=== PATIENT | female | born 1955 | race Caucasian/White ===

== ENCOUNTER 2019-08-31 18:52 | Inpatient (IN) ==
[2019-08-31 19:50] LABS: Base Excess VBG 7.5 mEq/L; Basophils # (auto) 0.03 K/uL (0-0.2); Basophils % (auto) 0.3 %; Eosinophils % (auto) 3.4 %; Hematocrit (blood only) 39.4 % (37-47); Hemoglobin 13.7 g/dL (12.0-16.0); Immature Granulocytes # (auto) 0.01 K/uL (0.00-0.02); Immature Granulocytes % (auto) 0.1 %; Lymphocytes # (auto) 1.65 K/uL (1.2-3.4); Lymphocytes % (auto) 18.6 %; Mean Corpuscular Hemoglobin 32.7 pg (25-34); Mean Corpuscular Hgb Conc 34.8 g/dL (32-36); Mean Platelet Volume 10.8 fL (7.4-10.4); Monocytes # (auto) 0.59 K/uL (0.11-0.59); Monocytes % (auto) 6.7 %; Neutrophils # (auto) 6.28 K/uL (1.4-6.5); Neutrophils % (auto) 70.9 %; Oxygen Saturation VBG 82.5 %; Platelet Count 232 K/uL (130-400); RDW Coefficient of Variation 12.8 % (11.5-14.5); RDW Standard Deviation 43.6 fL (36.4-46.3); Red Blood Count 4.19 M/uL (4.2-5.4); White Blood Count 8.86 K/uL (4.8-10.8); pH VBG 7.46 (7.36-7.41)
[2019-08-31 19:56] LABS: Partial Thromboplastin Time 27.2 Seconds (21.0-31.0); Prothrombin Time 10.5 Seconds (9.0-12.0)
[2019-08-31 20:01] LABS: Calcium 9.1 mg/dl (8.5-10.1); Creatinine Clr Calc Pharmacy 116.6 ml/min; Est GFR (African American) 111.2; Potassium 3.1 mmol/L (3.5-5.1)
--- NOTE | 2019-08-31 20:01 | XRay Report ---
XR chest 1V portable HISTORY: Atypical Chest Pain COMPARISON: None. FINDINGS: The cardiac silhouette is mildly enlarged. Mild diffuse interstitial thickening which is li terell chronic. No focal lung consolidations to suggest pneumonia. No evidence for pulmonary edema. No pleural effusions. No pneumothorax. IMPRESSION: Mild cardiomegaly and interstitial thickening which is likely chronic. ACT 112: Negative or not required by law. Electronically signed by: Juan Graff M.D. 08/31/2019 8:00 PM
[2019-08-31 20:10] LABS: Troponin I 0.049 ng/ml (0-0.045)
[2019-08-31] MEDS ORDERED: OPTIRAY 320 125ml IV PRN (20:43)
--- NOTE | 2019-08-31 20:57 | CT Scan Report ---
CHEST CTA for PULMONARY ARTERIES CT DOSE: 1083.39 mGy.cm HISTORY: Shortness of breath. TECHNIQUE: Multiaxial CT images of the chest were performed following the intravenous administration of contrast to evaluate the pulmonary arteries. Maximal intensity projection images were also obtaine d. A dose lowering technique was utilized adhering to the principles of ALARA. COMPARISON STUDY: None. FINDINGS: Mild calcified plaque within the normal caliber thoracic aorta. Inadequate contrast opacifi cation of the aorta to assess for a dissection. The heart is borderline enlarged. No pleural or peric ardial effusions. No filling defects within the pulmonary arteries to suggest pulmonary embolus. No f ractures within the visualized osseous structures. No mediastinal or hilar lymphadenopathy. Limited v iews of the upper abdomen demonstrate a normal liver and spleen. The visualized adrenal glands are un remarkable. Normal esophagus. Mild interlobular septal thickening. Patchy groundglass densities at th e lung bases favor mild dependent change. The central airways are patent. No pneumothorax. IMPRESSION: 1. No evidence for pulmonary embolus. 2. Mild interlobular septal thickening. This could represent developing pulmonary edema or a chronic interstitial process 3. Patchy groundglass densities at the lung bases favor mild dependent change. ACT 112: Negative or not required by law. Electronically signed by: Juan Graff M.D. 08/31/2019 8:56 PM
[2019-08-31] MEDS ORDERED: POTASSIUM CHLORIDE 10 MEQ TABCR PO STA (21:06)
[2019-08-31] MEDS ORDERED: FUROSEMIDE 40 MG/4 ML VIAL IV STA (21:06)
[2019-08-31] MEDS ORDERED: METOPROLOL TARTRATE 25 MG TAB PO STA (22:05)
[2019-08-31] MEDS ORDERED: ALBUT/IPRATROP 3MG/0.5MG NEB 3 ML VIAL NEB STA (22:07)
--- NOTE | 2019-08-31 22:17 | Emergency Department Note ---
Entered by Pilar Greene acting as a scribe for History of Present Illness General Chief complaint: Shortness of Breath/Dyspnea Stated complaint: SOB, HEAVY CHEST, FLUID IN FEET Time Seen by Provider: 08/31/19 19:13 History of Present Illness Provider complaint: shortness of breath Onset (ago): day(s) 3 Pain Consistency: + other (episode) Maximum Pain Intensity: 0 Quality: + other (shortness of breath) Exacerbated By: + other (lying flat) Associated symptoms: + cough (productive) and + other (elevated blood pressure, bilateral lower extremity swelling, recent weight gain, smoker) The patient is a 63 year old female who presents to the ED with complaints of an episode of shortness of breath that started 3 days ago. The patient states that her blood pressure has been higher than it has ever been in the past despite taking her medication. The patient states that she has also has a productive cough, bilateral swelling in her lower extremities and she believes she has been gaining weight. The patient notes that the only way she can sleep is propped upwards in a recliner because the shortness of breath is exacerbated by lying flat. The patient notes that she has a history of sleep apnea and she is a smoker. Patient denies any chest pain at this time. Home Medications Home Medications Medication Instructions Recorded Confirmed Type aspirin 81 mg PO HS 08/31/19 08/31/19 History atorvastatin 40 mg PO HS 08/31/19 08/31/19 History dorzolamide-timolol 1 drp OPB AMHS 08/31/19 08/31/19 History fluoxetine 40 mg PO HS 08/31/19 08/31/19 History furosemide 20 mg PO DAILY PRN 08/31/19 08/31/19 History latanoprost 1 drp OPB HS 08/31/19 08/31/19 History losartan 50 mg PO QAM 08/31/19 08/31/19 History omeprazole 20 mg PO QAM 08/31/19 08/31/19 History potassium chloride 10 meq PO QAM 08/31/19 08/31/19 History Allergies Allergy/AdvReac Type Severity Reaction Status Date / Time propoxyphene AdvReac Mild Nausea Verified 08/31/19 20:29 [From [facility]or] Past Med/Surg History Medical History (Updated 08/31/19 @ 21:14 by Pilar Greene) HTN (hypertension) Social History Feels Safe at Home: Yes Smoking Status: Current every day smoker Review of Systems See HPI for pertinent positives & negatives. and A total of 10 systems reviewed and were otherwise negative Physical Exam Vital Signs Vital Signs - 24 hr 08/31/19 19:06 08/31/19 19:45 08/31/19 20:52 Temperature 37.3 C Temperature Source Oral Pulse Rate 88 Pulse Rate [Apical] 85 Respiratory Rate 24 22 Respiratory Rate [Exercises] 24 Respiratory Rate [Recovery] 30 H Respiratory Rate [Resting] 20 Respiratory Effort / Characteristics Non-Labored Respiratory Depth Normal Blood Pressure 197/102 H Blood Pressure [Left Arm] 186/109 H Blood Pressure Mean 133 Blood Pressure Mean [Left Arm] 134 Pulse Oximetry 90 89 L Pulse Oximetry [Exercises] 85 L Pulse Oximetry [Recovery] 82 L Pulse Oximetry [Resting] 89 L Oxygen Delivery Method Room Air Room Air Nasal Cannula Oxygen Flow Rate 2 Sepsis Recent Fever Within 48 Hours No Sepsis Action Taken by Nursing No Action Required 08/31/19 20:54 Temperature Temperature Source Pulse Rate Pulse Rate [Apical] Respiratory Rate Respiratory Rate [Exercises] Respiratory Rate [Recovery] Respiratory Rate [Resting] Respiratory Effort / Characteristics Respiratory Depth Blood Pressure Blood Pressure [Left Arm] Blood Pressure Mean Blood Pressure Mean [Left Arm] Pulse Oximetry 93 Pulse Oximetry [Exercises] Pulse Oximetry [Recovery] Pulse Oximetry [Resting] Oxygen Delivery Method Nasal Cannula Oxygen Flow Rate 3 Sepsis Recent Fever Within 48 Hours Sepsis Action Taken by Nursing GENERAL: She is oriented to person, place, and time. She appears well-developed and well-nourished. She does not appear distressed. HENT: Exam performed. -Head: Normocephalic and atraumatic. -Right Ear: External ear normal. No mastoid tenderness. -Left Ear: External ear normal. No mastoid tenderness. -Mouth/Throat: The oropharynx is clear and moist. No trismus in the jaw. No dental abscesses or uvula swelling. No oropharyngeal exudate or tonsillar abscesses. EYES: Conjunctivae and EOM are normal. Pupils are equal, round, and reactive to light. Right eye exhibits no discharge. Left eye exhibits no discharge. No scleral icterus. NECK: Normal range of motion. Neck supple. No JVD present. No spinous process tenderness present. No carotid bruit present. No rigidity. No tracheal deviation and normal range of motion present. No Brudzinski's sign and no Kernig's sign noted. CV: Normal rate, regular rhythm, normal heart sounds and intact distal pulses. There is no peripheral edema. Palpable radial pulses bue. PULM/CHEST: Rales at bilateral bases. No respiratory distress. No stridor. She has no wheezes. Chest Wall: She exhibits no tenderness. ABD: The abdomen is soft. Bowel sounds are normal. She has no distension. No mass is present. There is no tenderness. There is no rebound, no guarding, no Zaidi's sign and no tenderness at McBurney's point. Rovsig negative MUSC/SKEL: 2+ pitting edema in bilateral lower extremities. Normal range of motion. There is no peripheral deformity. LYMPH: No cervical adenopathy. NEURO: She is alert and oriented to person, place, and time. She has normal s trength. No cranial nerve deficit or sensory deficit. Coordination and gait normal. GCS eye subscore is 4. GCS verbal subscore is 5. GCS motor subscore is 6. cerbellar tests wnl. SKIN: Skin is warm and dry. She is not diaphoretic. PSYCH: She has a normal mood and affect. Her behavior is normal. Judgment and thought content normal. Course Course 1914: Past medical records reviewed. The patient was evaluated in room C08. A complete history and physical exam was performed. 1948: Upon ambulation, the patient's oxygen came down to 82% on RA. I put her on oxygen at this time. 2108: Vital signs stable on supplemental oxygen. Imaging shows cardiomegaly and developing pulmonary edema. Labs show a proBNP that is negative and a slightly elevated troponin. Given the patient's history and physical, is thought that the patient is suffering from congestive heart failure. It is thought that the patient's mild troponin elevation is due to the just of heart failure. Patient continues to deny any chest pain at this time. Given that she is not having any chest pain, no heparinization will be done at this time and the patient's troponins will be trended by the admitting hospitalist team. I discussed the patient's case with Dr. Regan Zuleta Hospitalist. He will evaluate the patient for further management. Consultations Consultation #1: I discussed the patient's case with Dr. Regan Zuleta Hospitalist. He will evaluate the patient for further management. Time: 21:09 Administered Medications Ioversol (Optiray 320 125ml) 119 ml IV ONCE PRN PRN Reason: Interaction Checking Stop: 09/04/19 20:42 Last Admin: 08/31/19 20:44 Dose: 119 ml Documented by: [id number] Discontinued Medications Furosemide (Lasix) 40 mg IV NOW STA Stop: 08/31/19 21:07 Last Admin: 08/31/19 21:23 Dose: 40 mg Documented by: [id number] Potassium Chloride (Klor-Con M10) 40 meq PO NOW STA Stop: 08/31/19 21:07 Last Admin: 08/31/19 21:23 Dose: 40 meq Documented by: [id number] Critical Care Time Critical Care Time: Yes Total Critical Care Time: 63 I have personally spent 63 minutes of critical care time in the direct management of this patient. This includes bedside care, interpretation of diagno stic studies, and testing, discussion with consultants, patient, and family members, and other required patient management activities. This 63 minutes is in excess of all separately billable procedures. Medical Decision Making Medical Records Attestation: I reviewed the patient's medical records. Home Medications Current Medication List: was personally reviewed by me Laboratory Data Attestation: I reviewed the patient's lab results. Result diagrams: 08/31/19 19:27 08/31/19 19:27 Lab Results 08/31/19 08/31/19 08/31/19 Range/Units 19:27 19:27 19:27 WBC 8.86 (4.8-10.8) K/uL RBC 4.19 L (4.2-5.4) M/uL Hgb 13.7 (12.0-16.0) g/dL Hct 39.4 (37-47) % MCV 94.0 (80-100) fL MCH 32.7 (25-34) pg MCHC 34.8 (32-36) g/dL RDW Std Deviation 43.6 (36.4-46.3) fL RDW Coeff of Genaro 12.8 (11.5-14.5) % Plt Count 232 (130-400) K/uL MPV 10.8 H (7.4-10.4) fL Immature Gran % (Auto) 0.1 % Neut % (Auto) 70.9 % Lymph % (Auto) 18.6 % [place] % (Auto) 6.7 % Eos % (Auto) 3.4 % Baso % (Auto) 0.3 % Immature Gran # (Auto) 0.01 (0.00-0.02) K/uL Neut # (Auto) 6.28 (1.4-6.5) K/uL Lymph # (Auto) 1.65 (1.2-3.4) K/uL [place] # (Auto) 0.59 (0.11-0.59) K/uL Eos # (Auto) 0.30 (0-0.5) K/uL Baso # (Auto) 0.03 (0-0.2) K/uL PT 10.5 (9.0-12.0) Seconds INR 1.0 (0.9-1.1) APTT 27.2 (21.0-31.0) Seconds PTT Ratio 1.0 VBG pH 7.46 H (7.36-7.41) VBG pCO2 47 (38-50) mmHg VBG pO2 50 mmHg VBG HCO3 32 mmol/L VBG O2 Saturation 82.5 % VBG Base Excess 7.5 mEq/L Barometric Pressure 728.4 mm/Hg Sodium (136-145) mmol/L Potassium (3.5-5.1) mmol/L Chloride (98-107) mmol/L Carbon Dioxide (21-32) mmol/L Anion Gap (3-11) BUN (7-18) mg/dl Creatinine (0.6-1.2) mg/dl Est Cr Clr Drug Dosing ml/min Est GFR ( Amer) Est GFR (Non-Af Amer) BUN/Creatinine Ratio (10-20) Glucose (70-99) mg/dl Calcium (8.5-10.1) mg/dl Troponin I (0-0.045) ng/ml NT-Pro-B Natriuret Pep (0-900) pg/ml Lipase (73-393) U/L 08/31/19 Range/Units 19:27 WBC (4.8-10.8) K/uL RBC (4.2-5.4) M/uL Hgb (12.0-16.0) g/dL Hct (37-47) % MCV (80-100) fL MCH (25-34) pg MCHC (32-36) g/dL RDW Std Deviation (36.4-46.3) fL RDW Coeff of Genaro (11.5-14.5) % Plt Count (130-400) K/uL MPV (7.4-10.4) fL Immature Gran % (Auto) % Neut % (Auto) % Lymph % (Auto) % [place] % (Auto) % Eos % (Auto) % Baso % (Auto) % Immature Gran # (Auto) (0.00-0.02) K/uL Neut # (Auto) (1.4-6.5) K/uL Lymph # (Auto) (1.2-3.4) K/uL [place] # (Auto) (0.11-0.59) K/uL Eos # (Auto) (0-0.5) K/uL Baso # (Auto) (0-0.2) K/uL PT (9.0-12.0) Seconds INR (0.9-1.1) APTT (21.0-31.0) Seconds PTT Ratio VBG pH (7.36-7.41) VBG pCO2 (38-50) mmHg VBG pO2 mmHg VBG HCO3 mmol/L VBG O2 Saturation % VBG Base Excess mEq/L Barometric Pressure mm/Hg Sodium 143 (136-145) mmol/L Potassium 3.1 L (3.5-5.1) mmol/L Chloride 106 (98-107) mmol/L Carbon Dioxide 32 (21-32) mmol/L Anion Gap 5.0 (3-11) BUN 12 (7-18) mg/dl Creatinine 0.62 (0.6-1.2) mg/dl Est Cr Clr Drug Dosing 116.6 ml/min Est GFR ( Amer) 111.2 Est GFR (Non-Af Amer) 96.0 BUN/Creatinine Ratio 19.0 (10-20) Glucose 111 H (70-99) mg/dl Calcium 9.1 (8.5-10.1) mg/dl Troponin I 0.049 H* (0-0.045) ng/ml NT-Pro-B Natriuret Pep 618 (0-900) pg/ml Lipase 113 (73-393) U/L Imaging Data Radiologist's Impression: Radiology results as stated below per my review and the radiologist's interpretation: XR chest 1V portable HISTORY: Atypical Chest Pain COMPARISON: None. FINDINGS: The cardiac silhouette is mildly enlarged. Mild diffuse interstitial thickening which is likely chronic. No focal lung consolidations to suggest pneumonia. No evidence for pulmonary edema. No pleural effusions. No pneumothorax. IMPRESSION: Mild cardiomegaly and interstitial thickening which is likely chronic. ACT 112: Negative or not required by law. Electronically signed by: Juan Graff M.D. 08/31/2019 8:00 PM CHEST CTA for PULMONARY ARTERIES CT DOSE: 1083.39 mGy.cm HISTORY: Shortness of breath. TECHNIQUE: Multiaxial CT images of the chest were performed following the intravenous administration of contrast to evaluate the pulmonary arteries. Maximal intensity projection images were also obtained. A dose lowering techniq ue was utilized adhering to the principles of ALARA. COMPARISON STUDY: None. FINDINGS: Mild calcified plaque within the normal caliber thoracic aorta. Inadequate contrast opacification of the aorta to assess for a dissection. The heart is borderline enlarged. No pleural or pericardial effusions. No filling defects within the pulmonary arteries to suggest pulmonary embolus. No fractures within the visualized osseous structures. No mediastinal or hilar lymphadenopathy. Limited views of the upper abdomen demonstrate a normal liver and spleen. The visualized adrenal glands are unremarkable. Normal esophagus. Mild interlobular septal thickening. Patchy groundglass densities at the lung bases favor mild dependent change. The central airways are patent. No pneumothorax. IMPRESSION: 1. No evidence for pulmonary embolus. 2. Mild interlobular septal thickening. This could represent developing pulmonary edema or a chronic interstitial process 3. Patchy groundglass densities at the lung bases favor mild dependent change. ACT 112: Negative or not required by law. Electronically signed by: Juan Graff M.D. 08/31/2019 8:56 PM ECG Data Attestation: I personally reviewed and interpreted this ECG as follows: Indication: + SOB/dyspnea Rate (beats per minute): 86 Rhythm: + sinus rhythm ECG Intervals/blocks: + Normal QRS, + Normal MD and + Normal QT-c ECG ST segments: no ST depression and no ST elevation Blood Pressure Blood Pressure Findings: Elevated blood pressure Blood Pressure Disposition: further management by hospitalist [facility] Narrative 1915: Past medical records reviewed. The patient was evaluated in room C08. A complete history and physical exam was performed. 1948: Upon ambulation, the patient's oxygen came down to 82% on RA. I put her on oxygen at this time. 2108: Vital signs stable on supplemental oxygen. Imaging shows cardiomegaly and developing pulmonary edema. Labs show a proBNP that is negative and a slightly elevated troponin. Given the patient's history and physical, is thought that the patient is suffering from congestive heart failure. It is thought that the patient's mild troponin elevation is due to the just of heart failure. Patient continues to deny any chest pain at this time. Given that she is not having any chest pain, no heparinization will be done at this time and the patient's troponins will be trended by the admitting hospitalist team. I discussed the patient's case with Dr. Regan Zuleta Hospitalist. He will evaluate the patient for further management. Impression & Plan Hypoxia, CHF (congestive heart failure) Discharge Plan Visit Data Chief Complaint: Shortness of Breath/Dyspnea Stated Complaint: SOB, HEAVY CHEST, FLUID IN FEET ED Provider: Frank Macias Discharge Problem: Hypoxia, CHF (congestive heart failure) Patient Disposition: Being Evaluated by Hospitalist Forms Stand Alone Forms: My [facility], Important Visit Information Prescriptions Prescriptions: No Action losartan 50 mg Tablet 50 mg PO QAM RF: 0 fluoxetine 40 mg Capsule 40 mg PO HS RF: 0 latanoprost 0.005 % Drops 1 drp OPB HS RF: 0 atorvastatin 40 mg Tablet 40 mg PO HS RF: 0 potassium chloride 10 mEq Tablet Extended Release 10 meq PO QAM RF: 0 aspirin 81 mg Tablet,Delayed Release (Dr/Ec) 81 mg PO HS RF: 0 omeprazole 20 mg Capsule,Delayed Release(Dr/Ec) 20 mg PO QAM RF: 0 dorzolamide-timolol 22.3-6.8 mg/mL Drops 1 drp OPB AMHS RF: 0 furosemide 20 mg Tablet 20 mg PO DAILY PRN (Reason: Fluid Retention) RF: 0 Referrals Referrals: Sara Goode MD [Primary Care Provider] - Discharge Problem: CHF (congestive heart failure) Qualifiers: Heart failure type: unspecified Heart failure chronicity: unspecified Qualified Code(s): I50.9 - Heart failure, unspecified The scribe's documentation has been prepared under my direction and personally reviewed by me in its entirety. I confirm that the note above accurately reflects all work, treatment, procedures, and medical decision making performed by me.
[2019-08-31 22:19] LABS: Magnesium 1.2 mg/dl (1.8-2.4)
[2019-08-31] MEDS ORDERED: DOXYCYCLINE HYCLATE 100 MG in DEXTROSE 5% 100 ML IV STA (23:57)
--- NOTE | 2019-08-31 23:57 | History & Physical Report ---
Date of Service August 31, 2019 Assessment & Plan (1) Acute hypoxemic respiratory failure: Secondary to COPD exacerbation/complicated bronchitis No sepsis for now ? Subacute R sided CHF with fluid retention complaints rule out pulmonary hypertension given SHAN, CPAP noncompliance the last 2 years secondary to poor fitting mask as per patient. Hypertension, elevated secondary to illness Transient chest pain, troponin elevation secondary to above Hypokalemia, hypomagnesemia Anxiety/mood disorder at baseline Hyperglycemia rule out DM past alcohol abuse ongoing tobacco abuse PCU Supplemental O2 Doxycycline, nebs, prednisone course Lasix 1 more dose in a.m. Follow troponin, titrate Losartan rx TTE, Cardiology consult RE troponin elevation, fluid retention rule out CHF/pulmonary hypertension Replace electrolytes outpatient sleep study for new CPAP setting prescription Check hemoglobin A1c, basal insulin, ISS BG goal 140099 anticipated hyperglycemia from steroid Rx nicotine patch DVT prophylaxis Lovenox subcu Full code History of Present Illness Chief Complaint: Short of breath Primary Care Provider: MATT Lawson History obtained from patient, family, and records. Medical history significant for hypertension, COPD, ongoing tobacco abuse, anxiety/mood disorder, chronic back pain, past alcohol abuse as per records, SHAN (currently CPAP noncompliance). 2 weeks history of junky cough symptoms with shortness of breath. No fever, no chills. Possible sick contacts. No aspiration although patient admits to occasional swallowing problem issues. Transient squeezing substernal discomfort today associated with some fluid retention, possible weight gain in the last few days as per patient. At the ER, patient noted to be hypoxemic. Patient received Lasix for possible CHF. 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 [employer] Allergies Allergy/AdvReac Type Severity Reaction Status Date / Time propoxyphene AdvReac Mild Nausea Verified 08/31/19 20:29 [From Darvocet-N] Home Medications Home Medications Medication Instructions Recorded Confirmed Type aspirin 81 mg PO HS 08/31/19 08/31/19 History atorvastatin 40 mg PO HS 08/31/19 08/31/19 History dorzolamide-timolol 1 drp OPB [facility] 08/31/19 08/31/19 History fluoxetine 40 mg PO HS 08/31/19 08/31/19 History furosemide 20 mg PO DAILY PRN 08/31/19 08/31/19 History latanoprost 1 drp OPB 08/31/19 08/31/19 History losartan 50 mg PO QAM 08/31/19 08/31/19 History omeprazole 20 mg PO QAM 08/31/19 08/31/19 History potassium chloride 10 meq PO QAM 08/31/19 08/31/19 History Past Med/Surg History Medical History (Updated 09/01/19 @ 08:12 by Jake Khan MD) HTN (hypertension) Social History Preferred Language: Tajik Communication Ability: Effective Humanities Division Chair Required: No Beliefs That Will Affect Care: None Current Living Situation: Significant Other Other Information That Helps Us Care for You: No Feels Safe at Home: Yes Safety Concerns: Feels Safe At This Time Smoking Status: Current every day smoker Tobacco Type: cigarettes ; Cigarettes Per Day: 20 ; Hx Alcohol Use: Yes Alcohol type: hard liquor Hx Substance Use: No Review of Systems Review of Systems: As per HPI, all 10 systems reviewed, all other ROS negative Physical Exam Physical Exam: GENERAL: Comfortable, obese, pleasant, slightly anxious, no respiratory distress SKIN: Normal color, warm HEENT: [place] palpebral conjunctivae, no ptosis, moist buccal mucosa, nasal cannula in place NECK : Supple, short neck, no tenderness CHEST : Decreased breath sounds, occasional expiratory wheezes, no tenderness HEART : RRR, no obvious murmurs ABDOMEN: Some distention, nontender EXTREMITIES : Minimal LE swelling, no LE tenderness, no other conspicuous deformities noted NEUROLOGIC : Coherent, no facial asymmetry, no other gross focality Results & Data Vital Signs (Past 12 Hours) Vital Signs Temp Pulse Pulse Resp Resp Resp Resp 08/31/19 23:41 69 22 08/31/19 22:41 77 20 08/31/19 22:24 83 16 08/31/19 20:54 08/31/19 20:52 85 22 08/31/19 19:45 24 30 H 20 08/31/19 19:06 37.3 C 88 24 BP BP Pulse Ox Pulse Ox Pulse Ox Pulse Ox 08/31/19 23:41 93 08/31/19 22:41 159/95 H 93 08/31/19 22:24 91 08/31/19 20:54 93 08/31/19 20:52 186/109 H 89 L 08/31/19 19:45 85 L 82 L 89 L 08/31/19 19:06 197/102 H 90 Laboratory Results Laboratory Results WBC 8.86 K/uL (4.8-10.8) 08/31/19 19: RBC 4.19 M/uL (4.2-5.4) L 08/31/19 19:27 Hgb 13.7 g/dL (12.0-16.0) 08/31/19 19:27 Hct 39.4 % (37-47) 08/31/19 19: MCV 94.0 fL (80-100) 08/31/19 19: MCH 32.7 pg (25-34) 08/31/19: MCHC 34.8 g/dL (32-36) 08/31/19 19: RDW Std Deviation 43.6 fL (36.4-46.3) 08/31/19: RDW Coeff of Genaro 12.8 % (11.5-14.5) 08/31/19 19: Plt Count 232 K/uL (130-400) 08/31/19 19: MPV 10.8 fL (7.4-10.4) H 08/31/19 19: Immature Gran % (Auto) 0.1 % 08/31/19 19: Neut % (Auto) 70.9 % 08/31/19 19: Lymph % (Auto) 18.6 % 08/31/19: [place] % (Auto) 6.7 % 08/31/19 19: Eos % (Auto) 3.4 % 08/31/19 19: Baso % (Auto) 0.3 % 08/31/19: Immature Gran # (Auto) 0.01 K/uL (0.00-0.02) 08/31/19: Neut # (Auto) 6.28 K/uL (1.4-6.5) 08/31/19 19: Lymph # (Auto) 1.65 K/uL (1.2-3.4) 08/31/19 19: Nye # (Auto) 0.59 K/uL (0.11-0.59) 08/31/19 19: Eos # (Auto) 0.30 K/uL (0-0.5) 08/31/19 19: Baso # (Auto) 0.03 K/uL (0-0.2) 08/31/19 19: PT 10.5 Seconds (9.0-12.0) 08/31/19 19: INR 1.0 (0.9-1.1) 08/31/19: APTT 27.2 Seconds (21.0-31.0) 08/31/19 19: PTT Ratio 1.0 08/31/19 19: VBG pH 7.46 (7.36-7.41) H 08/31/19 19: VBG pCO2 47 mmHg (38-50) 08/31/19: VBG pO2 50 mmHg 08/31/19: VBG HCO3 32 mmol/L 08/31/19: VBG O2 Saturation 82.5 % 08/31/19: VBG Base Excess 7.5 mEq/L 08/31/19 19: Barometric Pressure 728.4 mm/Hg 08/31/19 19: Sodium 143 mmol/L (136-145) 08/31/19 19: Potassium 3.1 mmol/L (3.5-5.1) L 08/31/19 19: Chloride 106 mmol/L (98-107) 08/31/19 19: Carbon Dioxide 32 mmol/L (21-32) 08/31/19: Anion Gap 5.0 (3-11) 08/31/19 19: BUN 12 mg/dl (7-18) 08/31/19 19: Creatinine 0.62 mg/dl (0.6-1.2) 08/31/19 19: Est Cr Clr Drug Dosing 116.6 ml/min 08/31/19 19: Est GFR ( Amer) 111.2 08/31/19 19: Est GFR (Non-Af Amer) 96.0 08/31/19: BUN/Creatinine Ratio 19.0 (10-20) 08/31/19: Glucose 111 mg/dl (70-99) H 01/03/20 19:27 Calcium 9.1 mg/dl (8.5-10.1) 08/31/19 19:27 Magnesium 1.2 mg/dl (1.8-2.4) L 08/31/19 19:27 Troponin I 0.047 ng/ml (0-0.045) H* 08/31/19 23:13 NT-Pro-B Natriuret Pep 618 pg/ml (0-900) 08/31/19 19:27 Lipase 113 U/L (73-393) 08/31/19 19:[address] chest initial read: 1. No evidence for pulmonary embolus. 2. Mild interlobular septal thickening. This could represent developing pulmonary edema or a chronic interstitial process 3. Patchy groundglass densities at the lung bases favor mild dependent change. EKG as per my interpretation : rate 85, NSR, normal axis, T wave flattening septal leads,
[2019-09-01] MEDS ORDERED: ACETAMINOPHEN 325 MG TAB PO PRN (01:21)
[2019-09-01] MEDS ORDERED: DEXTROSE 50% 50 ML SYRINGE IV PRN (01:21)
[2019-09-01] MEDS ORDERED: INSULIN GLARGINE SOLOSTAR 100 UNITS/ML 3 ML PEN SC STA (01:21)
[2019-09-01] MEDS ORDERED: GLUCOSE 10 TABS/TUBE PO PRN (01:21)
[2019-09-01] MEDS ORDERED: MoRPHine SULFATE 4 MG/ML 1 ML CARP\\VIAL IV PRN (01:21)
[2019-09-01] MEDS ORDERED: POTASSIUM CHLORIDE 10 MEQ TABCR PO STA (01:21)
[2019-09-01] MEDS ORDERED: PROMETHAZINE HCL 12.5 MG in SODIUM CHLORIDE 0.9% 50 ML IV PRN (01:21)
[2019-09-01] MEDS ORDERED: GLUCOSE 40% GEL 15 GM TUBE PO PRN (01:21)
[2019-09-01] MEDS ORDERED: CARBOHYDRATES FOR HYPOGLYCEMIA PO PRN (01:21)
[2019-09-01] MEDS ORDERED: ALBUT/IPRATROP 3MG/0.5MG NEB 3 ML VIAL NEB STA (01:21)
[2019-09-01] MEDS ORDERED: GLUCAGON FOR INJ 1 MG VIAL SQ PRN (01:21)
[2019-09-01] MEDS: MAGNESIUM SULFATE / D5W 1 GM/100 ML BAG IV SCH ×3 (02:14→04:49)
[2019-09-01] MEDS: INSULIN ASPART 100 UNITS/ML 3 ML PEN SC SCH ×5 (02:23→20:01)
[2019-09-01] MEDS: LOSARTAN POTASSIUM 50 MG TAB PO SCH (02:51)
[2019-09-01] MEDS: NICOTINE 14 MG/24 HR PATCH TD SCH (02:51)
[2019-09-01 03:15] LABS: Influenza A virus by PCR Neg for Influ A (Neg); Influenza B virus by PCR Neg for Influ B (Neg)
--- NOTE | 2019-09-01 05:52 | Ultrasound Report ---
Study: Survey abdominal ultrasound HISTORY: Distention. FINDINGS: No evidence for ascites IMPRESSION: No evidence for ascites Electronically signed by: Marcial Zelaya M.D. 09/01/2019 5:51 AM
[2019-09-01 05:53] LABS: Basophils # (auto) 0.01 K/uL (0-0.2); Basophils % (auto) 0.1 %; Eosinophils # (auto) 0.01 K/uL (0-0.5); Eosinophils % (auto) 0.1 %; Hematocrit (blood only) 42.7 % (37-47); Hemoglobin 14.8 g/dL (12.0-16.0); Immature Granulocytes # (auto) 0.03 K/uL (0.00-0.02); Immature Granulocytes % (auto) 0.3 %; Lymphocytes # (auto) 0.72 K/uL (1.2-3.4); Lymphocytes % (auto) 7.6 %; Mean Corpuscular Hemoglobin 32.7 pg (25-34); Mean Corpuscular Hgb Conc 34.7 g/dL (32-36); Mean Corpuscular Volume 94.3 fL (80-100); Mean Platelet Volume 10.9 fL (7.4-10.4); Monocytes # (auto) 0.11 K/uL (0.11-0.59); Monocytes % (auto) 1.2 %; Neutrophils # (auto) 8.55 K/uL (1.4-6.5); Neutrophils % (auto) 90.7 %; Platelet Count 237 K/uL (130-400); RDW Coefficient of Variation 12.7 % (11.5-14.5); RDW Standard Deviation 43.2 fL (36.4-46.3); Red Blood Count 4.53 M/uL (4.2-5.4); White Blood Count 9.43 K/uL (4.8-10.8)
--- NOTE | 2019-09-01 05:55 | Ultrasound Report ---
US venous doppler LE BI HISTORY: Pain. Edema. leg swelling COMPARISON STUDY: None. FINDINGS: There is normal compressibility, flow, and augmentation within the bilateral lower extremit y deep venous systems. IMPRESSION: No DVT within the right or left lower extremity. ACT 112: Negative or not required by law. The above report was generated using voice recognition software. It may contain grammatical, syntax or spelling errors. Electronically signed by: Marcial Zelaya M.D. 09/01/2019 5:53 AM
[2019-09-01 06:26] LABS: BUN Creatinine Ratio 15.3 (10-20); Creatinine Clr Calc Pharmacy 121.4 ml/min; Est GFR (African American) 112.4; Magnesium 2.6 mg/dl (1.8-2.4); Potassium 3.5 mmol/L (3.5-5.1)
[2019-09-01] MEDS ORDERED: XOPENEX/ATROVENT 1.25mg/0.5MG NEB COMBO NEB SCH (07:00)
[2019-09-01] MEDS: LEVALBUTEROL 1.25MG/0.5ML NEB INH SCH ×3 (07:09→19:19)
[2019-09-01] MEDS: IPRATROPIUM BROMIDE NEB SOLN 0.02% 2.5 ML VIAL INH SCH ×3 (07:09→19:20)
[2019-09-01] MEDS: OXYCODONE HCL IR 5 MG TAB (IMMEDIATE RELEASE) PO PRN ×2 (07:13→20:07)
[2019-09-01 07:36] LABS: Estimated Average Glucose 111 mg/dl; Hemoglobin A1C 5.5 % (4.5-5.6)
[2019-09-01] MEDS ORDERED: FUROSEMIDE 40 MG/4 ML VIAL IV ONE (08:00)
[2019-09-01] MEDS: DOXYCYCLINE HYCLATE 100 MG CAP PO SCH ×2 (08:12→19:59)
[2019-09-01] MEDS: PANTOprazole 40 MG TAB PO SCH (08:13)
[2019-09-01] MEDS: ENOXAPARIN INJ 40 MG/0.4 ML SYR SQ SCH (08:13)
[2019-09-01] MEDS: DORZOLAMIDE/TIMOLOL 22.3/6.8MG/ML 10 ML BTL OPB SCH ×2 (08:13→19:57)
[2019-09-01] MEDS ORDERED: LOSARTAN POTASSIUM 50 MG TAB PO SCH (09:00)
--- NOTE | 2019-09-01 09:24 | Hospitalist Progress Note ---
Date of Service September 01, 2019 Assessment & Plan (1) Acute hypoxemic respiratory failure: Secondary to HFpEF vs. COPD exacerbation/complicated bronchitis No sepsis for now ? Subacute R sided CHF with fluid retention complaints rule out pulmonary hypertension given SHAN, CPAP noncompliance the last 2 years secondary to poor fitting mask as per patient -Patient says that she is in the process of having the CPAP issue resolved -Patient received treatment, IV Lasix 40 mg and responded well, her swelling has resolved overnight and she is no longer in respiratory distress however still using supplemental oxygen -Continue supplemental O2 -Transient chest pain, troponin elevation secondary to above (chest pain has resolved) -Echo pending Update: Echocardiogram shows LV EF 55 to 60%, mild concentric LVH, LV wall motion is normal, diastolic dysfunction, grade 2 -Cardiology consulted - due to findings of diastolic dysfunction, and mild troponin elevation, and given significant underlying risk factors for coronary heart disease, further evaluation for underlying ischemic disease is likely warranted either during this hospital stay or as an outpatient -Patient also received breathing treatments, steroids and doxycycline for COPD exacerbation/complicated bronchitis Hypertension, elevated secondary to illness -BP now much improved Hypokalemia, hypomagnesemia -Replete and monitor Ongoing tobacco abuse -Currently determined to quit smoking, and using nicotine patch -I counseled the patient on smoking cessation, and also provided 1 800 quit now smoking cessation line number Anxiety/mood disorder at baseline Hyperglycemia rule out DM past alcohol abuse Hyperglycemia -Most likely secondary to steroid use Check hemoglobin A1c, basal insulin, ISS BG goal [id number] DVT prophylaxis: Lovenox subcu Full code Subjective Patient sitting up on the bed, in no acute distress, but on supplemental oxygen. Says she feels much better than yesterday, reports hand swelling, lower extremity swelling and also abdominal girth swelling which has resolved after treatment/IV Lasix. Says that she takes furosemide as needed (several times a week for swelling). Denies any chest pain, palpitations, abdominal pain, nausea, vomiting. Says that her breathing is much better. Also reports history of sleep apnea however not using CPAP, says she is in the process of having that resolved. Review of Systems Review of Systems: All systems reviewed & are unremarkable except as noted in HPI & below Constitutional: no fever and no chills Respiratory: + dyspnea; no cough and no pain on inspiration Cardiovascular: + edema; no chest pain and no palpitations Gastrointestinal: no abdominal pain, no nausea and no vomiting Physical Exam Physical Exam: GENERAL: obese female pleasant, in no acute distress, however on 1 L of supplemental oxygen HEENT: Normocephalic, atraumatic, EOMI, PERRL, moist buccal mucosa, nasal cannula in place NECK : Supple, short neck, no tenderness CHEST : Decreased breath sounds, occasional expiratory wheezes, no tenderness HEART : RRR, no obvious murmurs ABDOMEN: +bowel sounds, soft, some distention, nontender EXTREMITIES : trace LE swelling b/l (much improved), no LE tenderness, moves all 4 extremities spontaneously SKIN: Normal color, warm NEUROLOGIC : Alert and oriented x3, no facial asymmetry, speech fluent, moves all 4 extremities spontaneously Results & Data Vital Signs (Past 12 Hours) Vital Signs Temp Pulse Pulse Resp BP Pulse Ox Pulse Ox 09/01/19 07:34 36.3 C L 71 19 144/97 H 97 09/01/19 07:12 74 18 93 09/01/19 03:58 36.8 C 76 18 137/75 93 09/01/19 01:48 73 16 94 09/01/19 01:22 36.9 C 74 24 163/94 H 92 09/01/19 01:21 93 09/01/19 00:33 68 20 145/77 H 95 08/31/19 23:41 69 22 93 08/31/19 22:41 77 20 159/95 H 93 08/31/19 22:24 83 16 91 Laboratory Results 09/01/19 09/01/19 09/01/19 Range/Units 07:17 05:29 05:29 WBC 9.43 (4.8-10.8) K/uL RBC 4.53 (4.2-5.4) M/uL Hgb 14.8 (12.0-16.0) g/dL Hct 42.7 (37-47) % MCV 94.3 (80-100) fL MCH 32.7 (25-34) pg MCHC 34.7 (32-36) g/dL RDW Std Deviation 43.2 (36.4-46.3) fL RDW Coeff of Genaro 12.7 (11.5-14.5) % Plt Count 237 (130-400) K/uL MPV 10.9 H (7.4-10.4) fL Immature Gran % (Auto) 0.3 % Neut % (Auto) 90.7 % Lymph % (Auto) 7.6 % [place] % (Auto) 1.2 % Eos % (Auto) 0.1 % Baso % (Auto) 0.1 % Immature Gran # (Auto) 0.03 H (0.00-0.02) K/uL Neut # (Auto) 8.55 H (1.4-6.5) K/uL Lymph # (Auto) 0.72 L (1.2-3.4) K/uL [place] # (Auto) 0.11 (0.11-0.59) K/uL Eos # (Auto) 0.01 (0-0.5) K/uL Baso # (Auto) 0.01 (0-0.2) K/uL PT (9.0-12.0) Seconds INR (0.9-1.1) APTT (21.0-31.0) Seconds PTT Ratio VBG pH (7.36-7.41) VBG pCO2 (38-50) mmHg VBG pO2 mmHg VBG HCO3 mmol/L VBG O2 Saturation % VBG Base Excess mEq/L Barometric Pressure mm/Hg Sodium 140 (136-145) mmol/L Potassium 3.5 (3.5-5.1) mmol/L Chloride 103 (98-107) mmol/L Carbon Dioxide 31 (21-32) mmol/L Anion Gap 6.0 (3-11) BUN 9 (7-18) mg/dl Creatinine 0.60 (0.6-1.2) mg/dl Est Cr Clr Drug Dosing 121.4 ml/min Est GFR ( Amer) 112.4 Est GFR (Non-Af Amer) 97.0 BUN/Creatinine Ratio 15.3 (10-20) Glucose 164 H (70-99) mg/dl POC Glucose 154 H (70-99) Estimat Average Glucose mg/dl Hemoglobin A1c (4.5-5.6) % Calcium 9.0 (8.5-10.1) mg/dl Magnesium 2.6 H (1.8-2.4) mg/dl Troponin I (0-0.045) ng/ml NT-Pro-B Natriuret Pep (0-900) pg/ml Lipase (73-393) U/L Influenza Type A (PCR) (Neg) Influenza Type B (PCR) (Neg) 09/01/19 09/01/19 08/31/19 Range/Units 02:22 02:00 23:13 WBC (4.8-10.8) K/uL RBC (4.2-5.4) M/uL Hgb (12.0-16.0) g/dL Hct (37-47) % MCV (80-100) fL MCH (25-34) pg MCHC (32-36) g/dL RDW Std Deviation (36.4-46.3) fL RDW Coeff of Genaro (11.5-14.5) % Plt Count (130-400) K/uL MPV (7.4-10.4) fL Immature Gran % (Auto) % Neut % (Auto) % Lymph % (Auto) % [place] % (Auto) % Eos % (Auto) % Baso % (Auto) % Immature Gran # (Auto) (0.00-0.02) K/uL Neut # (Auto) (1.4-6.5) K/uL Lymph # (Auto) (1.2-3.4) K/uL [place] # (Auto) (0.11-0.59) K/uL Eos # (Auto) (0-0.5) K/uL Baso # (Auto) (0-0.2) K/uL PT (9.0-12.0) Seconds INR (0.9-1.1) APTT (21.0-31.0) Seconds PTT Ratio VBG pH (7.36-7.41) VBG pCO2 (38-50) mmHg VBG pO2 mmHg VBG HCO3 mmol/L VBG O2 Saturation % VBG Base Excess mEq/L Barometric Pressure mm/Hg Sodium (136-145) mmol/L Potassium (3.5-5.1) mmol/L Chloride (98-107) mmol/L Carbon Dioxide (21-32) mmol/L Anion Gap (3-11) BUN (7-18) mg/dl Creatinine (0.6-1.2) mg/dl Est Cr Clr Drug Dosing ml/min Est GFR ( Amer) Est GFR (Non-Af Amer) BUN/Creatinine Ratio (10-20) Glucose (70-99) mg/dl POC Glucose 135 H (70-99) Estimat Average Glucose mg/dl Hemoglobin A1c (4.5-5.6) % Calcium (8.5-10.1) mg/dl Magnesium (1.8-2.4) mg/dl Troponin I 0.047 H* (0-0.045) ng/ml NT-Pro-B Natriuret Pep (0-900) pg/ml Lipase (73-393) U/L Influenza Type A (PCR) Neg for Influ A (Neg) Influenza Type B (PCR) Neg for Influ B (Neg) 08/31/19 08/31/19 08/31/19 Range/Units 19:27 19:27 19:27 WBC (4.8-10.8) K/uL RBC (4.2-5.4) M/uL Hgb (12.0-16.0) g/dL Hct (37-47) % MCV (80-100) fL MCH (25-34) pg MCHC (32-36) g/dL RDW Std Deviation (36.4-46.3) fL RDW Coeff of Genaro (11.5-14.5) % Plt Count (130-400) K/uL MPV (7.4-10.4) fL Immature Gran % (Auto) % Neut % (Auto) % Lymph % (Auto) % [place] % (Auto) % Eos % (Auto) % Baso % (Auto) % Immature Gran # (Auto) (0.00-0.02) K/uL Neut # (Auto) (1.4-6.5) K/uL Lymph # (Auto) (1.2-3.4) K/uL [place] # (Auto) (0.11-0.59) K/uL Eos # (Auto) (0-0.5) K/uL Baso # (Auto) (0-0.2) K/uL PT 10.5 (9.0-12.0) Seconds INR 1.0 (0.9-1.1) APTT 27.2 (21.0-31.0) Seconds PTT Ratio 1.0 VBG pH (7.36-7.41) VBG pCO2 (38-50) mmHg VBG pO2 mmHg VBG HCO3 mmol/L VBG O2 Saturation % VBG Base Excess mEq/L Barometric Pressure mm/Hg Sodium 143 (136-145) mmol/L Potassium 3.1 L (3.5-5.1) mmol/L Chloride 106 (98-107) mmol/L Carbon Dioxide 32 (21-32) mmol/L Anion Gap 5.0 (3-11) BUN 12 (7-18) mg/dl Creatinine 0.62 (0.6-1.2) mg/dl Est Cr Clr Drug Dosing 116.6 ml/min Est GFR ( Amer) 111.2 Est GFR (Non-Af Amer) 96.0 BUN/Creatinine Ratio 19.0 (10-20) Glucose 111 H (70-99) mg/dl POC Glucose (70-99) Estimat Average Glucose 111 mg/dl Hemoglobin A1c 5.5 (4.5-5.6) % Calcium 9.1 (8.5-10.1) mg/dl Magnesium 1.2 L (1.8-2.4) mg/dl Troponin I 0.049 H* (0-0.045) ng/ml NT-Pro-B Natriuret Pep 618 (0-900) pg/ml Lipase 113 (73-393) U/L Influenza Type A (PCR) (Neg) Influenza Type B (PCR) (Neg) 08/31/19 08/31/19 Range/Units 19:27 19:27 WBC 8.86 (4.8-10.8) K/uL RBC 4.19 L (4.2-5.4) M/uL Hgb 13.7 (12.0-16.0) g/dL Hct 39.4 (37-47) % MCV 94.0 (80-100) fL MCH 32.7 (25-34) pg MCHC 34.8 (32-36) g/dL RDW Std Deviation 43.6 (36.4-46.3) fL RDW Coeff of Genaro 12.8 (11.5-14.5) % Plt Count 232 (130-400) K/uL MPV 10.8 H (7.4-10.4) fL Immature Gran % (Auto) 0.1 % Neut % (Auto) 70.9 % Lymph % (Auto) 18.6 % [place] % (Auto) 6.7 % Eos % (Auto) 3.4 % Baso % (Auto) 0.3 % Immature Gran # (Auto) 0.01 (0.00-0.02) K/uL Neut # (Auto) 6.28 (1.4-6.5) K/uL Lymph # (Auto) 1.65 (1.2-3.4) K/uL [place] # (Auto) 0.59 (0.11-0.59) K/uL Eos # (Auto) 0.30 (0-0.5) K/uL Baso # (Auto) 0.03 (0-0.2) K/uL PT (9.0-12.0) Seconds INR (0.9-1.1) APTT (21.0-31.0) Seconds PTT Ratio VBG pH 7.46 H (7.36-7.41) VBG pCO2 47 (38-50) mmHg VBG pO2 50 mmHg VBG HCO3 32 mmol/L VBG O2 Saturation 82.5 % VBG Base Excess 7.5 mEq/L Barometric Pressure 728.4 mm/Hg Sodium (136-145) mmol/L Potassium (3.5-5.1) mmol/L Chloride (98-107) mmol/L Carbon Dioxide (21-32) mmol/L Anion Gap (3-11) BUN (7-18) mg/dl Creatinine (0.6-1.2) mg/dl Est Cr Clr Drug Dosing ml/min Est GFR ( Amer) Est GFR (Non-Af Amer) BUN/Creatinine Ratio (10-20) Glucose (70-99) mg/dl POC Glucose (70-99) Estimat Average Glucose mg/dl Hemoglobin A1c (4.5-5.6) % Calcium (8.5-10.1) mg/dl Magnesium (1.8-2.4) mg/dl Troponin I (0-0.045) ng/ml NT-Pro-B Natriuret Pep (0-900) pg/ml Lipase (73-393) U/L Influenza Type A (PCR) (Neg) Influenza Type B (PCR) (Neg) Medications Administered Current Inpatient Medications Acetaminophen (Tylenol) 650 mg PO Q4H PRN PRN Reason: Pain or Fever Stop: 10/01/19 01:20 Aspirin (Ecotrin Ectab) 81 mg PO HS [facility] Stop: 02/03/20 20:59 Atorvastatin Calcium (Lipitor) 40 mg PO HS [facility] Stop: 10/01/19 20:59 Dextrose (Dextrose 50%) 25 - 50 ml IV UD PRN; Protocol PRN Reason: Hypoglycemia Protocol Stop: 10/01/19 01:20 Dorzolamide/Timolol (Cosopt) 1 drops OPB BID [facility] Stop: 10/01/19 08:59 Last Admin: 09/01/19 08:13 Dose: 1 drops Documented by: Doxycycline Hyclate (Vibramycin) 100 mg PO BID [facility] Stop: 09/08/19 08:59 Last Admin: 09/01/19 08:12 Dose: 100 mg Documented by: Enoxaparin Sodium (Lovenox) 40 mg SQ QAM [facility] Stop: 10/01/19 08:59 Last Admin: 09/01/19 08:13 Dose: 40 mg Documented by: Fluoxetine HCl (Prozac) 40 mg PO HS [facility] Stop: 10/01/19 20:59 Glucagon (Glucagen) 1 mg SQ UD PRN; Protocol PRN Reason: Hypoglycemia Protocol Stop: 10/01/19 01:20 Glucose (Dex4 Glucose) 4 - 8 tabs PO UD PRN; Protocol PRN Reason: Hypoglycemia Protocol Stop: 10/01/19 01:20 Glucose (Glucose 40%) 15 - 30 gm PO UD PRN; Protocol PRN Reason: Hypoglycemia Protocol Stop: 10/01/19 01:20 Promethazine HCl 12.5 mg/ (Sodium Chloride) 50.5 mls @ 202 mls/hr IV Q6H PRN PRN Reason: Nausea And Vomiting Stop: 10/01/19 01:20 Insulin Aspart (Novolog Flexpen) 0 units SC ACHS [facility] Stop: 10/01/19 01:20 Last Admin: 09/01/19 08:16 Dose: 4 units Documented by: Insulin Glargine (Lantus Solostar Pen) 5 units SQ HS [facility] Stop: 10/01/19 20:59 Ipratropium Armbrust (Atrovent 0.02% 0.5mg/2.5ml) 0.5 mg INH Q6R [facility] Stop: 10/01/19 06:59 Last Admin: 09/01/19 07:09 Dose: 0.5 mg Documented by: Latanoprost (Xalatan Oph) 1 drops OPB HS [facility] Stop: 10/01/19 20:59 Levalbuterol HCl (Xopenex 1.25mg/0.5ml Neb) 1.25 mg INH Q6R [facility] Stop: 10/01/19 06:59 Last Admin: 09/01/19 07:09 Dose: 1.25 mg Documented by: Losartan Potassium ([facility]ar) [facility] [place]: 10/01/19 01:59 Last Admin: 09/01/19 02:51 Dose: 100 mg Documented by: Miscellaneous (Carbohydrates For Hypoglycemia) 15 - 30 gm PO UD PRN PRN Reason: Hypoglycemia Protocol Stop: 10/01/19 01:20 Miscellaneous (Remove Nicoderm Patch) 1 ea N/A DAILY@59 [facility] Stop: 10/02/19 08:58 Morphine Sulfate (Morphine Sulfate) 4 mg IV Q4H PRN PRN Reason: Pain Stop: 09/15/19 01:20 Nicotine (Nicoderm Cq) 14 mg TD [facility] Stop: 10/01/19 01:59 Last Admin: 09/01/19 02:51 Dose: 14 mg Documented by: Oxycodone HCl (Roxicodone Immediate Rel) 5 mg PO Q4H PRN PRN Reason: Pain Stop: 09/15/19 01:20 Last Admin: 09/01/19 07:13 Dose: 5 mg Documented by: Pantoprazole Sodium (Protonix) [facility] [place] Stop: 10/01/19 08:59 Last Admin: 09/01/19 08:13 Dose: 40 mg Documented by: Prednisone (Prednisone) 20 mg PO DAILY [facility] Stop: 09/06/19 08:59
--- NOTE | 2019-09-01 12:49 | Electrocardiogram Report ---
Test Reason : Blood Pressure : / mmHG Vent. Rate : 086 BPM Atrial Rate : 086 BPM P-R Int : 164 ms QRS Dur : 088 ms QT Int : 386 ms P-R-T Axes : 066 048 059 degrees QTc Int : 461 ms Sinus rhythm with occasional Premature ventricular complexes Possible Left atrial enlargement Borderline ECG No previous ECGs available Confirmed by Elijah Bradshaw ([id number]) on 09/01/2019 12:49:11 PM Referred By: REFERRED SELF Confirmed By:Elijah Bradshaw
--- NOTE | 2019-09-01 15:31 | Cardiology Consultation ---
Date of Consultation September 01, 2019 Assessment & Plan (1) (HFpEF) heart failure with preserved ejection fraction: Patient with findings of grade 2 diastolic dysfunction on echocardiogram. Noted longstanding history of mild edema for which she is on furosemide on an as-needed basis, which is worsened with noted recent dietary indiscretion, increased salt intake. Her symptoms of shortness of breath, abdominal fullness, and lower extremity edema improved significantly after receiving furosemide last evening and again this am and diuresing 2 L. proBNP was relatively low at 1618 PG per mL's, but this can be falsely low in patients with obesity. Her troponin was minimally elevated x2 measurements at 0.047 and 0.049 ng/ml respectively. This is likely due to myocardial strain from her transient volume overload, however she does have significant underlying risk factors for coronary heart disease, and further evaluation for underlying ischemic is likely warranted either during this hospital stay or as an outpatient. History of Present Illness Attending Physician: Alton Hankins MD History of Present Illness Opal Blanchard is a 63 year old female seen in cardiology consultation per the request of Dr. Parsons for shortness of breath, edema, and mild elevation in troponin I. The patient denies any past cardiac history. She states that she has never seen a surgical dressing maker in the past on an inpatient or outpatient basis. She lives in [facility] , about [place] minutes away from [facility] per her description. She describes having been placed on furosemide 20 mg on an as- needed basis for edema about a year ago, but she does not take this every day. Recently within the last week she notes significant dietary indiscretion. She has had increased salt intake. Her who is at the bedside, says that she uses a significant amount of table salt, and likes to eat potato chips as well. For 4 to 5 days leading up to her hospitalization she noted worsening shortness of breath that was progressive as well as swelling in her legs and abdomen. She received furosemide 40 mg last evening in the emergency department at 2106. 2 L of urine output was subsequently recorded, and she feels markedly improved with subjective improvement in her abdominal bloating, and her and her state that her lower extremity swelling is significantly improved. She currently denies any chest discomfort or shortness of breath. She notes no recent chest discomfort or pressure, just the shortness of breath. Past Medical History: 1. Cigarette smoking, 1 pack of cigarettes or a little bit more than 1 pack of cigarettes per day 2. COPD 3. Hypertension 4. Obesity 5. Dyslipidemia 6. Obstructive sleep apnea, patient states that her CPAP machine has been b roken for about the last year Family History: Mother at the age of 74 of congestive heart failure having undergone coronary artery bypass grafting in her late 60s She does not know her biological father's past medical history 2 of her 3 brothers are treated for dyslipidemia and hypertension Social history: Cigarette smoker as noted above, lives with her spouse. Allergies Allergy/AdvReac Type Severity Reaction Status Date / Time propoxyphene AdvReac Mild Nausea Verified 08/31/19 20:29 [From Darfrederickt-N] Home Medications Home Medications Medication Instructions Recorded Confirmed Type aspirin 81 mg PO HS 08/31/19 08/31/19 History atorvastatin 40 mg PO HS 08/31/19 08/31/19 History dorzolamide-timolol 1 drp OPB [facility] 08/31/19 08/31/19 History fluoxetine 40 mg PO HS 08/31/19 08/31/19 History furosemide 20 mg PO DAILY PRN 08/31/19 08/31/19 History latanoprost 1 drp OPB HS 08/31/19 08/31/19 History losartan 50 mg PO QAM 08/31/19 08/31/19 History omeprazole 20 mg PO QAM 08/31/19 08/31/19 History potassium chloride 10 meq PO QAM 08/31/19 08/31/19 History Patient History Medical History (Updated 09/01/19 @ 15:27 by Petar Carrion DO) HTN (hypertension) Social History Preferred Language: Lebanese Communication Ability: Effective [place] Inspector Required: No Beliefs That Will Affect Care: None Current Living Situation: Significant Other Other Information That Helps Us Care for You: No Feels Safe at Home: Yes Safety Concerns: Feels Safe At This Time Smoking Status: Current every day smoker Tobacco Type: cigarettes ; Cigarettes Per Day: 20 ; Hx Alcohol Use: Yes Alcohol type: hard liquor Hx Substance Use: No Review of Systems Review of Systems: All systems reviewed & are unremarkable except as noted in HPI & below Physical Exam Physical Exam: Temp Pulse Resp BP Pulse Ox 36.9 C 80 18 127/77 91 09/01/19 11:40 09/01/19 13:25 09/01/19 13:25 09/01/19 11:40 09/01/19 13:25 Constitutional: WD/WN, vitals as above Respiratory: normal respiratory effort, lungs clear to auscultation Cardiovascular: RRR, no murmur, no edema Gastrointestinal (Abdomen): normal bowel sounds, soft, nontender, no hepatosplenomegaly Musculoskeletal: Extremities: strength 5/5 throughout; no clubbing Neurologic: PERRL, EOMI, accommodation nl, no face palsy, no dysarthria Results & Data Vital Signs (Past 12 Hours) Vital Signs Temp Pulse Pulse Resp BP BP Pulse Ox 09/01/19 13:25 80 18 91 09/01/19 11:40 36.9 C 71 18 127/77 90 09/01/19 07:34 36.3 C L 71 19 144/97 H 97 09/01/19 07:12 74 18 93 09/01/19 03:58 36.8 C 76 18 137/75 93 Laboratory Results Cardiac Enzymes 08/31/19 08/31/19 Range/Units 19:27 23:13 Troponin I 0.049 H* 0.047 H* (0-0.045) ng/ml Coagulation 08/31/19 Range/Units 19:27 PT 10.5 (9.0-12.0) Seconds APTT 27.2 (21.0-31.0) Seconds CBC 08/31/19 09/01/19 Range/Units 19:27 05:29 WBC 8.86 9.43 (4.8-10.8) K/uL RBC 4.19 L 4.53 (4.2-5.4) M/uL Hgb 13.7 14.8 (12.0-16.0) g/dL Hct 39.4 42.7 (37-47) % Plt Count 232 237 (130-400) K/uL Neut # (Auto) 6.28 8.55 H (1.4-6.5) K/uL Lymph # (Auto) 1.65 0.72 L (1.2-3.4) K/uL Jerome # (Auto) 0.59 0.11 (0.11-0.59) K/uL Eos # (Auto) 0.30 0.01 (0-0.5) K/uL Baso # (Auto) 0.03 0.01 (0-0.2) K/uL Comprehensive Metabolic Panel 08/31/19 09/01/19 Range/Units 19:27 05:29 Sodium 143 140 (136-145) mmol/L Potassium 3.1 L 3.5 (3.5-5.1) mmol/L Chloride 106 103 (98-107) mmol/L Carbon Dioxide 32 31 (21-32) mmol/L BUN 12 9 (7-18) mg/dl Creatinine 0.62 0.60 (0.6-1.2) mg/dl Glucose 111 H 164 H (70-99) mg/dl Calcium 9.1 9.0 (8.5-10.1) mg/dl Intake and Output 09/01/19 09/01/19 09/01/19 06:59 14:59 22:59 Intake Total 890 / 890 400 / 915 515 / 915 Output Total 2000 Balance 889 / -1111 400 / 915 515 / 915 Intake: IV 410 / 410 Vibramycin 100 mg In D5 100 ml 110 / 110 @ 50 mls/hr IV NOW STA Rx#: [id number] MAGNESIUM SULFATE / D5W 1 gm In 300 / 300 100 ml @ 100 mls/hr IV Q1H MONY Rx#:[id number] Oral 480 / 480 400 / 915 515 / 915 Output: # Bowel Movements Other: # Unmeasured Voids 2 Weight 114.8 kg Diagnostic Findings EKG performed 08/31/2019 reviewed independently today revealed sinus rhythm at 86 bpm with occasional PVCs, possible left atrial argument. Echocardiogram performed today and reviewed independently: Mild concentric left ventricular hypertrophy is present with normal left ventricular wall motion The qualitative left ventricular ejection fraction equals 55 to 60%, normal. Mild aortic valve sclerosis without aortic valve stenosis is present. Trace mitral regurgitation is present. Grade 2 diastolic dysfunction is present No prior studies available for comparison. Medications Administered Current Inpatient Medications Acetaminophen (Tylenol) 650 mg PO Q4H PRN PRN Reason: Pain or Fever Stop: 10/01/19 01:20 Aspirin (Ecotrin Ectab) 81 mg PO HS MONY Stop: 10/01/19 20:59 Atorvastatin Calcium (Lipitor) 40 mg PO HS [facility]Y Stop: 10/01/19 20:59 Dextrose (Dextrose 50%) 25 - 50 ml IV UD PRN; Protocol PRN Reason: Hypoglycemia Protocol Stop: 10/01/19 01:20 Dorzolamide/Timolol (Cosopt) 1 drops OPB BID [facility] Stop: 10/01/19 08:59 Last Admin: 09/01/19 08:13 Dose: 1 drops Documented by: Doxycycline Hyclate (Vibramycin) 100 mg PO BID [facility] Stop: 09/08/19 08:59 Last Admin: 09/01/19 08:12 Dose: 100 mg Documented by: Enoxaparin Sodium (Lovenox) 40 mg SQ QAM [facility] Stop: 10/01/19 08:59 Last Admin: 09/01/19 08:13 Dose: 40 mg Documented by: Fluoxetine HCl (Prozac) 40 mg PO HS [facility] Stop: 10/01/19 20:59 Glucagon (Glucagen) 1 mg SQ UD PRN; Protocol PRN Reason: Hypoglycemia Protocol Stop: 10/01/19 01:20 Glucose (Dex4 Glucose) 4 - 8 tabs PO UD PRN; Protocol PRN Reason: Hypoglycemia Protocol Stop: 10/01/19 01:20 Glucose (Glucose 40%) 15 - 30 gm PO UD PRN; Protocol PRN Reason: Hypoglycemia Protocol Stop: 10/01/19 01:20 Promethazine HCl 12.5 mg/ (Sodium Chloride) 50.5 mls @ 202 mls/hr IV Q6H PRN PRN Reason: Nausea And Vomiting Stop: 10/01/19 01:20 Insulin Aspart (Novolog Flexpen) 0 units SC ACHS [facility] Stop: 10/01/19 01:20 Last Admin: 09/01/19 12:19 Dose: 3 units Documented by: Insulin Glargine (Lantus Solostar Pen) 5 units SQ HS [facility] Stop: 10/01/19 20:59 Ipratropium [place] (Atrovent 0.02% 0.5mg/2.5ml) 0.5 mg INH Q6R [facility] Stop: 10/01/19 06:59 Last Admin: 09/01/19 13:24 Dose: 0.5 mg Documented by: Latanoprost (Xalatan Oph) 1 drops OPB HS [facility] Stop: 10/01/19 20:59 Levalbuterol HCl (Xopenex 1.25mg/0.5ml Neb) 1.25 mg INH Q6R [facility] Stop: 10/01/19 06:59 Last Admin: 09/01/19 13:24 Dose: 1.25 mg Documented by: Losartan Potassium (Cozaar) 100 mg PO [facility] Stop: 10/01/19 01:59 Last Admin: 09/01/19 02:51 Dose: 100 mg Documented by: Miscellaneous (Carbohydrates For Hypoglycemia) 15 - 30 gm PO UD PRN PRN Reason: Hypoglycemia Protocol Stop: 10/01/19 01:20 Miscellaneous (Remove Nicoderm Patch) 1 ea N/A DAILY@0859 [facility] Stop: 10/02/19 08:58 Morphine Sulfate (Morphine Sulfate) 4 mg IV Q4H PRN PRN Reason: Pain Stop: 09/15/19 01:20 Nicotine (Nicoderm Cq) 14 mg TD [facility] Stop: 10/01/19 01:59 Last Admin: 09/01/19 02:51 Dose: 14 mg Documented by: Oxycodone HCl (Roxicodone Immediate Rel) 5 mg PO Q4H PRN PRN Reason: Pain Stop: 09/15/19 01:20 Last Admin: 09/01/19 07:13 Dose: 5 mg Documented by: Pantoprazole Sodium (Protonix) 40 mg PO [facility] Stop: 10/01/19 08:59 Last Admin: 09/01/19 08:13 Dose: 40 mg Documented by: Prednisone (Prednisone) 20 mg PO DAILY [facility] Stop: 09/06/19 08:59
[2019-09-01] MEDS ORDERED: FLUOXETINE HCL 20 MG CAP PO SCH (21:00)
[2019-09-01] MEDS ORDERED: INSULIN GLARGINE SOLOSTAR 100 UNITS/ML 3 ML PEN SQ SCH (21:00)
[2019-09-01] MEDS ORDERED: ASPIRIN 81 MG ECTAB PO SCH (21:00)
[2019-09-01] MEDS ORDERED: ATORVASTATIN 40 MG TAB PO SCH (21:00)
[2019-09-01] MEDS ORDERED: LATANOPROST 0.005% OP SOLN 2.5 ML BTL OPB SCH (21:00)
[2019-09-02] MEDS: LEVALBUTEROL 1.25MG/0.5ML NEB INH SCH ×3 (00:35→13:44)
[2019-09-02] MEDS: IPRATROPIUM BROMIDE NEB SOLN 0.02% 2.5 ML VIAL INH SCH ×3 (00:35→13:44)
[2019-09-02 06:22] LABS: Hematocrit (blood only) 43.3 % (37-47); Hemoglobin 14.7 g/dL (12.0-16.0); Mean Corpuscular Hemoglobin 32.5 pg (25-34); Mean Corpuscular Hgb Conc 33.9 g/dL (32-36); Mean Corpuscular Volume 95.8 fL (80-100); Mean Platelet Volume 11.2 fL (7.4-10.4); Platelet Count 245 K/uL (130-400); RDW Standard Deviation 44.6 fL (36.4-46.3); Red Blood Count 4.52 M/uL (4.2-5.4); White Blood Count 10.71 K/uL (4.8-10.8)
[2019-09-02 06:57] LABS: BUN Creatinine Ratio 22.5 (10-20); Calcium 9.4 mg/dl (8.5-10.1); Creatinine Clr Calc Pharmacy 113.3 ml/min; Est GFR (African American) 110.1; Magnesium 1.9 mg/dl (1.8-2.4); Potassium 3.1 mmol/L (3.5-5.1)
[2019-09-02] MEDS ORDERED: POTASSIUM CHLORIDE 20 MEQ TABCR PO STA ×2 (07:05→11:04)
--- NOTE | 2019-09-02 07:11 | Hospitalist Progress Note ---
Date of Service September 02, 2019 Assessment & Plan (1) Acute hypoxemic respiratory failure: Secondary to HFpEF vs. COPD exacerbation/complicated bronchitis -Patient received treatment, IV Lasix 40 mg and responded well, her swelling has resolved overnight and she is no longer in respiratory distress however was still using supplemental oxygen yesterday -Clinically much improved, currently on room air, swelling resolved -Transient chest pain on admission, troponin elevation secondary to above (chest pain has resolved) Echocardiogram shows LV EF 55 to 60%, mild concentric LVH, LV wall motion is normal, diastolic dysfunction, grade 2 Cardiology consulted - due to findings of diastolic dysfunction, and mild troponin elevation, and given significant underlying risk factors for coronary heart disease, further evaluation for underlying ischemic disease is likely warranted. Medication recommendations: Recommend discharge on furosemide 40 mg every day instead of PRN. Spironolactone 12.5 mg p.o. daily. Continue prior to hospital doses of aspirin, atorvastatin, losartan 50 mg daily, potassium chloride 10 mEq daily. Plan for outpatient cardiology follow-up in 2 to 4 weeks for clinic visit, and would also recommend a combined low intensity exercise/pharmacologic nuclear stress test to be performed at [facility] within 2-4 weeks to allow further optimization of her blood pressure with the current medication changes. COPD exacerbation -Patient also received breathing treatments, steroids and doxycycline for COPD exacerbation/complicated bronchitis - plan to discharge on doxycycline and prednisone SHAN - CPAP noncompliance, the last 2 years secondary to poor fitting mask as per patient -Patient says that she is in the process of having the CPAP issue resolved Hypertension, elevated secondary to illness -BP now much improved Hypokalemia, hypomagnesemia -Secondary to diuresis -Replete and monitor Ongoing tobacco abuse -Currently determined to quit smoking, and using nicotine patch -I counseled the patient on smoking cessation, and also provided 1 800 quit now smoking cessation line number Anxiety/mood disorder at baseline Hyperglycemia -Most likely secondary to steroid use -hemoglobin A1c 5.5% -basal insulin, ISS BG goal [id number] DVT prophylaxis: Lovenox subcu Full code Subjective Patient sitting up in bed, on room air, comfortable. Denies any chest pain, palpitations, increased shortness of breath. Says her swelling is much improved, there is no more swelling in her lower extremities or hands. Patient seems to be determined to get her CPAP machine in order, and also determined to quit smoking. Review of Systems Review of Systems: All systems reviewed & are unremarkable except as noted in HPI & below Constitutional: no fever and no chills Respiratory: no cough, no dyspnea and no pain on inspiration Cardiovascular: no chest pain, no dyspnea on exertion, no palpitations and no edema Gastrointestinal: no abdominal pain, no nausea and no vomiting Physical Exam Physical Exam: GENERAL: obese female, pleasant, in no acute distress, on room air HEENT: Normocephalic, atraumatic, EOMI, PERRL, moist buccal mucosa NECK : Supple, short neck, no tenderness CHEST : Normal respiratory effort, lungs mostly clear to auscultation, with mild bibasilar crackles HEART : RRR, no obvious murmurs ABDOMEN: +bowel sounds, soft, some distention, nontender EXTREMITIES : no LE swelling b/l (much improved), no LE tenderness, moves all 4 extremities spontaneously SKIN: Normal color, warm NEUROLOGIC : Alert and oriented x3, no facial asymmetry, speech fluent, moves all 4 extremities spontaneously Results & Data Vital Signs (Past 12 Hours) Vital Signs Temp Pulse Resp BP Pulse Ox 09/02/19 07:00 78 18 90 09/02/19 04:12 36.3 C L 71 20 136/81 95 09/02/19 00:36 83 16 91 09/01/19 23:33 36.8 C 77 18 145/89 H 94 09/01/19 19:22 83 20 90 Laboratory Results 09/02/19 09/02/19 09/01/19 Range/Units 05:42 05:42 19:58 WBC 10.71 (4.8-10.8) K/uL RBC 4.52 (4.2-5.4) M/uL Hgb 14.7 (12.0-16.0) g/dL Hct 43.3 (37-47) % MCV 95.8 (80-100) fL MCH 32.5 (25-34) pg MCHC 33.9 (32-36) g/dL RDW Std Deviation 44.6 (36.4-46.3) fL RDW Coeff of Genaro 13.0 (11.5-14.5) % Plt Count 245 (130-400) K/uL MPV 11.2 H (7.4-10.4) fL Sodium 141 (136-145) mmol/L Potassium 3.1 L (3.5-5.1) mmol/L Chloride 105 (98-107) mmol/L Carbon Dioxide 33 H (21-32) mmol/L Anion Gap 4.0 (3-11) BUN 15 D (7-18) mg/dl Creatinine 0.64 (0.6-1.2) mg/dl Est Cr Clr Drug Dosing 113.3 ml/min Est GFR ( Amer) 110.1 Est GFR (Non-Af Amer) 95.0 BUN/Creatinine Ratio 22.5 H (10-20) Glucose 103 H (70-99) mg/dl POC Glucose 123 H (70-99) Estimat Average Glucose mg/dl Hemoglobin A1c (4.5-5.6) % Calcium 9.4 (8.5-10.1) mg/dl Magnesium 1.9 (1.8-2.4) mg/dl 09/01/19 09/01/19 09/01/19 Range/Units 16:13 11:23 07:17 WBC (4.8-10.8) K/uL RBC (4.2-5.4) M/uL Hgb (12.0-16.0) g/dL Hct (37-47) % MCV (80-100) fL MCH (25-34) pg MCHC (32-36) g/dL RDW Std Deviation (36.4-46.3) fL RDW Coeff of Genaro (11.5-14.5) % Plt Count (130-400) K/uL MPV (7.4-10.4) fL Sodium (136-145) mmol/L Potassium (3.5-5.1) mmol/L Chloride (98-107) mmol/L Carbon Dioxide (21-32) mmol/L Anion Gap (3-11) BUN (7-18) mg/dl Creatinine (0.6-1.2) mg/dl Est Cr Clr Drug Dosing ml/min Est GFR ( Amer) Est GFR (Non-Af Amer) BUN/Creatinine Ratio (10-20) Glucose (70-99) mg/dl POC Glucose 104 H 147 H 154 H (70-99) Estimat Average Glucose mg/dl Hemoglobin A1c (4.5-5.6) % Calcium (8.5-10.1) mg/dl Magnesium (1.8-2.4) mg/dl 08/31/19 Range/Units 19:27 WBC (4.8-10.8) K/uL RBC (4.2-5.4) M/uL Hgb (12.0-16.0) g/dL Hct (37-47) % MCV (80-100) fL MCH (25-34) pg MCHC (32-36) g/dL RDW Std Deviation (36.4-46.3) fL RDW Coeff of Genaro (11.5-14.5) % Plt Count (130-400) K/uL MPV (7.4-10.4) fL Sodium (136-145) mmol/L Potassium (3.5-5.1) mmol/L Chloride (98-107) mmol/L Carbon Dioxide (21-32) mmol/L Anion Gap (3-11) BUN (7-18) mg/dl Creatinine (0.6-1.2) mg/dl Est Cr Clr Drug Dosing ml/min Est GFR ( Amer) Est GFR (Non-Af Amer) BUN/Creatinine Ratio (10-20) Glucose (70-99) mg/dl POC Glucose (70-99) Estimat Average Glucose 111 mg/dl Hemoglobin A1c 5.5 (4.5-5.6) % Calcium (8.5-10.1) mg/dl Magnesium (1.8-2.4) mg/dl Medications Administered Current Inpatient Medications Acetaminophen (Tylenol) 650 mg PO Q4H PRN PRN Reason: Pain or Fever Stop: 10/01/19 01:20 Aspirin (Ecotrin Ectab) 81 mg PO HS [facility] Stop: 10/01/19 20:59 Last Admin: 09/01/19 19:59 Dose: 81 mg Documented by: Atorvastatin Calcium (Lipitor) 40 mg PO HS [facility] Stop: 10/01/19 20:59 Last Admin: 09/01/19 19:58 Dose: 40 mg Documented by: Dextrose (Dextrose 50%) 25 - 50 ml IV UD PRN; Protocol PRN Reason: Hypoglycemia Protocol Stop: 10/01/19 01:20 Dorzolamide/Timolol (Cosopt) 1 drops OPB BID [facility] Stop: 10/01/19 08:59 Last Admin: 09/01/19 19:57 Dose: 1 drops Documented by: Doxycycline Hyclate (Vibramycin) 100 mg PO BID [facility] Stop: 09/08/19 08:59 Last Admin: 09/01/19 19:59 Dose: 100 mg Documented by: Enoxaparin Sodium (Lovenox) 40 mg SQ QAM [facility] Stop: 10/01/19 08:59 Last Admin: 09/01/19 08:13 Dose: 40 mg Documented by: Fluoxetine HCl (Prozac) 40 mg PO HS [facility] Stop: 10/01/19 20:59 Last Admin: 09/01/19 19:59 Dose: 40 mg Documented by: Glucagon (Glucagen) 1 mg SQ UD PRN; Protocol PRN Reason: Hypoglycemia Protocol Stop: 10/01/19 01:20 Glucose (Dex4 Glucose) 4 - 8 tabs PO UD PRN; Protocol PRN Reason: Hypoglycemia Protocol Stop: 10/01/19 01:20 Glucose (Glucose 40%) 15 - 30 gm PO UD PRN; Protocol PRN Reason: Hypoglycemia Protocol Stop: 10/01/19 01:20 Promethazine HCl 12.5 mg/ (Sodium Chloride) 50.5 mls @ 202 mls/hr IV Q6H PRN PRN Reason: Nausea And Vomiting Stop: 10/01/19 01:20 Furosemide 40 mg/ Syringe 4 mls @ 4 mls/min IV DAILY [facility] Stop: 10/02/19 08:59 Insulin Aspart (Novolog Flexpen) 0 units SC ACHS [facility] Stop: 10/01/19 01:20 Last Admin: 09/01/19 20:01 Dose: Not Given Documented by: Insulin Glargine (Lantus Solostar Pen) 5 units SQ HS [facility] Stop: 10/01/19 20:59 Last Admin: 09/01/19 20:01 Dose: 5 units Documented by: Ipratropium [place] (Atrovent 0.02% 0.5mg/2.5ml) 0.5 mg INH Q6R [facility] Stop: 10/01/19 06:59 Last Admin: 09/02/19 06:57 Dose: 0.5 mg Documented by: Latanoprost (Xalatan Oph) 1 drops OPB HS [facility] Stop: 10/01/19 20:59 Last Admin: 09/01/19 19:57 Dose: 1 drops Documented by: Levalbuterol HCl (Xopenex 1.25mg/0.5ml Neb) 1.25 mg INH Q6R [facility] Stop: 10/01/19 06:59 Last Admin: 09/02/19 06:57 Dose: 1.25 mg Documented by: Losartan Potassium (Cozaar) 100 mg PO QAM [facility] Stop: 10/01/19 01:59 Last Admin: 09/01/19 02:51 Dose: 100 mg Documented by: Miscellaneous (Carbohydrates For Hypoglycemia) 15 - 30 gm PO UD PRN PRN Reason: Hypoglycemia Protocol Stop: 10/01/19 01:20 Miscellaneous (Remove Nicoderm Patch) 1 ea N/A DAILY@0859 [facility] Stop: 10/02/19 08:58 Morphine Sulfate (Morphine Sulfate) 4 mg IV Q4H PRN PRN Reason: Pain Stop: 09/15/19 01:20 Nicotine (Nicoderm Cq) [facility] Stop: 10/01/19 01:59 Last Admin: 09/01/19 02:51 Dose: 14 mg Documented by: Oxycodone HCl (Roxicodone Immediate Rel) 5 mg PO Q4H PRN PRN Reason: Pain Stop: 09/15/19 01:20 Last Admin: 09/01/19 20:07 Dose: 5 mg Documented by: Pantoprazole Sodium (Protonix) 40 [facility] Stop: 10/01/19 08:59 Last Admin: 09/01/19 08:13 Dose: 40 mg Documented by: Prednisone (Prednisone) 20 mg PO DAILY [facility] Stop: 09/06/19 08:59
[2019-09-02] MEDS: NICOTINE 14 MG/24 HR PATCH TD SCH (07:48)
[2019-09-02] MEDS: DORZOLAMIDE/TIMOLOL 22.3/6.8MG/ML 10 ML BTL OPB SCH (07:49)
[2019-09-02] MEDS: PANTOprazole 40 MG TAB PO SCH (07:50)
[2019-09-02] MEDS: ENOXAPARIN INJ 40 MG/0.4 ML SYR SQ SCH (07:50)
[2019-09-02] MEDS: LOSARTAN POTASSIUM 50 MG TAB PO SCH (07:51)
[2019-09-02] MEDS: DOXYCYCLINE HYCLATE 100 MG CAP PO SCH (07:52)
[2019-09-02] MEDS: INSULIN ASPART 100 UNITS/ML 3 ML PEN SC SCH ×2 (07:53→11:53)
[2019-09-02] MEDS ORDERED: FUROSEMIDE 40 MG in SYRINGE 0 ML IV SCH (09:00)
[2019-09-02] MEDS ORDERED: predniSONE 20 MG TAB PO SCH (09:00)
[2019-09-02] MEDS: OXYCODONE HCL IR 5 MG TAB (IMMEDIATE RELEASE) PO PRN (11:51)
--- NOTE | 2019-09-02 11:56 | Cardiology Progress Note ---
Date of Service September 02, 2019 Assessment & Plan (1) (HFpEF) heart failure with preserved ejection fraction: Patient with hypertension, history of obstructive sleep apnea, not treated as her CPAP machine has been broken for about 1 year. She presented with progressive shortness of breath and volume overload in the setting of aggressive dietary indiscretion, with high salt intake. Fine status and subjective symptoms are improved. Blood pressure has still been borderline high. Recommend repeating her potassium level, and if it is stable, she may be discharged from a cardiac perspective. Medication recommendations: Recommend discharge on furosemide 40 mg every day instead of PRN. Spironolactone 12.5 mg p.o. daily. Continue prior to hospital doses of aspirin, atorvastatin, losartan 50 mg daily, potassium chloride 10 mEq daily. Plan for outpatient cardiology follow-up in 2 to 4 weeks for clinic visit, and would also recommend a combined low intensity exercise/pharmacologic nuclear stress test to be performed at [facility] within 2-4 weeks to allow further optimization of her blood pressure with the current medication changes. Complete course of doxycycline as planned. I would recommend follow-up with PCP. Subjective Patient feeling subjectively improved. She states her breathing and her edema is significantly improved compared to presentation. She still notes a slight cough. Potassium was low this morning at 3.1 and she has received potassium supplementation orally x2 doses this morning for a total of 80 mEq. Telemetry reveals stable sinus rhythm in the 70 bpm range. EKG this morning reveals normal sinus rhythm, normal EKG. Review of Systems Review of Systems: All systems reviewed & are unremarkable except as noted in HPI & below Physical Exam Physical Exam: Temp Pulse Resp BP Pulse Ox 36.8 C 74 18 154/96 H 91 09/02/19 11:33 09/02/19 11:33 09/02/19 11:33 09/02/19 11:33 09/02/19 11:33 Constitutional: WD/WN, vitals as above Respiratory: normal respiratory effort, lungs clear to auscultation Cardiovascular: RRR, no murmur, no edema Gastrointestinal (Abdomen): normal bowel sounds, soft, nontender, no hepatosplenomegaly Skin: no rashes, warm and dry Neurologic: PERRL, EOMI, accommodation nl, no face palsy, no dysarthria Results & Data Vital Signs (Past 12 Hours) Vital Signs Temp Pulse Resp BP BP Pulse Ox 09/02/19 11:33 36.8 C 74 18 154/96 H 91 09/02/19 07:48 36.7 C 73 19 159/84 H 90 09/02/19 07:00 78 18 90 09/02/19 04:12 36.3 C L 71 20 136/81 95 09/02/19 00:36 83 16 91 Laboratory Results CBC 09/02/19 Range/Units 05:42 WBC 10.71 (4.8-10.8) K/uL RBC 4.52 (4.2-5.4) M/uL Hgb 14.7 (12.0-16.0) g/dL Hct 43.3 (37-47) % Plt Count 245 (130-400) K/uL Comprehensive Metabolic Panel 09/02/19 Range/Units 05:42 Sodium 141 (136-145) mmol/L Potassium 3.1 L (3.5-5.1) mmol/L Chloride 105 (98-107) mmol/L Carbon Dioxide 33 H (21-32) mmol/L BUN 15 D (7-18) mg/dl Creatinine 0.64 (0.6-1.2) mg/dl Glucose 103 H (70-99) mg/dl Calcium 9.4 (8.5-10.1) mg/dl Intake and Output 09/01/19 09/02/19 09/02/19 22:59 06:59 14:59 Intake Total 1155 / 1755 200 / 1755 Output Total 200 / 200 Balance 1155 / 1555 0 / 1555 Intake: Oral 1155 / 1755 200 / 1755 Output: Urine 200 / 200 Other: Weight 113.9 kg
[2019-09-02] MEDS ORDERED: SPIRONOLACTONE 25 MG TAB PO SCH (12:00)
--- NOTE | 2019-09-02 13:08 | Electrocardiogram Report ---
Test Reason : Blood Pressure : / mmHG Vent. Rate : 074 BPM Atrial Rate : 074 BPM P-R Int : 176 ms QRS Dur : 094 ms QT Int : 410 ms P-R-T Axes : 072 041 047 degrees QTc Int : 455 ms Normal sinus rhythm Normal ECG When compared with ECG of 31-AUG-2019 19:11, Premature ventricular complexes are no longer Present Confirmed by Elijah Bradshaw ([id number]) on 09/02/2019 1:08:44 PM Referred By: REFERRED SELF Confirmed By:Elijah Bradshaw
--- NOTE | 2019-09-02 14:08 | Discharge Summary ---
Date of Service September 02, 2019 Admission HPI Per Admitting Provider History obtained from patient, family, and records. Medical history significant for hypertension, COPD, ongoing tobacco abuse, anxiety/mood disorder, chronic back pain, past alcohol abuse as per records, SHAN (currently CPAP noncompliance). 2 weeks history of junky cough symptoms with shortness of breath. No fever, no chills. Possible sick contacts. No aspiration although patient admits to occasional swallowing problem issues. Transient squeezing substernal discomfort today associated with some fluid retention, possible weight gain in the last few days as per patient. At the ER, patient noted to be hypoxemic. Patient received Lasix for possible CHF. 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 Admission Exam Per Admitting Provider GENERAL: Comfortable, obese, pleasant, slightly anxious, no respiratory distress SKIN: Normal color, warm HEENT: [place] palpebral conjunctivae, no ptosis, moist buccal mucosa, nasal cannula in place NECK : Supple, short neck, no tenderness CHEST : Decreased breath sounds, occasional expiratory wheezes, no tenderness HEART : RRR, no obvious murmurs ABDOMEN: Some distention, nontender EXTREMITIES : Minimal LE swelling, no LE tenderness, no other conspicuous deformities noted NEUROLOGIC : Coherent, no facial asymmetry, no other gross focality Principal Diagnosis Acute hypoxemic respiratory failure secondary to heart failure with preserved ejection fraction, COPD exacerbation, SHAN Discharge Exam GENERAL: obese female, pleasant, in no acute distress, on room air HEENT: Normocephalic, atraumatic, EOMI, PERRL, moist buccal mucosa NECK : Supple, short neck, no tenderness CHEST : Normal respiratory effort, lungs mostly clear to auscultation, with mild bibasilar crackles HEART : RRR, no obvious murmurs ABDOMEN: +bowel sounds, soft, some distention, nontender EXTREMITIES : no LE swelling b/l (much improved), no LE tenderness, moves all 4 extremities spontaneously SKIN: Normal color, warm NEUROLOGIC : Alert and oriented x3, no facial asymmetry, speech fluent, moves all 4 extremities spontaneously Discharge Data Allergies Allergy/AdvReac Type Severity Reaction Status Date / Time propoxyphene AdvReac Mild Nausea Verified 08/31/19 20:29 [From [facility]] Consultations 08/31/19 21:10 ED Decision to Admit Stat 09/01/19 01:21 Consult Cardiology Routine Ordered Studies 08/31/19 20:15 CT angio chest PE protocol Stat 09/01/19 23:57 US abdomen ltd ascites Urgent US venous doppler LE Urgent Hospital Course (1) Acute hypoxemic respiratory failure: Secondary to HFpEF vs. COPD exacerbation/complicated bronchitis -Patient received treatment, IV Lasix 40 mg and responded well, her swelling has resolved overnight and she is no longer in respiratory distress however was still using supplemental oxygen yesterday - law salt diet, fluid restricted diet - I/Os, daily standing weight -Clinically much improved, currently on room air, swelling resolved -Transient chest pain on admission, troponin elevation secondary to above (chest pain has resolved) Echocardiogram shows LV EF 55 to 60%, mild concentric LVH, LV wall motion is normal, diastolic dysfunction, grade 2 Cardiology consulted - due to findings of diastolic dysfunction, and mild troponin elevation, and given significant underlying risk factors for coronary heart disease, further evaluation for underlying ischemic disease is likely warranted. Medication recommendations: Recommend discharge on furosemide 40 mg every day instead of PRN. Spironolactone 12.5 mg p.o. daily. Continue prior to hospital doses of aspirin, atorvastatin, losartan 50 mg daily, potassium chloride 10 mEq daily. Plan for outpatient cardiology follow-up in 2 to 4 weeks for clinic visit, and would also recommend a combined low intensity exercise/pharmacologic nuclear stress test to be performed at [facility] within 2-4 weeks to allow further optimization of her blood pressure with the current medication changes. COPD exacerbation -Patient also received breathing treatments, steroids and doxycycline for COPD exacerbation/complicated bronchitis - plan to discharge on doxycycline and prednisone SHAN - CPAP noncompliance, the last 2 years secondary to poor fitting mask as per patient -Patient says that she is in the process of having the CPAP issue resolved Hypertension, elevated secondary to illness -BP now much improved Hypokalemia, hypomagnesemia -Secondary to diuresis -Replete and monitor Ongoing tobacco abuse -Currently determined to quit smoking, and using nicotine patch -I counseled the patient on smoking cessation, and also provided 1 800 quit now smoking cessation line number Anxiety/mood disorder at baseline Hyperglycemia -Most likely secondary to steroid use -hemoglobin A1c 5.5% -basal insulin, ISS BG goal [id number] Total Time Total Time Spent Total Time Spent (In Minutes): 50 Total Time Includes: Examination of the Patient, Discharge Planning, Medication Reconciliation and Communication With Other Providers Discharge Plan Discharge Items Patient Disposition: Home - Self-Care Reason For Visit: RESP FAILURE Discharge Diagnosis: Acute hypoxemic respiratory failure secondary to heart failure with preserved ejection fraction, COPD exacerbation, obstructive sleep apnea Activity: Resume your previous activity Activity Comment: as tolerated, pace yourself, ask for help as needed Non-emergency contact: Primary Care Provider and Syruper Call non-emergency contact if: you have any medication questions and your symptoms worsen Follow-up/Referrals: Sara Goode MD [Primary Care Provider] - Diet: Low Sodium (2gm) Fluids: 1800ml (7 cups) Addtl Attending Provider Instructions: Make sure to follow up with your primary care doctor within 1 week. You will also need to follow up with a glass handler, and have further testing done. Their office will contact you about that. Make sure to follow up on your Obstructive sleep apnea and CPAP machine. It is crucial that you utilize the machine as recommended. Continue taking antibiotic (doxycycline) and prednisone for next 4 days. Start taking furosemide 40 mg daily and spironolactone 12.5 mg daily. Please read the instruction below in detail: Call your Primary Care doctor if any of the following symptoms or problems start or get worse: * Shortness of breath or difficulty breathing * Wake up at night short of breath * Chest pain * Cough * Swelling of your hands, feet, or legs * More fatigued or tired with your normal activity * Palpitations - sudden fast heart beats WEIGHT * Weigh yourself every morning after using the bathroom. * Use the same scale. * Wear the same amount of clothing. * Write your weight down on a chart. * Call your Primary Care doctor if you gain more than 2-3 pounds in 1-2 days. MEDICATIONS * Use this discharge instruction sheet for medication instructions. * Take your medications at the time your doctor ordered. * Do not skip a dose of your medicines. * If you miss a dose of medicine, take it as soon as possible, but DO NOT DOUBLE A DOSE. * Read your medicine information when you get home. * Know all of the side effects of your medicine. If in doubt, ask your pharmacist * Call your Primary Care doctor's office if you have any side effects. * Be sure all of your doctors know what medicine and herbs you take (including cold, flu, and herbal medicine). Take the following with you to your follow-up doctor appointments: * Weight Chart * Medication List * List of questions Do not drink excessive alcohol, beer or wine. Pending Studies at Discharge: No Stand-Alone Forms: My [facility], Smoking Cessation Medications and DC Order Prescriptions: New doxycycline hyclate 100 mg Capsule 100 mg PO BID 4 Days Qty: 8 RF: 0 losartan 50 mg Tablet 100 mg PO QAM 30 Days Qty: 60 RF: 0 spironolactone 25 mg Tablet 12.5 mg PO DAILY 30 Days Qty: 15 RF: 0 aspirin [Ecotrin Low Strength] 81 mg Tablet,Delayed Release (Dr/Ec) 81 mg PO HS 30 Days Qty: 30 RF: 0 prednisone 20 mg Tablet 20 mg PO DAILY 4 Days Qty: 4 RF: 0 furosemide 40 mg tablet 40 mg PO DAILY 30 Days Qty: 30 RF: 0 Continued fluoxetine 40 mg Capsule 40 mg PO HS RF: 0 latanoprost 0.005 % Drops 1 drp OPB HS RF: 0 atorvastatin 40 mg Tablet 40 mg PO HS RF: 0 potassium chloride 10 mEq Tablet Extended Release 10 meq PO QAM RF: 0 omeprazole 20 mg Capsule,Delayed Release(Dr/Ec) 20 mg PO QAM RF: 0 dorzolamide-timolol 22.3-6.8 mg/mL Drops 1 drp OPB AMHS RF: 0 Discontinued losartan 50 mg Tablet 50 mg PO QAM RF: 0 aspirin 81 mg Tablet,Delayed Release (Dr/Ec) 81 mg PO HS RF: 0 furosemide 20 mg Tablet 20 mg PO DAILY PRN (Reason: Fluid Retention) RF: 0 Discharge Orders: Discharge Order (Routine); Ordered 09/02/19 Ordered By: Alton Hankins Admission Data Admit Date/Time: 08/31/19 23:59 Attending Provider: Alton Hankins Admit Provider: Jake Khan Primary Care Provider: Sara Goode Other Providers: Jake Khan ; Rob Alcantara Other Interventions: Discharge Summary Assessment (RN) Last Done: 09/02/19 14:12 DC Date/Time DO NOT enter until pt leaves facility: 09/02/19 14:51
== END 2019-09-02 14:51 | disposition home or self-care (01) | DRG 189 ==
LOC: ED 18:52 → 2S 23:59

== ENCOUNTER 2024-02-03 09:02 | Inpatient (IN) ==
--- NOTE | 2024-01-18 11:17 | Anesthesiology Consultation ---
Date of Service January 18, 2024 Assessment & Plan (1) Encounter for pre-operative examination: Chart Review Chart Review: Acceptable Risk for Surgery (pending surgeon ordered PCP and cardio clearances ) and Patient NOT seen in Pre Admission Testing - Awaiting PCP and cardio clearances (surgeon's office setting up/obtaining) ([facility] providers) -Infectious Disease screening: Per PAT nursing assessment on 01/18/24. No known infectious disease contacts in past 10 days or current infectious disease symptoms. No recent travel outside the country. History Surgery Operation Date: 02/03/24 10:05 Proposed Procedures p T11-L4 Decompression and Fusion, L4-L5 Hardware Removal, Spinal Cord Monitoring - Herbert Delarosa, Height/Weight Height: 5 ft 3 in Weight: 115.666 kg Allergies Allergy/AdvReac Type Severity Reaction Status Date / Time propoxyphene AdvReac Mild Nausea Verified 01/02/21 11:38 [[facility] Medications Home Medications Medication Instructions Recorded Confirmed Last Taken atorvastatin 40 mg tablet 40 mg PO HS 08/31/19 01/18/24 08/30/19 omeprazole 20 mg capsule,delayed 20 mg PO QAM 08/31/19 01/18/24 01/02/21 08:00 release potassium chloride 10 mEq 10 meq PO QAM 08/31/19 01/18/24 01/01/21 tablet,extended release acetaminophen 650 mg 650 mg PO HS PRN Pain 12/26/20 01/18/24 01/01/21 20:30 tablet,extended release (Tylenol Arthritis Pain) albuterol sulfate 90 mcg/actuation 2 inh inhalation QID PRN sob 12/26/2001/1712/04/19 aerosol inhaler (Ventolin HFA) furosemide 40 mg tablet 40 mg PO QAM 12/26/20 01/18/24 01/01/21 multivitamin 1 tab PO QAM 12/26/20 01/18/24 Unknown spironolactone 25 mg tablet 25 mg PO QAM 12/26/20 01/18/24 01/01/21 valsartan 80 mg tablet 80 mg PO QAM 12/26/20 01/18/24 01/02/21 08:00 bupropion HCl 150 mg 24 hr tablet, 150 mg PO QAM 01/18/24 01/18/24 Unknown extended release (Wellbutrin XL) diclofenac sodium 75 mg 75 mg PO BID 01/18/24 01/18/24 Unknown tablet,delayed release duloxetine 30 mg capsule,delayed 90 mg PO HS 01/18/24 01/18/24 Unknown release duloxetine 60 mg capsule,delayed 60 mg PO QAM 01/18/24 01/18/24 Unknown release furosemide 40 mg tablet 40 mg PO QPM PRN Edema 01/18/24 01/18/24 Unknown lorazepam 0.5 mg tablet 0.5 mg PO DAILY PRN Anxiety 01/18/24 01/18/24 Unknown Past Medical History Medical History (Updated 01/18/24 @ 11:27 by Yasmine Hassan PA-C) Anxiety Chronic back pain Chronic obstructive pulmonary disease Congestive heart failure (2019) hx- with preserved EF - follows with Dr Carrion. EF 55-59% per 09/2023 ECHO Degenerative disc disease Depression GERD (gastroesophageal reflux disease) History of COVID-19 (2021) no hosp; resolved History of diverticulosis HTN (hypertension) Hx of squamous cell carcinoma Hyperlipidemia Osteoarthritis Sleep apnea CPAP Stress incontinence Past Family History Family History Other No family history of adverse response to anesthesia Past Surgical History Surgical History History of bilateral tubal ligation History of breast biopsy benign left breast History of cataract surgery bilateral History of colonoscopy History of esophagogastroduodenoscopy (EGD) S/P lumbar spinal fusion (~1996) L4/L5 Social History Smoking Status: Current every day smoker tobacco type: cigarettes Smoking cigarettes per day: 20 per day-advised Do You Dip or Chew Tobacco: No Hx Alcohol Use: Yes Alcohol type: hard liquor alcohol intake frequency: holidays/special occasions only Hx Substance Use: No substance use type: does not use Lab Results Anesthesia Preop Results Results Anesthesia Widget: WBC 9.21 K/ul (4.8-10.8) 01/13/24 Hgb 15.4 g/dl (12.0-16.0) 01/13/24 Hct 42.6 % (37.0-47.0) 01/13/24 Plt 294 K/uL (130-400) 01/13/24 Na 140 mmol/L (136-145) 01/13/24 K 3.8 mmol/L (3.5-5.1) 01/13/24 Cl 102 mmol/L (98-107) 01/13/24 CO2 29 mmol/L (21-32) 01/13/24 BUN 18 mg/dl (6-23) 01/13/24 Creat 1.12 mg/dl (0.6-1.2) 01/13/24 Glucose Level 78 mg/dl (70-99(Fasting)) 01/13/24 PT 11.4 Seconds (9.0-12.0) 01/13/24 INR 1.1 (0.9-1.1) 01/13/24 Urine Color Yellow 01/13/24 Urine Appearance Clear (Clear) 01/13/24 Urine pH 5.5 (4.5-7.5) 01/13/24 Urine Specific [place] 1.007 (1.000-1.030) 01/13/24 Urine Protein Negative (Negative) 01/13/24 Urine Glucose (UA) Negative (Negative) 01/13/24 Urine Ketones Negative (Negative) 01/13/24 Urine Blood Negative (Negative) 01/13/24 Urine Nitrite Negative (Negative) 01/13/24 Urine Bilirubin Negative (Negative) 01/13/24 Urine Urobilinogen Negative (Negative) 01/13/24 Urine Leukocyte Esterase 1+ (Negative) H 01/13/24 Urine WBC (Auto) 0-5 /hpf (0-5) 01/13/24 Urine RBC (Auto) 0-2 /hpf (0-2) 01/13/24 Urine Hyaline Casts (Auto) 0-2 /lpf (0-2) 01/13/24 Urine Epithelial Cells (Auto) 0-2 /hpf (0-2) 01/13/24 Urine Bacteria (Auto) None Seen (None Seen) 01/13/24 Blood Type B Positive 01/13/24 Antibody Screen NEGATIVE 01/13/24 Testing Electrocardiogram Date: 01/13/24 Findings: + NSR @ (70bpm) Nonspecific ST abnormality When compared to EKG from Sep 02, 2019- nonspecific T wave abnormality now evident in lateral leads per cardio Chest X-Ray Date: 01/13/24 Findings: + NAD FINDINGS: Cardiomediastinal and hilar silhouettes are within normal limits. No pneu mothorax, pleural effusion, airspace consolidation or pulmonary edema. Degenerative changes of the shoulders and spine Echocardiogram Date: 10/06/23 EF: 55-59% LV Function: normal RWMA: + none Other Findings: + LVH (mild/concentric ) and + diastolic dysfunction (Grade I ) Mild AV sclerosis without stenosis is present Stress Test Date: 05/24/22 Type: nuclear (ECHO) Resting EF: 55-59% Resting LV Function: normal Valvular Disease: no significant valvular disease Pharmacologic stress ECHO is negative for inducible ischemia. MPHR 92%. Stress EKG response showed no evidence of ischemia Baseline EKG reveals SR at 93bpm with frequent PVCs in pattern of ventricular bigeminy. Frequency of ventricular ectopy decreased with pharmacologic stress Equivocal flat blood pressure response was observed with noted transient hypotension in the post infusion recovery interval. Mild cLVH.
[~2024-02-03 09:02] MED LIST: ACETAMINOPHEN 1000 MG/100 ML IV IV ONE
[2024-02-03] MEDS ORDERED: fentaNYL citrate PF 100 MCG/2 ML VIAL ONE ×2 (09:36→12:59)
[2024-02-03] MEDS ORDERED: KETAMINE HCL 10MG/ML SYR ONE (09:36)
[2024-02-03] MEDS ORDERED: MIDAZOLAM HCL 1 MG/ML 2ML VIAL ONE (09:36)
[2024-02-03] MEDS: ACETAMINOPHEN 500 MG TAB PO SCH (10:11)
[2024-02-03] MEDS: LR 60ML/HR IV SCH (10:12)
[2024-02-03] MEDS: GABAPENTIN 300 MG CAP PO SCH (10:12)
[2024-02-03] MEDS: dexAMETHasone**PF** 10 MG/ML VIAL IV SCH (10:12)
[2024-02-03] MEDS: CeleBREX 200 MG CAP PO SCH (10:12)
[2024-02-03] MEDS: LR 15ML/HR IV SCH (10:13)
[2024-02-03] MEDS ORDERED: ePHEDrine sulfate 50 MG/ML AMP IV PRN (10:28)
[2024-02-03] MEDS ORDERED: ATROPINE SULFATE 0.1 MG/ML 10ML SYR IV PRN (10:28)
[2024-02-03] MEDS ORDERED: PROMETHAZINE HCL 6.25 MG in SODIUM CHLORIDE 0.9% 50 ML IV PRN (10:28)
[2024-02-03] MEDS ORDERED: HYDROmorphone INJ 2 MG/ML SYR/VIAL IV PRN (10:28)
--- NOTE | 2024-02-03 10:50 | History & Physical Bridge Note ---
Date of Service February 03, 2024 History & Physical Bridge Note I have examined the patient, reviewed the History & Physical and in the interval since the performance of the History & Physical I have noted the following changes of clinical significance: no changes noted
--- NOTE | 2024-02-03 10:51 | History & Physical Report ---
Date of Service February 03, 2024 Assessment & Plan (1) Neurogenic claudication due to lumbar spinal stenosis: Plan: T11-L4 decompression and fusion, hardware removal L4-L5. History of Present Illness Chief Complaint: Back and bilateral leg pain Primary Care Provider: Rene Pedraza MD This is a 68-year-old female presents with chronic persistent back and leg pain after an extensive course of nonoperative care is here for surgical invention. Allergies Allergy/AdvReac Type Severity Reaction Status Date / Time propoxyphene AdvReac Mild Nausea Verified 02/03/24 09:37 [From Darvocet-N] Home Medications Medication Instructions Recorded Confirmed Type atorvastatin 40 mg tablet 40 mg PO HS 08/31/19 02/03/24 History omeprazole 20 mg capsule,delayed 20 mg PO QAM 08/31/19 02/03/24 History release potassium chloride 10 mEq 10 meq PO QAM 08/31/19 02/03/24 History tablet,extended release acetaminophen 650 mg 650 mg PO HS PRN Pain 12/26/20 02/03/24 History tablet,extended release (Tylenol Arthritis Pain) albuterol sulfate 90 mcg/actuation 2 inh inhalation QID PRN sob 12/26/20 02/03/24 History aerosol inhaler (Ventolin HFA) furosemide 40 mg tablet 40 mg PO QAM 12/26/20 02/03/24 History multivitamin 1 tab PO QAM 12/26/20 02/03/24 History spironolactone 25 mg tablet 25 mg PO QAM 12/26/20 02/03/24 History valsartan 80 mg tablet 80 mg PO QAM 12/26/20 02/03/24 History bupropion HCl 150 mg 24 hr tablet, 150 mg PO QAM 01/18/24 02/03/24 History extended release (Wellbutrin XL) diclofenac sodium 75 mg 75 mg PO BID 01/18/24 02/03/24 History tablet,delayed release duloxetine 30 mg capsule,delayed 90 mg PO HS 01/18/24 02/03/24 History release duloxetine 60 mg capsule,delayed 60 mg PO QAM 01/18/24 02/03/24 History release furosemide 40 mg tablet 40 mg PO QPM PRN Edema 01/18/24 02/03/24 History lorazepam 0.5 mg tablet 0.5 mg PO DAILY PRN Anxiety 01/18/24 02/03/24 History Vitamin D3 5,000 mcg PO 02/03/24 History Past Med/Surg History Problem List (Updated 02/03/24 @ 10:50 by Herbert Delarosa DO) Neurogenic claudication due to lumbar spinal stenosis Encounter for pre-operative examination CHF (congestive heart failure) (Acute) Hypoxia (Acute) HTN (hypertension) Medical History (Updated 02/03/24 @ 10:50 by Herbert Delarosa DO) HTN (hypertension) Hx of squamous cell carcinoma Anxiety History of COVID-19 (2021) no hosp; resolved Osteoarthritis Degenerative disc disease Chronic back pain Stress incontinence GERD (gastroesophageal reflux disease) History of diverticulosis Depression Congestive heart failure (2019) hx- with preserved EF - follows with Dr Carrion. EF 55-59% per 09/2023 ECHO Hyperlipidemia Sleep apnea CPAP Chronic obstructive pulmonary disease Surgical History History of breast biopsy benign left breast History of bilateral tubal ligation S/P lumbar spinal fusion (~1996) L4/L5 History of esophagogastroduodenoscopy (EGD) History of colonoscopy History of cataract surgery bilateral Family History Other No family history of adverse response to anesthesia Social History Smoking Status: Current every day smoker Tobacco Type: Cigarettes Cigarettes Per Day: 20 per day-advised; Second Hand Exposure: Yes (in the past); Do You Dip or Chew Tobacco: No; Tobacco Cessation Education Requested by Patient: No Hx Alcohol Use: Yes Alcohol type: hard liquor Hx Substance Use: No Preferred Language: [place] Communication Ability: Effective Dentist Private Practice Required: No Beliefs That Will Affect Care: None Current Living Situation: Significant Other Other Information That Helps Us Care for You: No Feels Safe at Home: Yes Safety Concerns: Feels Safe At This Time Assistive Devices: CPAP, Denture - Upper, Glasses and Walker Physical Exam Physical Exam: Patient is alert and oriented Heart regular in rhythm Lungs clear Results & Data Results & Data Vital Signs (Past 12 Hours) Vital Signs Temp Pulse Resp BP Pulse Ox O2 Del Method 02/03/24 09:45 36.7 C 82 20 134/82 94 Room Air
[2024-02-03] MEDS ORDERED: PROPOFOL IV EMULSION 10 MG/ML 20 ML VIAL IV ONE (11:21)
[2024-02-03] MEDS ORDERED: ROCURONIUM BROMIDE 10 MG/ML 5 ML VIAL IV ONE ×2 (11:21→12:59)
[2024-02-03] MEDS: ceFAZolin 2000MG 2,000 MG/15 ML SYR IV SCH ×2 (11:31→20:58)
[2024-02-03] MEDS: ceFAZolin 330 MG/ML 1 GM VIAL ONE (12:22)
[2024-02-03] MEDS: BUPIVACAINE/EPINEPHRINE 0.25% 1:200,000 30 ML VIAL ONE ×2 (12:22→12:24)
[2024-02-03] MEDS ORDERED: ONDANSETRON INJ 2 MG/ML 2 ML VIAL ONE (12:41)
[2024-02-03] MEDS ORDERED: GLYCOPYRROLATE 0.2 MG/ML VIAL ONE (12:41)
[2024-02-03] MEDS ORDERED: DEXAMETHASONE SOD INJ 4 MG/ML VIAL ONE (12:41)
[2024-02-03] MEDS ORDERED: ePHEDrine sulfate 50 MG/ML AMP ONE (12:41)
[2024-02-03] MEDS ORDERED: PHENYLEPHRINE 100MCG/ML 10ML SYR IV ONE (12:41)
[2024-02-03] MEDS ORDERED: SUGAMMADEX SODIUM 200 MG/2 ML VIAL IV ONE (12:42)
[2024-02-03] MEDS ORDERED: DexMEDEtomidine HCL IV 100 MCG/ML VIAL IV ONE (12:48)
[2024-02-03] MEDS ORDERED: ceFAZolin 330 MG/ML 1 GM VIAL ONE ×2 (12:49→15:13)
[2024-02-03] MEDS ORDERED: PHENYLEPHRINE HCL 10 MG/ML VIAL ONE (12:52)
[2024-02-03] MEDS ORDERED: ALBUMIN HUMAN 5% 12.5 GM/250 ML VIAL IV ONE (13:51)
[2024-02-03] MEDS ORDERED: HYDROmorphone INJ 2 MG/ML SYR/VIAL ONE (15:12)
[2024-02-03] MEDS: FLOSEAL HEMOSTATIC MATRIX 10ML TOP ONE (15:14)
--- NOTE | 2024-02-03 15:17 | Operative Report ---
Post Operative Report Pre & Post Diagnosis Operation Date: 02/03/24 10:25 Pre-Op Diagnosis: Neurogenic claudication due to lumbar spinal stenosis Morbid obesity Post-Op Diagnosis: Same I identified the patient and participated in the time-out.: Yes Procedure Operation Date: 02/03/24 10:25 Actual Procedures #1 removal of posterior instrumentation L4-L5. #2 exploration of fusion L4-5. #3 decompression with bilateral medial facetectomies and foraminotomies T11-T12, T12-L1, L1-L2, L2-L3 and L3-L4. #4 posterior spinal fusion T11-L4. #5 placement of posterior segmental instrumentation T11-L5. #6 placement infuse collagen sponge, with Koros bone graft in the posterior gutters T11-L4. #7 placement of locally harvested morselized autograft posterior gutters. Surgeon Herbert Dealrosa, DO Shuttle Veneering Supervisor Darius Colón Estimated Blood Loss 1,300 Findings See Below The patient is 5 foot 4 weighing over 114 kg with a BMI in excess of 43. Patient also had an EBL of greater than 1300 cc. These factors combined with patient positioning and the procedure itself at index significant technical difficulty at least 50% increased operative time. Subsequently I am using a 22 modifier. Specimens None Indications This is a 68-year-old female who presents above-mentioned diagnosis after failing course of nonoperative care is here for surgical invention. Description of Procedure Patient was met with identified informed consent obtained. Patient was then t aken to the operative suite underwent patient placed in a prone position on the Dom table on top of the Jose frame. Operative promises well-padded eyes inspected to ensure no external precipice upon them. This point the thoracolumbar spine was prepped and draped no sterile fashion. Sharp dissection with the assistance of Bovie cautery was then performed down to exposing the lamina and transverse processes of T11-T12 L1-L2-L3 and the instrumentation at L4-L5 bilaterally. I then proceeded to move the hardware bilaterally explored the fusion mass noting it to be mature and intact. And then performed a complete laminectomy of L3, L2, L1, T12 and partial laminectomy of T11. This included bilateral medial facetectomies and foraminotomies at each level to address severe spinal stenosis. Pedicle screws were then placed from T11-L5 bilaterally with assistance of fluoroscopy in the process rolando contoured and locked in position. The transverse processes from T11-L4 were then burred to subcortical and bone. Infuse collagen sponge combined with Koros bone graft and locally harvested morselized autograft placed in the posterior gutters. 15 round SERG drain inserted. The incision was then closed with 1 Vicryl in the fascia 2-0 Vicryl subcutaneously and 4 Monocryl for final closure. Steri-Strips sterile dressings placed. Patient waken taken to PACU stable condition. Please note spinal cord monitoring was utilized at the procedure no changes noted. Maritza Colón was present at the entire surgery upon the patient positioning complex portion of the surgery and final skin closure. I attest to the content of the Intraoperative Record and any orders documented therein. Any exceptions are noted below.
--- NOTE | 2024-02-03 15:38 | Fluoroscopy Report ---
INTRAOPERATIVE RADIOGRAPHS CLINICAL HISTORY: Thoracolumbar spinal fusion. Fluoro time: 46 seconds Ka,r: 46.70 mGy FINDINGS: 4 spot fluoroscopic views of the thoracolumbar spine are presented. There is evidence of mu ltilevel thoracolumbar laminectomy and posterior fusion. This is reportedly at T11-L5. The levels can not be definitively delineated on the provided images. The orthopedic hardware appears intact. IMPRESSION: Intraoperative images from thoracolumbar spinal fusion surgery as above. Electronically signed by: Anibal Flores M.D. 02/03/2024 3:37 PM
[2024-02-03] MEDS: ONDANSETRON INJ 2 MG/ML 2 ML VIAL IV PRN (16:24)
[2024-02-03] MEDS: fentaNYL citrate PF 100 MCG/2 ML VIAL IV PRN (16:26)
--- NOTE | 2024-02-03 17:14 | Anesthesiology Progress Note ---
Date of Service February 03, 2024 Anesthesia Post Procedure Vital Signs Vital Signs: Temp Pulse Pulse Resp BP Pulse Ox O2 Del Method 02/03/24 17:00 91 H 14 166/95 H 95 Nasal Cannula 02/03/24 16:50 37.0 C 88 14 164/96 H 95 Nasal Cannula 02/03/24 16:40 90 17 164/90 H 95 Nasal Cannula 02/03/24 16:30 92 H 15 154/86 H 94 Nasal Cannula 02/03/24 16:20 93 H 20 155/98 H 97 Oxymask 02/03/24 16:10 92 H 20 146/93 H 96 Oxymask 02/03/24 16:00 91 H 20 131/92 96 Oxymask 02/03/24 15:52 36.4 C L 90 18 165/97 H 97 Oxymask 02/03/24 09:45 36.7 C 82 20 134/82 94 Room Air O2 Flow Rate 02/03/24 17:00 2 02/03/24 16:50 2 02/03/24 16:40 2 02/03/24 16:30 2 02/03/24 16:20 3 02/03/24 16:10 6 02/03/24 16:00 6 02/03/24 15:52 6 02/03/24 09:45 Pain Intensity Back: Pain Intensity: 8 Transfer of Care Handoff Completed per policy Notes Mental Status: alert / awake / arousable Patient Amnestic to Procedure: Yes Nausea / Vomiting: adequately controlled Pain: adequately controlled Airway Patency, RR, SpO2: stable & adequate BP & HR: stable & adequate Hydration State: stable & adequate Anesthetic Complications: no major complications apparent
[2024-02-03] MEDS ORDERED: SOD PHOSPHATE/SOD BIPHOSPHATE ENEMA 132 ML BTL PR PRN (17:38)
[2024-02-03] MEDS ORDERED: METOCLOPRAMIDE HCL INJ 5 MG/ML 2 ML VIAL IV PRN (17:38)
[2024-02-03] MEDS ORDERED: FUROSEMIDE 40 MG TAB PO PRN (17:38)
[2024-02-03] MEDS ORDERED: LORazepam 0.5 MG TAB PO PRN (17:38)
[2024-02-03] MEDS ORDERED: LORazepam 0.5 MG in SYRINGE 0.25 ML IV PRN (17:38)
[2024-02-03] MEDS ORDERED: diphenhydrAMINE Capsule 25 MG CAP PO PRN (17:38)
[2024-02-03] MEDS ORDERED: DO NOT ADMINISTER FLU VACCINE PRN (17:38)
[2024-02-03] MEDS ORDERED: ALBUTEROL HFA 8 GM INHALER INH PRN (17:38)
[2024-02-03] MEDS ORDERED: NALOXONE HCL 0.4 MG/1 ML VIAL/CARP IV PRN (17:38)
[2024-02-03] MEDS ORDERED: hydrOXYzine HCl 25 MG TAB PO PRN (17:38)
[2024-02-03] MEDS ORDERED: FAMOTIDINE 20 MG TAB PO PRN (17:38)
[2024-02-03] MEDS ORDERED: DO NOT ADMINISTER PNEUMOCOCCAL VACCINE PRN (17:38)
[2024-02-03] MEDS: HYDROmorphone INJ 1 MG/ML SYRINGE IV PRN (17:54)
[2024-02-03] MEDS: LACTATED RINGER'S 1,000 ML IV SCH (18:01)
--- NOTE | 2024-02-03 18:54 | Consultation ---
Date of Consultation February 03, 2024 Assessment & Plan (1) S/P spinal surgery: (2) Neurogenic claudication due to lumbar spinal stenosis: Post op day# 0 S/P removal posterior instrumentation L4-L5, decompression & fusion T11-L4 by Dr Isaura GARCIA#[id number] Pain management per ortho Wound management per ortho PT/OT as appropriate DVT prophylaxis per ortho Incentive spirometry Monitor H&H for acute blood loss anemia; pre-op Hgb: 15.4 (3) HTN (hypertension): BP stable Continue valsartan, metoprolol succinate with holding parameters (4) Chronic heart failure with preserved ejection fraction: 10/06/23 Echo: EF: 55-59%, grade I diastolic dysfunction, mild aortic sclerosis without stenosis Appears euvolemic Hold hold Lasix and spironolactone, KCl supplement and and reassess volume status tomorrow Continue metoprolol succinate, valsartan with holding parameters (5) Chronic obstructive pulmonary disease: No sign acute exacerbation Chronic clear productive cough at baseline and intermittent wheezing. Denies increased cough or sputum production. Reports prior history of being on daily maintenance inhaler however reports insurance and affordability issues so uses albuterol TID as "preventative" Continue albuterol prn (6) Anxiety and depression: Continue home medications (7) SHAN (obstructive sleep apnea): CPAP HS (8) Prediabetes: A1c: 6.0 on 07/01/2023 Diet controlled Monitor glucose on am labs A1c in AM (9) Tobacco use: Smoking cessation encouraged Nicotine patch DVT Prophylaxis SCDs per ortho Disposition per primary service Follows with Dr Pedraza for routine care Pt was seen and care coordinated with Dr Rabago. See addendum Thank you for this consultation. We will follow the patient with you during their hospital stay. You can reach a member of the [facility] Hospitalist Team 21/03 via [facility] Supervising Physician Co-Signing Physician Notes I have seen and discussed the case with the collaborating advanced practitioner. I agree with the above H&P. I have reviewed and confirmed the patients medical history, the findings on physical examination, and the patients diagnosis and treatment plan with PAAmitaC and agree with the information documented. In short, Ms Blanchard is a 68 year old woman s/p elective lumbar decompression and fusion 02/02 for whom medicine consulted for comanagement. Patient stable post op and notes improvement in left radiculopathic leg pain GENERAL APPEARANCE: AxOx4, tired appearing woman, no acute distress. HEENT: NC, AT. MMM. EOMI, clear conjunctiva, oropharynx clear. NECK: Supple without lymphadenopathy. No stiffness or restricted ROM. HEART: Normal rate and regular rhythm, normal S1/S1, no m/r/g LUNGS: CTAB, moving air well. No crackles or wheezes are heard. ABDOMEN: Soft, nontender, nondistended with good bowel sounds heard. EXTREMITIES: Without cyanosis, clubbing or edema. NEUROLOGICAL: Grossly nonfocal. Alert and oriented, moving all 4 extremities. CN not formally tested but appear grossly intact. Skin: Warm and dry without any rash. #Neurogenic claudication s/p lumbar decompression/fusion 02/02 pt/ot pain and dvt ppx per primary CBC and BMP in am encourage IS #SHAN cpap #HFpEF appears euvolemic resume home medications, monitor fluid status #COPD stable at this time rest of plan as above I spent a total of 25 minutes coordinating, documenting, and providing care for this patient excluding time spent in the performance of separately billed services. All of the aforementioned completed outside of collaborating with the assigned advanced practitioner for a full treatment plan. I have reviewed the advanced practitioner's documentation, and I agree with, and take responsibility for the plan of care History of Present Illness Requesting Physician: Dr Delarosa Reason for Consultation: Post op medical management Attending Physician: Herbert Delarosa, History of Present Illness Patient is 68 year old female with PMH HTN, dyslipidemia, chronic diastolic heart failure, prediabetes, SHAN, COPD, depression, anxiety, obesity, and others listed below seen in medical consultation s/p removal posterior instrumentation L4-L5, decompression [id number] today [address] Delarosa. Post op patient reports having some back discomfort. Prior to surgery reports left leg pain and currently feels this is slightly improved. Has Carias catheter in place. Denies N/V, CP, SOB. Patient states chronic cough productive clear sputum and denies any increased cough, increased sputum production or SOB. Patient reports unable to afford daily maintenance inhaler for COPD so she uses her albuterol inhaler TID as "preventative", denies any SOB or increased wheezing. Report BLE at baseline. She is prescribed Lasix 40mg daily and can use 20mg in afternoon as needed but states she uses this regularly to help keep BLE edema down. Denies fever/chills, diaphoresis, N/V/D/C, [place], dizziness, syncope, vision changes, neck pain, CP, SOB, palpitations, increased cough, sore throat, rhinorrhea, abdominal pain, paresthesias, increased extremity edema, rashes, dysuria, hematuria. Allergies Allergy/AdvReac Type Severity Reaction Status Date / Time propoxyphene AdvReac Mild Nausea Verified 02/03/24 09:37 [From CodieDavid] Home Medications Medication Instructions Recorded Confirmed Type atorvastatin 40 mg tablet 40 mg PO HS 08/31/19 02/03/24 History omeprazole 20 mg capsule,delayed 20 mg PO QAM 08/31/19 02/03/24 History release potassium chloride 10 mEq 10 meq PO QAM 08/31/19 02/03/24 History tablet,extended release acetaminophen 650 mg 650 mg PO HS PRN Pain 12/26/20 02/03/24 History tablet,extended release (Tylenol Arthritis Pain) albuterol sulfate 90 mcg/actuation 2 inh inhalation QID PRN sob 12/26/20 02/03/24 History aerosol inhaler (Ventolin HFA) furosemide 40 mg tablet 40 mg PO QAM 12/26/20 02/03/24 History multivitamin 1 tab PO QAM 12/26/20 02/03/24 History spironolactone 25 mg tablet 25 mg PO QAM 12/26/20 02/03/24 History valsartan 80 mg tablet 80 mg PO QAM 12/26/20 02/03/24 History diclofenac sodium 75 mg 75 mg PO BID 01/18/24 02/03/24 History tablet,delayed release duloxetine 30 mg capsule,delayed 30 mg PO HS 01/18/24 02/03/24 History release duloxetine 60 mg capsule,delayed 60 mg PO BID 01/18/24 02/03/24 History release furosemide 40 mg tablet 20 mg PO QPM PRN Edema 01/18/24 02/03/24 History lorazepam 0.5 mg tablet 0.5 mg PO DAILY PRN Anxiety 01/18/24 02/03/24 History Vitamin D3 5,000 mcg PO 02/03/24 History metoprolol succinate 25 mg 25 mg PO DAILY 02/03/24 02/03/24 History tablet,extended release 24 hr Patient History Medical History HTN (hypertension) Hx of squamous cell carcinoma Anxiety History of COVID-19 (2021) no hosp; resolved Osteoarthritis Degenerative disc disease Chronic back pain Stress incontinence GERD (gastroesophageal reflux disease) History of diverticulosis Depression Congestive heart failure (2019) hx- with preserved EF - follows with Dr Carrion. EF 55-59% per 09/2023 ECHO Hyperlipidemia Sleep apnea CPAP Chronic obstructive pulmonary disease Surgical History History of breast biopsy benign left breast History of bilateral tubal ligation S/P lumbar spinal fusion (~1996) L4/L5 History of esophagogastroduodenoscopy (EGD) History of colonoscopy History of cataract surgery bilateral Family History Other No family history of adverse response to anesthesia Social History Smoking Status: Current every day smoker Tobacco Type: Cigarettes Cigarettes Per Day: 20 per day-advised; Second Hand Exposure: Yes; Do You Dip or Chew Tobacco: No; Tobacco Cessation Education Requested by Patient: No Hx Alcohol Use: No Hx Substance Use: No Preferred Language: Nepali Communication Ability: Effective Green Prize Packer Required: No Beliefs That Will Affect Care: None Current Living Situation: Spouse Other Information That Helps Us Care for You: No Feels Safe at Home: Yes Safety Concerns: Feels Safe At This Time Assistive Devices: Denture - Upper and Glasses Review of Systems Review of Systems: All systems reviewed & are unremarkable except as noted in HPI & below Physical Exam Physical Exam: General: mild distress secondary to discomfort, obese Head: normocephalic, atraumatic Eyes: conjunctiva non-injected, anicteric ENT: normal inspection external ears, nose, mucous membranes moist Neck: supple, trachea midline Lungs: coarse breath sounds, no respiratory distress, no wheezing/rales noted CV: RRR, no murmur, trace pretibial edema Abd: protuberant, normal BS, soft, non-tender Back: surgical dressing in place, +SERG drain with serosanguineous drainage Ext: no cyanosis, no calf tenderness, bilateral pedal pushes and pulls intact, sensation to light touch intact Neuro: A&O x 3, no focal deficits noted, normal affect Skin: warm, dry Results & Data Vital Signs (Past 12 Hours) Vital Signs Temp Pulse Pulse Resp BP Pulse Ox O2 Del Method 02/03/24 18:30 36.6 C 90 18 136/84 95 Nasal Cannula 02/03/24 17:15 88 14 144/85 H 95 Nasal Cannula 02/03/24 17:00 91 H 14 166/95 H 95 Nasal Cannula 02/03/24 16:50 37.0 C 88 14 164/96 H 95 Nasal Cannula 02/03/24 16:40 90 17 164/90 H 95 Nasal Cannula 02/03/24 16:30 92 H 15 154/86 H 94 Nasal Cannula 02/03/24 16:20 93 H 20 155/98 H 97 Oxymask 02/03/24 16:10 92 H 20 146/93 H 96 Oxymask 02/03/24 16:00 91 H 20 131/92 96 Oxymask 02/03/24 15:52 36.4 C L 90 18 165/97 H 97 Oxymask 02/03/24 09:45 36.7 C 82 20 134/82 94 Room Air O2 Flow Rate 02/03/24 18:30 3 02/03/24 17:15 2 02/03/24 17:00 2 02/03/24 16:50 2 02/03/24 16:40 2 02/03/24 16:30 2 02/03/24 16:20 3 02/03/24 16:10 6 02/03/24 16:00 6 02/03/24 15:52 6 02/03/24 09:45 Diagnostic Findings Lumbar Spine X-Ray 02/03/24 10:25 INTRAOPERATIVE RADIOGRAPHS CLINICAL HISTORY: Thoracolumbar spinal fusion. Fluoro time: 46 seconds Ka,r: 46.70 mGy FINDINGS: 4 spot fluoroscopic views of the thoracolumbar spine are presented. There is evidence of multilevel thoracolumbar laminectomy and posterior fusion. This is reportedly at T11-L5. The levels cannot be definitively delineated on the provided images. The orthopedic hardware appears intact. IMPRESSION: Intraoperative images from thoracolumbar spinal fusion surgery as above. Electronically signed by: Anibal Flores M.D. 02/03/2024 3:37 PM
[2024-02-03] MEDS: HYDROmorphone INJ 0.5 MG/0.5 ML SYR IV PRN (19:41)
[2024-02-03] MEDS: NICOTINE 21 MG/24 HR TDSY TD SCH (20:55)
[2024-02-03] MEDS: ATORVASTATIN 40 MG TAB PO SCH (20:56)
[2024-02-03] MEDS: DOCUSATE SODIUM/SENNA 50/8.6MG TAB PO SCH (20:56)
[2024-02-03] MEDS: DULoxetine HCL 60 MG CAP PO SCH (20:57)
[2024-02-03] MEDS: DULoxetine HCL 30 MG CAP PO SCH (20:57)
[2024-02-03] MEDS ORDERED: DULoxetine HCL 30 MG CAP PO SCH (21:00)
[2024-02-03] MEDS: ONDANSETRON 4 MG OD TAB PO PRN (22:51)
[2024-02-04] MEDS: oxyCODONE HCL IR 5 MG TAB (IMMEDIATE RELEASE) PO PRN (01:38)
--- OUTSIDE RECORDS SUMMARY | 2024-02-04 02:16 | External Medical Summary | Summary of Care ---
Author Name Unknown Organization [facility] Address [address] [place] [address] Phone [phone] Care Team Providers Care Medical Lab Director Name Role Phone Rene Pedraza MD Primary Care Provider [phone] Reason for Visit * Reason Onset Date Comments Information 01/31/2024 AAA screening Encounter Details Date Type Department Care Team (Late st Contact Info) Description 01/31/2024 Telephone Family Practice [facility] [address] [facility] [place] [address] Rene Pedraza MD [address] [facility] [place] [address] Information (AAA screening ) Allergies Active Allergy Reactions Criticality Noted Date Comments Propoxyphene Nausea/vomiting 01/31/2017 documented as of this encounter (statuses as of 02/02/2024) Medications Medication Sig Dispensed Refills Start Date End Date Status Multiple Vitamins-Minerals (MULTIPLE VITAMINS/WOMENS) Tablet Take 1 Tablet by mouth in the morning. Active Furosemide 40 MG Oral Tablet (Lasix)Indications:H eart failure, diastolic, due to HTN (HCC),Localized edema,Essential hypertension with goal blood pressure less than 140/90 TAKE 1 TABLET BY MOUTH IN THE MORNING AND 1/2 TABLET IN THE AFTERNOON 135 Tablet 3 05/03/2023 Active Albuterol Sulfate (2.5 MG/3ML) 0.083% Inhalation Nebulization Solution (Proventil)Indicatio ns:Mild persistent asthma without complication Inhale 1 Vial via nebulizer every 6 hours as needed for Wheezing. 360 mL 11 06/23/2023 Active Atorvastatin Calcium 40 MG Oral Tablet (Lipitor) TAKE 1 TABLET BY MOUTH EVERY DAY 90 Tablet 3 08/03/2023 Active Klor-Con M10 10 MEQ Oral Tablet Extended Release (potassium chloride ER) TAKE 1 TABLET BY MOUTH EVERY DAY IN THE MORNING 90 Tablet 3 08/18/2023 Active Metoprolol Succinate ER 25 MG Oral Tablet Extended Release 24 Hour (toPROL XL)Indications:Heart failure, diastolic, due to HTN (HCC),PVC (premature ventricular contraction),Essenti al hypertension with goal blood pressure less than 140/90 Take 1 Tablet by mouth in the morning. 90 Tablet 3 08/23/2023 Active Dorzolamide HCl-Timolol Mal 2-0.5 % Ophthalmic Solution (Cosopt Ocumeter Plus) INSTILL 1 DROP INTO BOTH EYES IN THE MORNING AND 1 DROP BEFORE BEDTIME. 30 mL 1 09/07/2023 Active DULoxetine HCl 30 MG Oral Capsule Delayed Release Particles (Cymbalta) Take 1 Capsule by mouth in the morning. 90 Capsule 2 09/21/2023 Active Diclofenac Sodium 75 MG Oral Tablet Delayed Release (Voltaren) Take 1 Tablet by mouth in the morning and 1 Tablet before bedtime. 10/25/2023 Active Omeprazole 20 MG Oral Capsule Delayed Release (PriLOSEC) TAKE 1 CAPSULE BY MOUTH EVERY MORNING 90 Capsule 1 12/12/2023 Active Valsartan 80 MG Oral Tablet (Diovan)Indications: HTN, goal below 140/90 TAKE 1 TABLET BY MOUTH EVERY DAY 90 Tablet 1 12/12/2023 Active Albuterol Sulfate HFA 108 (90 Base) MCG/ACT Inhalation Aerosol SolutionIndications: Mild persistent asthma without complication INHALE 2 PUFFS BY MOUTH 4 TIMES A DAY NEEDED FOR SHORTNESS OF BREATH OR WHEEZING. 18 g 1 12/12/2023 Active Triamcinolone Acetonide 0.1 % External Cream (Aristocort) Apply topically to affected area as needed for Irritation. 30 g 3 12/12/2023 Active LORazepam 0.5 MG Oral Tablet (Ativan)Indications: Panic attacks Take 1 Tablet by mouth daily as needed for Anxiety. 30 Tablet 01/04/2024 Active traMADol HCl 50 MG Oral Tablet (Ultram) Take 1 Tablet by mouth every 8 hours as needed for Pain, Severe. 45 Tablet 1 01/05/2024 Active DULoxetine HCl 60 MG Oral Capsule Delayed Release Particles (Cymbalta) TAKE 1 CAPSULE BY MOUTH DAILY IN THE MORNING AND 1 BEFORE BEDTIME DO NOT CUT, CRUSH OR CHEW 180 Capsule 1 01/25/2024 Active Spironolactone 25 MG Oral Tablet (Aldactone) TAKE 1 TABLET BY MOUTH EVERY DAY IN THE MORNING 90 Tablet 1 01/25/2024 Active Vitamin D3 Maximum Strength 125 MCG (5000 UT) Oral Capsule (Cholecalciferol) Take 1 Capsule by mouth in the morning. Active documented as of this encounter (statuses as of 02/02/2024) Active Problems Problem Noted Date Diagnosed Date Vulvar cancer 07/05/2023 Dyslipidemia 07/04/2023 Prediabetes 12/06/2022 Overview: Per Prediabetes protocol SHAN (obstructive sleep apnea) 03/18/2020 Heart failure, diastolic, due to HTN 09/28/2019 Diverticulosis of sigmoid colon 02/22/2019 Overview: Colonoscopy 02/21/19 Alcohol abuse, episodic 11/21/2018 Depression with anxiety 01/25/2018 Gastroesophageal reflux disease without esophagi tis 01/25/2018 Mild persistent asthma without complication 12/29 HTN, goal below 130/80 01/25/2018 Chronic bilateral low back pain without sciatica 09/07/2017 Tobacco use disorder 09/07/2017 Morbid obesity 08/03/2017 Stress incontinence documented as of this encounter (statuses as of 02/02/2024) Resolved Problems Problem Noted Date Diagnosed Date Resolved Date Vulvar lesion 07/08/2022 02/02/2023 Overview: 07/01/2022: A. Left labia majora lesion: Atypical squamous proliferation, extending to both peripheral inked edges Comment: This case has been peer reviewed. A diagnosis of superficially invasive well differentiated squamous cell carcinoma is favored; however, the histologic differential diagnosis includes both differentiated type intraepithelial dysplasia and an unusual pseudoepitheliomatous (pseudocarcinomatous) hyperplasia. This lesion should be completely excised. B. Left labia majora macerated/erythematous tissue: Interface lymphocytic inflammation Comment: The histologic differential diagnosis includes lichen planus, lichen planus-like reaction to systemic medication, lichenoid contact dermatitis and early lichen sclerosus. There is no evidence of dysplasia in the portion of tissue submitted. 07/28/2022: Patient examined in office with vast improvement since her biopsy. Will prescribed Aldara and re-evaluate in 3 months. Body mass index (BMI) of 45. 0 to 49.9 in adult 04/05/2022 06/07/2022 Overview: Per Obesity protocol Prediabetes 10/20/2021 05/13/2022 Sleep apnea in adult 08/31/2019 020 Overview: By sleep study in [place] COPD, moderate 09/07/2017 01/25/2018 Hip pain, left 09/07/2017 01/25/2018 Chronic pain of right ankle 08/03/2017 01/25/2018 Ankle weakness 08/03/2017 01/25/2018 CHR AIRWAY OBSTRUCT NEC 08/29 documented as of this encounter (statuses as of 02/02/2024) Immunizations Name Administration Dates Next Due COVID-19 mRNA, LNP-s, No Pre serve, 2-Dose Series (Moderna) 07/10/2021,10/15/2020,09/17/2020 Pneumococcal Conjugate Vacci ne, 20-valent ([id number]) 02/02/2023 Pneumococcal Polysaccharide PPV23 (Pneumovax) 01/18/2018 Seasonal Influenza, PF, 6 M & above, IM , (FluLaval or Fluzone) 06/18/2021,07/08/2020,06/07/2019 Seasonal Influenza, Quadriva lent Hd (Fluzone Hd) 06/23/2023,06/07/2022 Seasonal Influenza, Split, I IV3, With Preserve, Inj 06/28/2018 TDAP (age 10 and older)(Boostrix) 01/18/2018 Zoster Vaccine Recombinant (Shingrix) 07/08/2020 ,03/18/2020 documented as of this encounter Social History Tobacco Use Types Packs/Day Years Used Date Smoking Tobacco: Every Day Cigarettes Smokeless Tobacco: Never Alcohol Use Standard Drinks/Week Comments Yes 0 (1 standard drink = 0.6 oz pur e alcohol) social PHQ-2 Answer Date Recorded PHQ-2 Score 0 03/18/2020 Hunger Vital Sign Answer Date Recorded Worried About Running Out of Food in the Last Ye ar Never true 06/07/2019 Ran Out of Food in the Last Year Never true 06/07/2019 Sex and Gender Information Value Date Recorded Sex Assigned at Female 09/06/2019 10:58 AM EST Gender Identity Female 09/06/2019 10:58 AM EST Sexual Orientation Straight 09/06/2019 10 :58 AM EST Job Start Date Occupation Industry Not on file Not on file Not on file documented as of this encounter Miscellaneous Notes * Telephone Encounter - Damaris Mortensen LPN - 02/02/2024 3:10 PM EDT I am calling to discuss some recommended testing. Our records indicate that you are due for a screening ultrasound of your aorta (this test checks for an enlargement of your aorta at the level of your abdomen). Have you had discussions with your provider about this?we've recently started evaluating your electronic health record to provide better screening and care for people at risk for disease of the aorta (the main artery that carries blood from your heart to the rest of your body). Based on your laboratory results and other clinical conditions, you may be at high risk for an abdominal aortic aneurysm (AAA, an enlargement of your lower aorta). This evaluation doesn't mean you have an AAA. It just means you should get screened at your earliest convenience by having an ultrasound. The screening results will tell your doctor if there's anything they need to examine more closely. Through advanced analysis/trending of this patient's history, they have been identified to have a positive AAA flag and are at a higher risk for Abdominal aortic aneurysm. This advanced analysis estimates the patient's risk for AAA. It only indicates that the patient's chances to have this condition are higher compared to most people. It does not indicate that the patient has this condition, but it is highly recommended the patient have a AAA screening for further evaluation. I have contacted the patient regarding scheduling a AAA screening. Outcomes: AAA screening ordered and scheduled Pt requested end february d/t surgery tomorrow * Telephone Encounter - Damaris Mortensen LPN - 01/31/2024 3:09 PM EDT Through advanced analysis/trending of this patient's history, they have been identified to have a positive AAA flag and are at a higher risk for Abdominal aortic aneurysm. Pt will be contacted by a [facility] nurse to discuss AAA screening. documented in this encounter Plan of Treatment Upcoming Encounters Date Type Department Care Team (Late st Contact Info) Description 03/20/2024 5:40 PM EDT Office Visit Family Practice [facility] [address] [place] [address] Rene Pedraza MD [address] [place] [id number] 03/27/2024 9:00 AM EDT Imaging Radiology [address] [place] [address] 04/06/2024 9:00 AM EDT Office Visit Cardiology, [facility] [address] [place] [address] Marcial Lo PA-C [address] [place] [address] 06/18/2024 11:20 AM EDT Telemedicine Nutrition & Weight Management, [facility] [address] [place] [address] Sarah Roca PA-C [address] [place] [address] Scheduled Orders Name Type Priority Associated Diagnoses Orde r Schedule US AAA SCREEN, RADIOLOGY Medical Imaging Routine Screening for AAA (abdominal aortic aneurysm) Expected: 02/02/2024, Expires: 02/01/2025 Health Maintenance Due Date Last Done Comments DISCUSS TOBACCO CESSATION (REFER TO SMARTSET #[id number]) 1955 DXA Scan 1955 Cologuard 2000 Fecal Occult Blood Test 2000 Sigmoidoscopy 2000 *SPIROMETRY ONCE FOR ASTHMA-ADULT 01/28/2018 COVID-19 Vaccine ( - season) 2023 07/10/2021, 10/15/2020, 09/17/2020 Colonoscopy 02/22/2024 02/21/2019, 02/21/2019 Colorectal Cancer Screening 02/22/2024 HbA1c 07/01/2024 07/01/2023, 10/27, 10/23/2020, Additional history exists Mammogram 10/06/2024 10/06/2023, 11/28, 12/10/2020, Additional history exists GFR 01/12/2025 01/13/2024, 10/2022, 11/12/2022, Additional history exists Albumin/Creatinine Ratio 07/01/2026 07/01/2023, 02/27 DTaP,Tdap,and Td Vaccines (2 - Td or Tdap) 01/19/2028 01/18/2018 Lipid Panel 07/01/2028 07/01/2023, 03/29, 10/23/2020, Additional history exists RETIRED - COLONOSCOPY-EVERY 5 YRS AGES 18-100 Discontinued 02/21/2019, 02/21/2019 Zoster Vaccines Completed 07/08/2020, 03/18/2020 Pap Smear Discontinued 07/01/2022, 12/29, 09/26/2000 Pneumococcal Vaccine: 65+ Years Completed 02/02/2023, 01/18/2018 Influenza Vaccine (FLU shot) Completed 06/23/2023, 06/07/2022, 06/18/2021, Additional history exists GARDASIL-HPV IMMUNIZATION SERIES Aged Out No longer eligible based on patient's age to complete this topic Hepatitis B Aged Out No longer eligi ble based on patient's age to complete this topic MENINGOCOCCAL (MENACTRA/MENVEO) Aged Out No longer eligible based on patient's age to complete this topic documented as of this encounter Medical Devices Not on filedocumented as of this encounter Visit Diagnoses Diagnosis Screening for AAA (abdominal aortic aneurysm)- Primary Screening for other and unspecified cardiovascular conditions documented in this encounter Care Teams Medical Lab Director Relationship Specialty Start Date End Date Rene Pedraza MD [address] [facility] [place] [id number] PCP - General Family Medicine 10/20/21 documented as of this encounter
--- OUTSIDE RECORDS SUMMARY | 2024-02-04 02:16 | External Medical Summary | Summary of Care ---
Author Name Unknown Organization [facility] Address [address] [place] [address] Phone [phone] Care Team Providers Care Streetcar Repairer Helper Name Role Phone Rene Pedraza MD Primary Care Provider [phone] Encounter Details Date Type Department Care Team (Late st Contact Info) Description 01/31/2024 External Data Patient Risk Medial Allergies Active Allergy Reactions Criticality Noted Date Comments Propoxyphene Nausea/vomiting 01/31/2017 documented as of this encounter (statuses as of 01/31/2024) Medications Medication Sig Dispensed Refills Start Date [...] as of this encounter (statuses as of 01/31/2024) Active Problems Problem Noted Date Diagnosed Date [...] as of this encounter (statuses as of 01/31/2024) Resolved Problems Problem Noted Date Diagnosed Date [...] 08/31/2019 020 Overview: By sleep study in [place] COPD, moderate 09/07/2017 01/25/2018 Hip pain, left 09/07/2017 01/25/2018 Chronic pain of right ankle 08/03/2017 01/25/2018 Ankle weakness 08/03/2017 01/25/2018 [facility] OBSTRUCT NEC 08/29 documented as of this encounter (statuses as of 01/31/2024) Immunizations Name Administration Dates Next Due COVID-19 mRNA, LNP-s, No Pre serve, 2-Dose Series (Moderna) 07/10/2021,10/15/2020,09/17/2020 Pneumococcal Conjugate Vacci ne, 20-valent ([id number]) 02/02/2023 Pneumococcal Polysaccharide PPV23 (Pneumovax) 01/18/2018 Seasonal [...] on file documented as of this encounter Plan of Treatment Upcoming Encounters Date Type Department Care Team (Late st Contact Info) Description 03/20/2024 5:40 PM EDT Office Visit Family Practice [facility] [address] [place] [address] Rene Pedraza MD [address] [place] [address] 04/06/2024 9:00 AM EDT Office Visit Cardiology, [facility] [address] [place] [address] Marcial Lo PA-C [address] [place] [address] 06/18/2024 11:20 AM EDT Telemedicine Nutrition & Weight Management, [facility] [address] [place] [address] Sarah Roca PA-C [address] [place] [address] Health Maintenance Due Date Last Done Comments DISCUSS TOBACCO CESSATION (REFER TO SMARTSET #3298) 1955 DXA Scan 1955 Cologuard 2000 Fecal Occult Blood Test 2000 Sigmoidoscopy 2000 *SPIROMETRY ONCE FOR ASTHMA-ADULT 01/28/2018 COVID-19 Vaccine ( season) 2023 07/10/2021, 10/15/2020, 09/17/2020 Colonoscopy 02/22/2024 [...] Not on filedocumented as of this encounter Care Teams Streetcar Repairer Helper Relationship Specialty Start Date End Date Rene Pedraza MD [address] [place] [address] PCP - General Family Medicine 10/20/21 documented as of this encounter
--- OUTSIDE RECORDS SUMMARY | 2024-02-04 02:17 | External Medical Summary | Summary of Care ---
Author Name Unknown Organization [facility] Address [address] [place] [address] Phone [phone] Care Team Providers Care Kiln Burner Helper Name Role Phone Rene Pedraza MD Primary Care Provider [phone] Encounter Details Date Type Department Care Team (Late st Contact Info) Description 01/16/[address] [facility] [address] [place] [address] Rene Pedraza MD [address] [place] [address] Allergies Active Allergy Reactions Criticality Noted Date Comments Propoxyphene Nausea/vomiting 01/31/2017 documented as of this encounter (statuses as of 01/16/2024) Medications Medication Sig Dispensed Refills Start Date End Date Status Multiple Vitamins-Minerals (MULTIPLE VITAMINS/WOMENS) Tablet Take 1 Tablet by mouth in the morning. Active Aspirin 81 MG Oral Tablet Take by mouth 1 Tablet in the morning. 90 Tablet 3 04/20/2022 Active Meloxicam 15 MG Oral Tablet Take 1 Tablet by mouth in the morning. for pain.. 90 Tablet 3 02/25/2023 Active DULoxetine HCl 60 MG Oral Capsule Delayed Release Particles (Cymbalta) TAKE 1 CAPSULE BY MOUTH DAILY IN THE MORNING AND 1 BEFORE BEDTIME DO NOT CUT, CRUSH OR CHEW 180 Capsule 2 04/28/2023 Active Furosemide 40 MG Oral Tablet (Lasix)Indications: Heart failure, diastolic, due to HTN (HCC),Localized edema,Essential hypertension with goal blood pressure less than 140/90 TAKE 1 TABLET BY MOUTH IN THE MORNING AND 1/2 TABLET IN THE AFTERNOON 135 Tablet 3 05/03/2023 Active Albuterol Sulfate (2.5 MG/3ML) 0.083% Inhalation Nebulization Solution (Proventil)Indicati ons:Mild persistent asthma without complication Inhale 1 Vial via nebulizer every 6 hours as needed for Wheezing. 360 mL 11 06/23/2023 Active Naltrexone HCl 50 MG Oral Tablet (Revia) Take 1/2 tab by mouth once a day for 1 week then take 1/2 tab twice a day (morning & late afternoon) 30 Tablet 4 06/28/2023 Active Additional Information Patient not taking.Reported on 11/08/2023 Spironolactone 25 MG Oral Tablet (Aldactone) TAKE 1 TABLET BY MOUTH EVERY DAY IN THE MORNING 90 Tablet 1 07/07/2023 Active Atorvastatin Calcium 40 MG Oral Tablet (Lipitor) TAKE 1 TABLET BY MOUTH EVERY DAY 90 Tablet 3 08/03/2023 Active Klor-Con M10 10 MEQ Oral Tablet Extended Release (potassium chloride ER) TAKE 1 TABLET BY MOUTH EVERY DAY IN THE MORNING 90 Tablet 3 08/18/2023 Active Metoprolol Succinate ER 25 MG Oral Tablet Extended Release 24 Hour (toPROL XL)Indications:Hear t failure, diastolic, due to HTN (HCC),PVC (premature ventricular contraction),Essent ial hypertension with goal blood pressure less than [...] the morning. 90 Capsule 2 09/21/2023 Active buPROPion HCl ER (SR) 150 MG Oral Tablet Extended Release 12 Hour (Wellbutrin SR) Take 1 tab by mouth once a day for 1 week then take 1 tab twice a day (morning & late afternoon) 60 Tablet 4 2023 Active Diclofenac Sodium 75 MG Oral Tablet Delayed Release (Voltaren) Take 1 Tablet by mouth in the morning and 1 Tablet before bedtime. 10/25/2023 Active methylPREDNISolone 4 MG Oral Tablet Therapy Pack (Medrol Dosepack) follow package directions 21 Tablet 11/08/2023 Active diazePAM 5 MG Oral Tablet (Valium) Take 1 Tablet by mouth as needed for Anxiety (prior to MRI - can repeat as needed x1). 2 Tablet 11/08/2023 Active Omeprazole 20 MG Oral Capsule Delayed Release (PriLOSEC) TAKE 1 CAPSULE BY MOUTH EVERY MORNING 90 Capsule 1 12/12/2023 Active Valsartan 80 MG Oral Tablet (Diovan)Indications :HTN, goal below 140/90 TAKE 1 TABLET BY MOUTH EVERY DAY 90 Tablet 1 12/12/2023 Active Albuterol Sulfate HFA 108 (90 Base) MCG/ACT Inhalation Aerosol SolutionIndications :Mild persistent asthma without complication INHALE 2 PUFFS BY MOUTH 4 TIMES A DAY NEEDED FOR SHORTNESS OF BREATH OR WHEEZING. 18 g 1 12/12/2023 Active Triamcinolone Acetonide 0.1 % External Cream (Aristocort) Apply topically to affected area as needed for Irritation. 30 g 3 12/12/2023 Active LORazepam 0.5 MG Oral Tablet (Ativan)Indications :Panic attacks Take 1 Tablet by mouth daily as needed for Anxiety. 30 Tablet 01/04/2024 Active traMADol HCl 50 MG Oral Tablet (Ultram) Take 1 Tablet by mouth every 8 hours as needed for Pain, Severe. 45 Tablet 1 01/05/2024 Active documented as of this encounter (statuses as of 01/16/2024) Active Problems Problem Noted Date Diagnosed Date [...] as of this encounter (statuses as of 01/16/2024) Resolved Problems Problem Noted Date Diagnosed Date [...] 08/31/2019 020 Overview: By sleep study in [place] COPD, moderate 09/07/2017 01/25/2018 Hip pain, left 09/07/2017 01/25/2018 Chronic pain of right ankle 08/03/2017 01/25/2018 Ankle weakness 08/03/2017 01/25/2018 [facility] OBSTRUCT NEC 08/29 documented as of this encounter (statuses as of 01/16/2024) Immunizations Name Administration Dates Next Due COVID-19 mRNA, LNP-s, No Pre serve, 2-Dose Series (Moderna) 07/10/2021,10/15/2020,09/17/2020 Pneumococcal Conjugate Vacci ne, 20-valent ([id number]) 02/02/2023 Pneumococcal Polysaccharide PPV23 (Pneumovax) 01/18/2018 Seasonal [...] 5:40 PM EDT Office Visit Family Practice [facility] [address] [place] [address] Rene Pedraza MD [address] [place] [address] 04/06/2024 9:00 AM EDT Office Visit Cardiology, [facility] [address] [place] [address] Marcial Lo PA-C [address] [place] [address] 06/18/2024 11:20 AM EDT Telemedicine Nutrition & Weight Management, [facility] [address] [place] [address] Sarah Roca PA-C [address] [place] [address] Health Maintenance Due Date Last Done Comments DISCUSS TOBACCO CESSATION (REFER TO SMARTSET #6342) 1955 DXA Scan 1955 Cologuard 2000 Fecal Occult Blood Test 2000 Sigmoidoscopy 2000 *SPIROMETRY ONCE FOR ASTHMA-ADULT 01/28/2018 COVID-19 Vaccine ( season) 2023 07/10/2021, 10/15/2020, 09/17/2020 Colonoscopy 02/22/2024 02/21/2019, 02/21/2019 Colorectal Cancer Screening 02/22/2024 GFR 07/01/2024 01/13/2024, 10/2022, 11/12/2022, Additional history exists HbA1c 07/01/2024 07/01/2023, 10/27, 10/23/2020, Additional history exists Mammogram 10/06/2024 10/06/2023, 11/28, 12/10/2020, Additional history exists Albumin/Creatinine Ratio 07/01/2026 07/01/2023, [...] Not on filedocumented as of this encounter Procedures Procedure Name Priority Date/Time Associated Diagnosis Comments CHEMISTRY-OUTSIDE Routine 01/13/2024 documented in this encounter Results * CHEMISTRY-OUTSIDE (01/13/2024) Not all results display below - see scan for full detail OUTSIDE LAB (SEE SCANNED REPORT) Comment:SCAN INCLUDES: BMP, TYPE AND SCREEN CREATININE-OUTSID E LAB 1.12 0.6 - 1.2 MG/DL OUTSIDE LAB (SEE SCANNED REPORT) EGFR-OUTSIDE LAB 50.4 ML/MIN OUT SIDE LAB (SEE SCANNED REPORT) POTASSIUM-OUTSIDE LAB 3.8 3.5 - 5.1 MMOL/L OUTSIDE LAB (SEE SCANNED REPORT) GLUCOSE-OUTSIDE LAB 78 70 - 99 MG/DL OUTSIDE LAB (SEE SCANNED REPORT) HOURS FASTING OUTSID E LAB (SEE SCANNED REPORT) TRIGLYCERIDES-OUT SIDE LAB OUTSIDE LAB (SEE SCANNED REPORT) CHOLESTEROL-OUTSI DE LAB OUTSIDE LAB (SEE SCANNED REPORT) HDL-OUTSIDE LAB OUTS JJ LAB (SEE SCANNED REPORT) CHOL/HDL RATIO-OUTSIDE LAB OUTSIDE LA B (SEE SCANNED REPORT) LDL (CALCULATED)-OUTS JJ LAB OUTSIDE LAB (SEE SCANNED REPORT) LDL (DIRECT MEASURE)-OUTSIDE LAB OUTSIDE LAB (SEE SCANNED REPORT) HEMOGLOBIN, [id number] LAB OUTSIDE LAB (SEE SCANNED REPORT) PHOSPHORUS-OUTSID E LAB OUTSIDE LAB (SEE SCANNED REPORT) PTH-OUTSIDE LAB OUTS JJ LAB (SEE SCANNED REPORT) MICROALBUMIN RATIO-OUTSIDE LAB OUTSIDE LA B (SEE SCANNED REPORT) PROTEIN, UA-OUTSIDE LAB OUTSIDE LAB (SEE SCANNED REPORT) HGB OUTSIDE LA B (SEE SCANNED REPORT) 01/13/2024 Herbert Delarosa DO LABORATORY OUTSIDE LAB (SEE SCANNED REPORT) documented in this encounter Care Teams Kiln Burner Helper Relationship Specialty Start Date End Date Rene Pedraza MD [address] [place] [address] PCP - General Family Medicine 10/20/21 documented as of this encounter
--- OUTSIDE RECORDS SUMMARY | 2024-02-04 02:17 | External Medical Summary | Summary of Care ---
Author Name Unknown Organization [facility] Address [address] [place] [address] Phone [phone] Care Team Providers Care Logging Operations Inspector Name Role Phone Rene Pedraza MD Primary Care Provider [phone] Reason for Visit * Reason Comments Pre-op Clearance T11-L4 decompression & fusion, hardware removal L4-L5Dr. Herbert Delarosa [facility] 02/03/24 Encounter Details Date Type Department Care Team (Late st Contact Info) Description 01/30/2024 10:30 AM EDT Office Visit Cardiology, [facility] [address] [facility] [place] [address] Asiya Davies PA-C [address] [facility] [place] [address] Preoperative cardiovascular examination*; Chronic heart failure with preserved ejection fraction (HCC); HTN, goal below 140/80 Allergies Active Allergy Reactions Criticality Noted Date Comments Propoxyphene Nausea/vomiting 01/31/2017 documented as of this encounter (statuses as of 01/30/2024) Medications Medication Sig Dispensed Refills Start Date End Date Status Multiple Vitamins-Minerals (MULTIPLE VITAMINS/WOMENS) Tablet Take 1 Tablet by mouth in the morning. Active Furosemide 40 MG Oral Tablet (Lasix)Indications :Heart failure, diastolic, due to HTN (HCC),Localized edema,Essential hypertension with goal blood pressure less than 140/90 TAKE 1 TABLET BY MOUTH IN THE MORNING AND 1/2 TABLET IN THE AFTERNOON 135 Tablet 3 05/03/2023 Active Albuterol Sulfate (2.5 MG/3ML) 0.083% Inhalation Nebulization Solution (Proventil)Indicat ions:Mild persistent asthma without complication Inhale 1 Vial [...] Oral Tablet Extended Release 24 Hour (toPROL XL)Indications:Hea rt failure, diastolic, due to HTN (HCC),PVC (premature ventricular contraction),Essen tial hypertension with goal blood pressure less than [...] 12/12/2023 Active Valsartan 80 MG Oral Tablet (Diovan)Indication s:HTN, goal below 140/90 TAKE 1 TABLET BY MOUTH EVERY DAY 90 Tablet 1 12/12/2023 Active Albuterol Sulfate HFA 108 (90 Base) MCG/ACT Inhalation Aerosol SolutionIndication s:Mild persistent asthma without complication INHALE 2 PUFFS BY MOUTH 4 TIMES A DAY NEEDED FOR SHORTNESS OF BREATH OR WHEEZING. 18 g 1 12/12/2023 Active Triamcinolone Acetonide 0.1 % External Cream (Aristocort) Apply topically to affected area as needed for Irritation. 30 g 3 12/12/2023 Active LORazepam 0.5 MG Oral Tablet (Ativan)Indication s:Panic attacks Take 1 Tablet by mouth daily [...] Capsule by mouth in the morning. Active Aspirin 81 MG Oral Tablet Take by mouth 1 Tablet in the morning. 90 Tablet 3 04/20/2022 4 Discontinue d(Patient preference/ discontinua tion) Naltrexone HCl 50 MG Oral Tablet (Revia) Take 1/2 tab by mouth once a day for 1 week then take 1/2 tab twice a day (morning & late afternoon) 30 Tablet 4 06/28/2023 4 Discontinue d(Patient preference/ discontinua tion) buPROPion HCl ER (SR) 150 MG Oral Tablet Extended Release 12 Hour (Wellbutrin SR) Take 1 tab by mouth once a day for 1 week then take 1 tab twice a day (morning & late afternoon) 60 Tablet 4 2023 4 Discontinue d(Patient preference/ discontinua tion) methylPREDNISolone 4 MG Oral Tablet Therapy Pack (Medrol Dosepack) follow package directions 21 Tablet 11/08/2023 4 Discontinue d(End of Procedure) diazePAM 5 MG Oral Tablet (Valium) Take 1 Tablet by mouth as needed for Anxiety (prior to MRI - can repeat as needed x1). 2 Tablet 11/08/2023 4 Discontinue d(End of Procedure) Meloxicam 15 MG Oral Tablet (Mobic) TAKE 1 TABLET BY MOUTH IN THE MORNING. FOR PAIN.. 90 Tablet 1 01/25/2024 4 Discontinue d(Patient preference/ discontinua tion) documented as of this encounter (statuses as of 01/30/2024) Active Problems Problem Noted Date Diagnosed Date [...] as of this encounter (statuses as of 01/30/2024) Resolved Problems Problem Noted Date Diagnosed Date [...] 08/31/2019 020 Overview: By sleep study in [place] COPD, moderate 09/07/2017 01/25/2018 Hip pain, left 09/07/2017 01/25/2018 Chronic pain of right ankle 08/03/2017 01/25/2018 Ankle weakness 08/03/2017 01/25/2018 [facility] AIRWAY OBSTRUCT NEC 08/29 documented as of this encounter (statuses as of 01/30/2024) Immunizations Name Administration Dates Next Due COVID-19 mRNA, LNP-s, No Pre serve, 2-Dose Series (Moderna) 07/10/2021,10/15/2020,09/17/2020 Pneumococcal Conjugate Vacci ne, 20-valent ([id number]) 02/02/2023 Pneumococcal Polysaccharide PPV23 (Pneumovax) 01/18/2018 Seasonal [...] Tobacco: Every Day Cigarettes Smokeless Tobacco: Never Tobacco Cessation:Ready to Q uit: Not Asked; Counseling Given: Not Answered Alcohol Use Standard Drinks/Week Comments Yes 0 [...] on file documented as of this encounter Last Filed Vital Signs Vital Sign Reading Time Taken Comments Blood Pressure 114/66 01/30/2024 10:32 AM EDT Pulse 94 01/30/2024 10:32 AM EDT Temperature - - Respiratory Rate 20 01/30/2024 10:3 2 AM EDT Oxygen Saturation - - Inhaled Oxygen Concentration - - Weight 119.9 kg (264 lb 6.4 oz) 024 10:32 AM EDT Height - - Body Mass Index 48.36 11/08/2023 1:59 PM EDT documented in this encounter Progress Notes * Asiya Davies PA-C - 01/30/2024 10:16 AM EDT 01/30/2024 Cardiology Follow Up Primary Nursing Support Worker: Dr. Carrion Cardiac Problems: HTN Diastolic heart failure Obesity Chronic tobacco use HPI: Opal Blanchard is a 68 year old female who presents for preoperative evaluation. She is scheduled for spinal surgery on 02/03/24 at [facility] with Dr. Delarosa. Presents today accompanied by significant other. States she overall feels well, except for back pain. Had fall recently due to leg weakness, denies loss of consciousness. Denies chest pain, palpitations, shortness of breath, edema, PND, orthopnea, lightheadedness, syncope. Compliant with all medications. Smokes 1 ppd. No recent change in activity tolerance. No prior complications with anesthesia. Denies CVA/TIA, DVT/PE. REVIEW OF SYSTEMS: See HPI for pertinent positives. All others negative other than those noted in the HPI. CONSTITUTIONAL: No change in weight, No weakness, No fatigue and No fevers, No sweats or chills. PULMONARY: No cough, sputum, or hemoptysis, No wheezing, No shortness of breath and No recent change in breathing. CARDIOVASCULAR: No chest pain, No dyspnea on exertion, No edema, No palpitations and No syncope. GASTROINTESTINAL: No abdominal pain, No change in bowel habits, No significant heartburn, No nausea, No vomiting, No diarrhea, No constipation, No blood in stools or black tarry stools. No dysphagia. HEMATOLOGIC: No abnormal bleeding and No bruising. NEUROLOGICAL: Normal balance, No headaches and No weakness. Review of patient's allergies indicates: Allergen Reactions Darvon [Propoxyphene] Nausea/vomiting Current Outpatient Medications Medication Sig Dispense Refill Multiple Vitamins-Minerals (MULTIPLE VITAMINS/WOMENS) Tablet Take 1 Tablet by mouth in the morning. Furosemide 40 MG Oral Tablet (Lasix) TAKE 1 TABLET BY MOUTH IN THE MORNING AND 1/2 TABLET IN THE AFTERNOON 135 Tablet 3 Albuterol Sulfate (2.5 MG/3ML) 0.083% Inhalation Nebulization Solution (Proventil) Inhale 1 Vial via nebulizer every 6 hours as needed for Wheezing. 360 mL 11 Atorvastatin Calcium 40 MG Oral Tablet (Lipitor) TAKE 1 TABLET BY MOUTH EVERY DAY 90 Tablet 3 Klor-Con M10 10 MEQ Oral Tablet Extended Release (potassium chloride ER) TAKE 1 TABLET BY MOUTH EVERY DAY IN THE MORNING 90 Tablet 3 Metoprolol Succinate ER 25 MG Oral Tablet Extended Release 24 Hour (toPROL XL) Take 1 Tablet by mouth in the morning. 90 Tablet 3 Dorzolamide HCl-Timolol Mal 2-0.5 % Ophthalmic Solution (Cosopt Ocumeter Plus) INSTILL 1 DROP INTO BOTH EYES IN THE MORNING AND 1 DROP BEFORE BEDTIME. 30 mL 1 DULoxetine HCl 30 MG Oral Capsule Delayed Release Particles (Cymbalta) Take 1 Capsule by mouth in the morning. 90 Capsule 2 Diclofenac Sodium 75 MG Oral Tablet Delayed Release (Voltaren) Take 1 Tablet by mouth in the morning and 1 Tablet before bedtime. Omeprazole 20 MG Oral Capsule Delayed Release (PriLOSEC) TAKE 1 CAPSULE BY MOUTH EVERY MORNING 90 Capsule 1 Valsartan 80 MG Oral Tablet (Diovan) TAKE 1 TABLET BY MOUTH EVERY DAY 90 Tablet 1 Albuterol Sulfate HFA 108 (90 Base) MCG/ACT Inhalation Aerosol Solution INHALE 2 PUFFS BY MOUTH 4 TIMES A DAY NEEDED FOR SHORTNESS OF BREATH OR WHEEZING. 18 g 1 Triamcinolone Acetonide 0.1 % External Cream (Aristocort) Apply topically to affected area as needed for Irritation. 30 g 3 LORazepam 0.5 MG Oral Tablet (Ativan) Take 1 Tablet by mouth daily as needed for Anxiety. 30 Tablet0 traMADol HCl 50 MG Oral Tablet (Ultram) Take 1 Tablet by mouth every 8 hours as needed for Pain, Severe. 45 Tablet 1 DULoxetine HCl 60 MG Oral Capsule Delayed Release Particles (Cymbalta) TAKE 1 CAPSULE BY MOUTH DAILY IN THE MORNING AND 1 BEFORE BEDTIME DO NOT CUT, CRUSH OR CHEW 180 Capsule 1 Spironolactone 25 MG Oral Tablet (Aldactone) TAKE 1 TABLET BY MOUTH EVERY DAY IN THE MORNING 90 Tablet 1 Vitamin D3 Maximum Strength 125 MCG (5000 UT) Oral Capsule (Cholecalciferol) Take 1 Capsule by mouth in the morning. No current facility-administered medications for this visit. Past Medical History: Diagnosis Date Ankle weakness 08/03/2017 Chronic pain of right ankle 08/03/2017 COPD, moderate ([facility]) 09/07/2017 Dyslipidemia 07/04/2023 Hip pain, left 09/07/2017 HTN, goal below 130/80 01/25/2018 Hypertension Prediabetes 10/20/2021 Sleep apnea in adult 08/31/2019 By sleep study in [place] Vulvar cancer ([facility]) 07/05/2023 Family History Problem Relation Name Age of Onset Cancer Grandmother (Maternal) mastectomy - non malignant per pt Breast Cancer Grandmother (Maternal) Hypertension Mother Heart Disorder Mother Social History Socioeconomic History Marital status: Tobacco Use Smoking status: Every Day Current packs/day: 1.00 Types: Cigarettes Smokeless tobacco: Never Vaping Use Vaping status: Never Used Substance and Sexual Activity Alcohol use: Yes Comment: social Drug use: No Sexual activity: Not Currently Social Determinants of Health Food Insecurity: No Food Insecurity (06/07/2019) Hunger Vital Sign Worried About Running Out of Food in the Last Year: Never true Ran Out of Food in the Last Year: Never true OBJECTIVE/PHYSICAL EXAMINATION: BP 114/66 (BP Site: Left Arm, BP Position: Sitting, BP Cuff Size: Large) | Pulse 94 | Resp 20 | Wt 119.9 kg (264 lb 6.4 oz) | LMP 09/12/2000 | BMI 48.36 kg/m | BSA 2.29 m Wt Readings from Last 3 Encounters: 01/30/24 119.9 kg (264 lb 6.4 oz) 11/08/23 120.2 kg (264 lb 14.4 oz) 07/05/23 123.4 kg (272 lb) General: No acute distress. A+Ox3. HEENT: Normocephalic. Atraumatic. PERRL. EOMI. Conjunctiva and sclera clear. NECK: No carotid bruits. No JVD. Carotid upstrokes are brisk. Heart: RRR. S1 and S2 noted. No murmur. No rubs or gallops. PMI non displaced. Lungs: Clear to auscultation. No wheezes. No rhonchi. No rales. Abdomen: Normal bowel sounds. Soft. Nontender. No masses or organomegaly. No abdominal bruits. Extremities: No edema. No clubbing or cyanosis. Pulses: radial=2/4, posterior tibial=2/4, dorsalis pedis = 2/4. NEURO: No focal deficits. PSYCH: Appropriate affect and insight. DATA Labs & Imaging Reviewed Below: EKG 01/13/24 NSR, 70 bpm, nonspecific ST abnormality Echo 10/06/23 The examination is adequate to evaluate the referral indication. The LV wall thickness is mildly increased (concentric). The left ventricular wall motion is normal. The qualitative LV ejection fraction is 55-59% (normal). The left ventricular diastolic function is mildly abnormal (grade I). Mild aortic valve sclerosis without stenosis is present. o 06/2022 Patient had a min HR of 73 bpm, max HR of 153 bpm, and avg HR of 92 bpm. Predominant underlying rhythm was Sinus Rhythm. Isolated SVEs were rare (<1.0%), SVE Couplets were rare (<1.0%), and no SVE Triplets were present. Isolated VEs were occasional (4.8%, 7466), VE Couplets were rare (<1.0%, 12), and no VE Triplets were present. Ventricular Bigeminy and Trigeminy were present. The patient recorded two event markers correlating with sinus rhythm and sinus tachycardia only Impression : Sinus and sinus tachycardia, average rate 92 beats per minute with occasional ventricular ectopy, bigeminy, trigeminy Dobutamine stress echo 05/24/22 The examination is adequate to evaluate the referral indication. STRESS STUDY: The pharmacologic stress echo is negative for inducible ischemia. The baseline EKG reveals sinus rhythm at 93 beats per minute with frequent PVCs in a pattern of ventricular bigeminy. The frequency of ventricular ectopy decreased with pharmacologic stress. An equivocal flat blood pressure response was observed, with noted transient hypotension the post infusion recovery interval. RESTING STUDY: The LV wall thickness is mildly increased (concentric). The qualitative LV ejection fraction is 55-59% (normal). There is no significant valvular pathology. ASSESSMENT/PLAN: 68 year old female 1. Chronic heart failure with preserved ejection fraction (HCC) 2. HTN, goal below 140/80 3. Preoperative cardiovascular examination - feels well on exam today, denies chest pain, SAHNI - euvolemic, weight stable - continue furosemide 60 mg daily, metoprolol succinate 25 mg daily, spironolactone 25 mg daily, valsartan 80 mg daily - heart rate and blood pressure controlled - last echo with normal LVEF, no significant valvular disease - she is scheduled for spine surgery at [facility], discussed she is at moderate risk for perioperative events per Iain Criteria, no further cardiac testing indicated at this time, patient voices understanding and would like to proceed with surgery DISPOSITION: Follow up as scheduled or sooner if symptoms worsen/fail to improve. All questions were answered to the patients satisfaction. Patient advised to report to ED with any and all emergencies. The patient agrees to the above plan and will call with additional questions or concerns. Asiya Davies PA-C Cardiology, [address] [place] [address] I spent a total of 35 minutes on the date of service in preparation, delivery, and documentation ofthe care provided to Opal Blanchard excluding any time spent in the performance of separately billed services. This chart was completed in part utilizing [employer] Speech Voice Recognition Software. Grammatical errors, random word insertions, pronoun errors, and incomplete sentences are an occasional consequence of this system due to software limitations, ambient noise, and hardware issues. Any formal questions or concerns about the content, text, or information contained within the body of this dictation should be directly addressed to the provider for clarification. documented in this encounter Nursing Notes * Elizabeth Pascal CMA - 01/30/2024 10:38 AM EDT Chief Complaint Patient presents with Pre-op Clearance T11-L4 decompression & fusion, hardware removal L4-L5 Dr. Herbert Delarosa [facility] 02/03/24 Examination Room: 3 Name: Opal Blanchard Date of : (1955). Reason for Visit: Pre-op clearance Interim Hospitalization(s): none Problems/Concerns: denies Chest Pain/SOB: Denies CP - occasional "twinge." States SOB at baseline [facility] Discussed: Not applicable My [employer] [facility] is a way you can talk to your provider online through e-mail. Would you like to sign up? I can activate it for you? ALREADY ACTIVE Patient was instructed to not get up on the exam table until directed and assisted by their provider; patient is to remain seated in the chair/ wheelchair/ exam table for fall prevention and safety reasons. Patient is aware to have assistance to step down off exam table with personnel. Patient voiced full comprehension of instructions. documented in this encounter Plan of Treatment Upcoming Encounters Date Type Department Care Team (Late st Contact Info) Description 03/20/2024 5:40 PM EDT Office Visit Family Practice [facility] [address] [place] [address] Rene Pedraza MD [address] [place] [address] 04/06/2024 9:00 AM EDT Office Visit Cardiology, [facility] [address] [place] [address] Marcial Lo PA-C [address] [place] [address] 06/18/2024 11:20 AM EDT Telemedicine Nutrition & Weight Management, [facility] [address] [place] [address] Sarah Roca PA-C [address] [place] [address] Health Maintenance Due Date Last Done Comments [...] as of this encounter Visit Diagnoses Diagnosis Preoperative cardiovascular examination- Primary Pre-operative cardiovascular examination Chronic heart failure with preserved ejection fraction (HCC) HTN, goal below 140/80 Unspecified essential hypertension documented in this encounter Care Teams Logging Operations Inspector Relationship Specialty Start Date End Date Rene Pedraza MD [address] [place] [address] PCP - General Family Medicine 10/20/21 documented as of this encounter
--- OUTSIDE RECORDS SUMMARY | 2024-02-04 02:17 | External Medical Summary | Summary of Care ---
Author Name Unknown Organization [facility] Address [address] [place] [address] Phone [phone] Care Team Providers Care Occupational Therapy Co Director Name Role Phone Rene Pedraza MD Primary Care Provider [phone] Encounter Details Date Type Department Care Team (Late st Contact Info) Description 01/16/2024 Orders Only Outcomes Research Department [address] [place] [address] Luisa Shahid CHRA Primary Data Research Other*[id number] Allergies Active Allergy Reactions Criticality Noted Date [...] 08/31/2019 020 Overview: By sleep study in [place] COPD, moderate 09/07/2017 01/25/2018 Hip pain, left 09/07/2017 01/25/2018 Chronic pain of right ankle 08/03/2017 01/25/2018 Ankle weakness 08/03/2017 01/25/2018 [facility] AIRWAY OBSTRUCT NEC 08/29 documented as of this encounter (statuses as of 01/16/2024) Immunizations Name Administration Dates Next Due COVID-19 mRNA, LNP-s, No Pre serve, 2-Dose Series (Moderna) 07/10/2021,10/15/2020,09/17/2020 Pneumococcal Conjugate Vacci ne, 20-valent ([id number]) 02/02/2023 Pneumococcal Polysaccharide PPV23 (Pneumovax) 01/18/2018 Seasonal [...] PM EDT Office Visit Family Practice [facility] [address] [place] [address] Rene Pedraza MD [address] [place] [address] 04/06/2024 9:00 AM EDT Office Visit Cardiology, [facility] [address] [place] [address] Marcial Lo PA-C [address] [place] [address] 06/18/2024 11:20 AM EDT Telemedicine Nutrition & Weight Management, [facility] [address] [place] [address] Sarah Roca PA-C [address] [place] [address] Scheduled Orders Name Type Priority Associated Diagnoses Orde r Schedule MYCODE SUBSEQUENT ADULT Lab Routine MyCode Research Other*[id number] Every 6 Months for 2 Occurrences starting 01/16/2024 until 02/04/2025 Health Maintenance Due Date Last Done Comments DISCUSS TOBACCO CESSATION (REFER TO SMARTSET #[id number]) 1955 DXA Scan 1955 Cologuard 2000 Fecal Occult Blood Test 2000 Sigmoidoscopy 2000 *SPIROMETRY ONCE FOR ASTHMA-ADULT 01/28/2018 COVID-19 Vaccine ( season) 2023 07/10/2021, 10/15/2020, 09/17/2020 Colonoscopy 02/22/2024 02/21/2019, 02/21/2019 Colorectal Cancer Screening 02/22/2024 GFR 07/01/2024 07/01/2023, 10/27, 04/14/2022, Additional history exists HbA1c 07/01/2024 07/01/2023, 10/27, [...] as of this encounter Visit Diagnoses Diagnosis My[employer] Research Other*[id number] documented in this encounter Care Teams Occupational Therapy Co Director Relationship Specialty Start Date End Date Rene Pedraza MD [address] [place] [address] PCP - General Family Medicine 10/20/21 documented as of this encounter
--- OUTSIDE RECORDS SUMMARY | 2024-02-04 02:17 | External Medical Summary | Summary of Care ---
Author Name Unknown Organization [facility] Address [address] [place] [address] Phone [phone] Care Team Providers Care Commodity Merchant Name Role Phone Rene Pedraza MD Primary Care Provider [phone] Encounter Details Date Type Department Care Team (Late st Contact Info) Description 01/16/2024 Orders Only Family Practice [facility] [address] [place] [address] Rene Pedraza MD [address] [place] [address] Allergies Active Allergy Reactions Criticality Noted Date [...] 08/31/2019 020 Overview: By sleep study in [place] COPD, moderate 09/07/2017 01/25/2018 Hip pain, left 09/07/2017 01/25/2018 Chronic pain of right ankle 08/03/2017 01/25/2018 Ankle weakness 08/03/2017 01/25/2018 CHR AIRWAY OBSTRUCT NEC 08/29 documented as of this encounter (statuses as of 01/16/2024) Immunizations Name Administration Dates Next Due COVID-19 mRNA, LNP-s, No Pre serve, 2-Dose Series (Moderna) 07/10/2021,10/15/2020,09/17/2020 Pneumococcal Conjugate Vacci ne, 20-valent ([id number]) 02/02/2023 Pneumococcal Polysaccharide PPV23 (Pneumovax) 01/18/2018 Seasonal [...] 5:40 PM EDT Office Visit Family Practice [facility] [address] [place] [address] Rene Pedraza MD [address] [place] [address] 04/06/2024 9:00 AM EDT Office Visit Cardiology, [facility] [address] [place] [address] Marcial Lo PA-C [address] [place] [address] 06/18/2024 11:20 AM EDT Telemedicine Nutrition & Weight Management, [facility] [address] [place] [address] Sarah Roca PA-C [address] [place] [address] Health Maintenance Due Date Last Done Comments DISCUSS TOBACCO CESSATION (REFER TO SMARTSET #[id number]) 1955 DXA Scan 1955 Cologuard 2000 Fecal [...] detail OUTSIDE LAB (SEE SCANNED REPORT) Comment:SCAN INCLUDES - PT, INR, CBCD, UA CREATININE-OUTSI DE LAB OUTSIDE LAB (SEE SCANNED REPORT) EGFR-OUTSIDE LAB OUT SIDE LAB (SEE SCANNED REPORT) POTASSIUM-OUTSID E LAB OUTSIDE LAB (SEE SCANNED REPORT) GLUCOSE-OUTSIDE LAB OUTSIDE LAB (SEE SCANNED REPORT) HOURS FASTING OUTSID E LAB (SEE SCANNED REPORT) TRIGLYCERIDES-OU TSIDE LAB OUTSIDE LAB (SEE SCANNED REPORT) CHOLESTEROL-OUTS JJ LAB OUTSIDE LAB (SEE SCANNED REPORT) HDL-OUTSIDE LAB OUTS JJ LAB (SEE SCANNED REPORT) CHOL/HDL RATIO-OUTSIDE LAB OUTSIDE LAB (SEE SCANNED REPORT) LDL (CALCULATED)-OUT SIDE LAB OUTSIDE LAB (SEE SCANNED REPORT) LDL (DIRECT MEASURE)-OUTSIDE LAB OUTSIDE LAB (SEE SCANNED REPORT) HEMOGLOBIN, [id number] LAB OUTSIDE LAB (SEE SCANNED REPORT) PHOSPHORUS-OUTSI DE LAB OUTSIDE LAB (SEE SCANNED REPORT) PTH-OUTSIDE LAB OUTS JJ LAB (SEE SCANNED REPORT) MICROALBUMIN RATIO-OUTSIDE LAB OUTSIDE LAB (SEE SCANNED REPORT) PROTEIN, UA-OUTSIDE LAB NEGATIVE NEGATIVE OUTSIDE LAB (SEE SCANNED REPORT) HGB 15.4 12.0 - 16.0 G/DL OUTSIDE LAB (SEE SCANNED REPORT) 01/13/2024 Herbert Delarosa DO LABORATORY OUTSIDE LAB (SEE SCANNED REPORT) documented in this encounter Care Teams Commodity Merchant Relationship Specialty Start Date End Date Rene Pedraza MD [address] [place] [address] PCP - General Family Medicine 10/20/21 documented as of this encounter
--- OUTSIDE RECORDS SUMMARY | 2024-02-04 02:17 | External Medical Summary | Summary of Care ---
Author Name Unknown Organization [facility] Address [address] [place] [address] Phone [phone] Care Team Providers Care Lav Crewman Name Role Phone Thaddeus Molina MD Primary Care Provider [phone] Reason for Visit * Reason Comments eRx-Medication Refill Encounter Details Date Type Department Care Team (Late st Contact Info) Description 01/23/2024 Refill Family Practice [facility] [address] [facility] [place] [address] Thaddeus Molina MD [address] [facility] [place] [address] Allergies Active Allergy Reactions Criticality Noted Date Comments Propoxyphene Nausea/vomiting 01/31/2017 documented as of this encounter (statuses as of 01/25/2024) Medications Medication Sig Dispensed Refills Start Date End Date Status Multiple Vitamins-Minerals (MULTIPLE VITAMINS/WOMENS) Tablet Take 1 Tablet by mouth in the morning. Active Aspirin 81 MG Oral Tablet Take by mouth 1 Tablet in the morning. 90 Tablet 3 2 Active Furosemide 40 MG Oral Tablet (Lasix)Indication s:Heart failure, diastolic, due to HTN (HCC),Localized edema,Essential hypertension with goal blood pressure less than 140/90 TAKE 1 TABLET BY MOUTH IN THE MORNING AND 1/2 TABLET IN THE AFTERNOON 135 Tablet 3 3 Active Albuterol Sulfate (2.5 MG/3ML) 0.083% Inhalation Nebulization Solution (Proventil)Indica tions:Mild persistent asthma without complication Inhale 1 Vial via nebulizer every 6 hours as needed for Wheezing. 360 mL 11 3 Active Naltrexone HCl 50 MG Oral Tablet (Revia) Take 1/2 tab by mouth once a day for 1 week then take 1/2 tab twice a day (morning & late afternoon) 30 Tablet 4 3 Active Additional Information Patient not taking.Reported on 11/08/2023 Atorvastatin Calcium 40 MG Oral Tablet (Lipitor) TAKE 1 TABLET BY MOUTH EVERY DAY 90 Tablet 3 3 Active Klor-Con M10 10 MEQ Oral Tablet Extended Release (potassium chloride ER) TAKE 1 TABLET BY MOUTH EVERY DAY IN THE MORNING 90 Tablet 3 3 Active Metoprolol Succinate ER 25 MG Oral Tablet Extended Release 24 Hour (toPROL XL)Indications:He art failure, diastolic, due to HTN (HCC),PVC (premature ventricular contraction),Esse ntial hypertension with goal blood pressure less than 140/90 Take 1 Tablet by mouth in the morning. 90 Tablet 3 3 Active Dorzolamide HCl-Timolol Mal 2-0.5 % Ophthalmic Solution (Cosopt Ocumeter Plus) INSTILL 1 DROP INTO BOTH EYES IN THE MORNING AND 1 DROP BEFORE BEDTIME. 30 mL 1 4 Active DULoxetine HCl 30 MG Oral Capsule Delayed Release Particles (Cymbalta) Take 1 Capsule by mouth in the morning. 90 Capsule 2 4 Active buPROPion HCl ER (SR) 150 MG Oral Tablet Extended Release 12 Hour (Wellbutrin SR) Take 1 tab by mouth once a day for 1 week then take 1 tab twice a day (morning & late afternoon) 60 Tablet 4 4 Active Diclofenac Sodium 75 MG Oral Tablet Delayed Release (Voltaren) Take 1 Tablet by mouth in the morning and 1 Tablet before bedtime. 4 Active methylPREDNISolon e 4 MG Oral Tablet Therapy Pack (Medrol Dosepack) follow package directions 21 Tablet 4 Active diazePAM 5 MG Oral Tablet (Valium) Take 1 Tablet by mouth as needed for Anxiety (prior to MRI - can repeat as needed x1). 2 Tablet 4 Active Omeprazole 20 MG Oral Capsule Delayed Release (PriLOSEC) TAKE 1 CAPSULE BY MOUTH EVERY MORNING 90 Capsule 1 4 Active Valsartan 80 MG Oral Tablet (Diovan)Indicatio ns:HTN, goal below 140/90 TAKE 1 TABLET BY MOUTH EVERY DAY 90 Tablet 1 4 Active Albuterol Sulfate HFA 108 (90 Base) MCG/ACT Inhalation Aerosol SolutionIndicatio ns:Mild persistent asthma without complication INHALE 2 PUFFS BY MOUTH 4 TIMES A DAY NEEDED FOR SHORTNESS OF BREATH OR WHEEZING. 18 g 1 4 Active Triamcinolone Acetonide 0.1 % External Cream (Aristocort) Apply topically to affected area as needed for Irritation. 30 g 3 4 Active LORazepam 0.5 MG Oral Tablet (Ativan)Indicatio ns:Panic attacks Take 1 Tablet by mouth daily as needed for Anxiety. 30 Tablet 4 Active traMADol HCl 50 MG Oral Tablet (Ultram) Take 1 Tablet by mouth every 8 hours as needed for Pain, Severe. 45 Tablet 1 4 Active DULoxetine HCl 60 MG Oral Capsule Delayed Release Particles (Cymbalta) TAKE 1 CAPSULE BY MOUTH DAILY IN THE MORNING AND 1 BEFORE BEDTIME DO NOT CUT, CRUSH OR CHEW 180 Capsule 1 4 Active Spironolactone 25 MG Oral Tablet (Aldactone) TAKE 1 TABLET BY MOUTH EVERY DAY IN THE MORNING 90 Tablet 1 4 Active Meloxicam 15 MG Oral Tablet (Mobic) TAKE 1 TABLET BY MOUTH IN THE MORNING. FOR PAIN.. 90 Tablet 1 4 Active Meloxicam 15 MG Oral Tablet Take 1 Tablet by mouth in the morning. for pain.. 90 Tablet 3 3 01/25/20 24 Discontinued DULoxetine HCl 60 MG Oral Capsule Delayed Release Particles (Cymbalta) TAKE 1 CAPSULE BY MOUTH DAILY IN THE MORNING AND 1 BEFORE BEDTIME DO NOT CUT, CRUSH OR CHEW 180 Capsule 2 3 01/25/20 24 Discontinued Spironolactone 25 MG Oral Tablet (Aldactone) TAKE 1 TABLET BY MOUTH EVERY DAY IN THE MORNING 90 Tablet 1 3 01/25/20 24 Discontinued documented as of this encounter (statuses as of 01/25/2024) Active Problems Problem Noted Date Diagnosed Date [...] as of this encounter (statuses as of 01/25/2024) Resolved Problems Problem Noted Date Diagnosed Date [...] 10/20/2021 05/13/2022 Sleep apnea in adult 08/31/2019 07/21/2 020 Overview: By sleep study in [place] COPD, moderate 09/07/2017 01/25/2018 Hip pain, left 09/07/2017 01/25/2018 Chronic pain of right ankle 08/03/2017 01/25/2018 Ankle weakness 08/03/2017 01/25/2018 CHR AIRWAY OBSTRUCT NEC 08/29 documented as of this encounter (statuses as of 01/25/2024) Immunizations Name Administration Dates Next Due COVID-19 mRNA, LNP-s, No Pre serve, 2-Dose Series (Moderna) 07/10/2021,10/15/2020,09/17/2020 Pneumococcal Conjugate Vacci ne, 20-valent ([id number]) 02/02/2023 Pneumococcal Polysaccharide PPV23 (Pneumovax) 01/18/2018 Seasonal [...] encounter Miscellaneous Notes * Telephone Encounter - Isela Wiggins [facility] - 01/25/2024 10:23 AM EDTSigned Prescriptions: Disp Refills DULoxetine HCl 60 MG Oral Capsule Delayed *180 Ca*1 Sig: TAKE 1 CAPSULE BY MOUTH DAILY IN THE MORNING AND 1 BEFORE BEDTIME DO NOT CUT, CRUSH OR CHEWAuthorizing Provider: THADDEUS MOLINA User: ISELA WIGGINS Spironolactone 25 MG Oral Tablet (Aldacton*90 Tab*1 Sig: TAKE 1 TABLET BY MOUTH EVERY DAY IN THE MORNINGAuthorizing Provider: MILLIE MOLINA User: ISELA WIGGINS Meloxicam 15 MG Oral Tablet (Mobic) 90 Tab*1 Sig: TAKE 1 TABLET BY MOUTH IN THE MORNING. FOR PAIN..Authorizing Provider: THADDEUS MOLINA User: ISELA WIGGINS documented in this encounter Plan of Treatment Upcoming Encounters Date Type Department Care Team (Late st Contact Info) Description 03/20/2024 5:40 PM EDT Office Visit Family Practice [facility] [address] [place] [address] Thaddeus Molina MD [address] [place] [address] 04/06/2024 9:00 AM EDT Office Visit Cardiology, [facility] [address] [place] [address] Marcial Lo PA-C [address] [place] [address] 06/18/2024 11:20 AM EDT Telemedicine Nutrition & Weight Management, [facility] [address] [place] [address] Sarah Roca PA-C [address] [place] [address] Health Maintenance Due Date Last Done Comments DISCUSS TOBACCO CESSATION (REFER TO SMARTSET #[id number]) 1955 DXA Scan 1955 Cologuard 2000 Fecal [...] filedocumented as of this encounter Care Teams Lav Crewman Relationship Specialty Start Date End Date Thaddeus Molina MD [address] [place] [address] PCP - General Family Medicine 10/20/21 documented as of this encounter
--- OUTSIDE RECORDS SUMMARY | 2024-02-04 02:17 | External Medical Summary | Summary of Care ---
Author Name Unknown Organization [facility] Address [address] [place] [address] Phone [phone] Care Team Providers Care Salvage Engineer Name Role Phone Rene Pedraza MD Primary Care Provider [phone] Encounter Details Date Type Department Care Team (Late st Contact Info) Description 01/19/2024 Orders Only Family Practice [facility] [address] [place] [address] Rene Pedraza MD [address] [place] [address] Allergies Active Allergy Reactions Criticality Noted Date Comments Propoxyphene Nausea/vomiting 01/31/2017 documented as of this encounter (statuses as of 01/19/2024) Medications Medication Sig Dispensed Refills Start Date [...] as of this encounter (statuses as of 01/19/2024) Active Problems Problem Noted Date Diagnosed Date [...] as of this encounter (statuses as of 01/19/2024) Resolved Problems Problem Noted Date Diagnosed Date [...] 08/31/2019 020 Overview: By sleep study in [place] COPD, moderate 09/07/2017 01/25/2018 Hip pain, left 09/07/2017 01/25/2018 Chronic pain of right ankle 08/03/2017 01/25/2018 Ankle weakness 08/03/2017 01/25/2018 CHR AIRWAY OBSTRUCT NEC 08/29 documented as of this encounter (statuses as of 01/19/2024) Immunizations Name Administration Dates Next Due COVID-19 mRNA, LNP-s, No Pre serve, 2-Dose Series (Moderna) 07/10/2021,10/15/2020,09/17/2020 Pneumococcal Conjugate Vacci ne, 20-valent ([id number]) 02/02/2023 Pneumococcal Polysaccharide PPV23 (Pneumovax) 01/18/2018 Seasonal [...] 5:40 PM EDT Office Visit Family Practice [facility] [address] [place] [address] Rene Pedraza MD [address] [place] [address] 04/06/2024 9:00 AM EDT Office Visit Cardiology, [facility] [address] [place] [address] Marcial Lo PA-C [address] [place] [address] 06/18/2024 11:20 AM EDT Telemedicine Nutrition & Weight Management, [facility] [address] [place] [address] Sarah Roca PA-C [address] [place] [address] Health Maintenance Due Date Last Done Comments DISCUSS TOBACCO CESSATION (REFER TO SMARTSET #[id number]) 1955 DXA Scan 1955 Cologuard 2000 Fecal [...] Procedure Name Priority Date/Time Associated Diagnosis Comments XR CHEST 2 VIEWS Routine 01/13/2024 documented in this encounter Results * XR CHEST 2 VIEWS (01/13/2024) Anatomical Region Laterality Modality Chest Other 01/13/2024 Herbert Delarosa DO RADIOLOGY ( RAD GENERAL) documented in this encounter Care Teams Salvage Engineer Relationship Specialty Start Date End Date Rene Pedraza MD [address] [place] [address] PCP - General Family Medicine 10/20/21 documented as of this encounter
--- OUTSIDE RECORDS SUMMARY | 2024-02-04 02:17 | External Medical Summary | Summary of Care ---
Author Name Unknown Organization [facility] Address [address] [place] [address] Phone [phone] Care Team Providers Care Senior Payroll Administrator Name Role Phone Rene Pedraza MD Primary Care Provider [phone] Encounter Details Date Type Department Care Team (Late st Contact Info) Description 01/13/2024 Result Scan Unspecified Department <No scans attached> Allergies Active Allergy Reactions Criticality Noted Date [...] 08/31/2019 020 Overview: By sleep study in [place] COPD, moderate 09/07/2017 01/25/2018 Hip pain, left 09/07/2017 01/25/2018 Chronic pain of right ankle 08/03/2017 01/25/2018 Ankle weakness 08/03/2017 01/25/2018 CHR AIRWAY OBSTRUCT NEC 08/29 documented as of this encounter (statuses as of 01/19/2024) Immunizations Name Administration Dates Next Due COVID-19 mRNA, LNP-s, No Pre serve, 2-Dose Series (Moderna) 07/10/2021,10/15/2020,09/17/2020 Pneumococcal Conjugate Vacci ne, 20-valent ([id number]) 02/02/2023 Pneumococcal Polysaccharide PPV23 (Pneumovax) 01/18/2018 Seasonal [...] 5:40 PM EDT Office Visit Family Practice [facility] [address] [place] [address] Rene Pedraza MD [address] [place] [address] 04/06/2024 9:00 AM EDT Office Visit Cardiology, [facility] [address] [place] [address] Marcial Lo PA-C [address] [place] [address] 06/18/2024 11:20 AM EDT Telemedicine Nutrition & Weight Management, [facility] [address] [place] [address] Sarah Roca PA-C [address] [place] [address] Health Maintenance Due Date Last Done Comments DISCUSS TOBACCO CESSATION (REFER TO SMARTSET #[id number]) 1955 DXA Scan 1955 Cologuard 2000 Fecal [...] Procedure Name Priority Date/Time Associated Diagnosis Comments EKG SCANNED RESULT 01/13/2024 documented in this encounter Results * EKG SCANNED RESULT (01/13/2024) 01/13/2024 No Physician Data Unknown EKG documented in this encounter Care Teams Senior Payroll Administrator Relationship Specialty Start Date End Date Rene Pedraza MD [address] [place] [address] PCP - General Family Medicine 10/20/21 documented as of this encounter
--- OUTSIDE RECORDS SUMMARY | 2024-02-04 02:17 | External Medical Summary | Summary of Care ---
Author Name Unknown Organization [facility] Address [address] [place] [address] Phone [phone] Care Team Providers Care Real Estate Executive Assistant Name Role Phone Rene Pedraza MD Primary Care Provider [phone] Reason for Visit * Reason Onset Date Comments Pre-op Clearance 01/18/2024 Encounter Details Date Type Department Care Team (Late st Contact Info) Description 01/18/2024 Telephone Cardiology, [facility] [address] [place] [address] Petar Carrion, DO [address] [place] [address] Pre-op Clearance Allergies Active Allergy Reactions Criticality Noted Date [...] Pain, Severe. 45 Tablet 1 4 Active Meloxicam 15 MG [...] 08/31/2019 020 Overview: By sleep study in [place] COPD, moderate 09/07/2017 01/25/2018 Hip pain, left 09/07/2017 01/25/2018 Chronic pain of right ankle 08/03/2017 01/25/2018 Ankle weakness 08/03/2017 01/25/2018 CHR AIRWAY OBSTRUCT NEC 08/29 documented as of this encounter (statuses as of 01/25/2024) Immunizations Name Administration Dates Next Due COVID-19 mRNA, LNP-s, No Pre serve, 2-Dose Series (Moderna) 07/10/2021,10/15/2020,09/17/2020 Pneumococcal Conjugate Vacci ne, 20-valent ([id number]) 02/02/2023 Pneumococcal Polysaccharide PPV23 (Pneumovax) 01/18/2018 Seasonal [...] encounter Miscellaneous Notes * Telephone Encounter - Juan Anderson OSA - 01/25/2024 12:26 PM EDT Patient has been called and is setup with Asiya Davies on: Tuesday Arrive by 10:15 AM Appt at 10:30 AM (30 min) Patient is aware of the date and time. * Telephone Encounter - Elizabeth Pascal CMA - 01/18/2024 2:20 PM EDT Faxed [place] [facility] Herbert Delarosa. Patient scheduled for T11-L4 decompression & fusion, hardware removal L4-L5 on 02/03/24 at [facility]. [facility] [place] cardiac risk stratification prior to surgery. Please assist with scheduling. Please fax all correspondence to [facility] at & [facility] at . documented in this encounter Plan of Treatment Upcoming Encounters Date Type Department Care Team (Late st Contact Info) Description 01/30/2024 10:30 AM EDT Office Visit Cardiology, [facility] [address] [place] [address] Asiya Davies PA-C [address] [place] [address] [place] [address] 03/20/2024 5:40 PM EDT Office Visit Family Practice [facility] [address] [place] [address] Rene Pedraza MD [address] [place] [address] 04/06/2024 9:00 AM EDT Office Visit Cardiology, [facility] [address] [place] [address] Marcial Lo PA-C [address] [place] [address] 06/18/2024 11:20 AM EDT Telemedicine Nutrition & Weight Management, [facility] [address] [place] [address] Sarah Roca PA-C [address] [place] [address] Health Maintenance Due Date Last Done Comments DISCUSS TOBACCO CESSATION (REFER TO SMARTSET #1413) 1955 DXA Scan 1955 Cologuard 2000 Fecal [...] filedocumented as of this encounter Care Teams Real Estate Executive Assistant Relationship Specialty Start Date End Date Rene Pedraza MD [address] [place] [address] PCP - General Family Medicine 10/20/21 documented as of this encounter
[2024-02-04] MEDS: PROMETHAZINE HCL 12.5 MG in SODIUM CHLORIDE 0.9% 50 ML IV PRN (03:07)
[2024-02-04] MEDS: POLYETHYLENE (MIRALAX) 17 GM PACK PO SCH (05:49)
[2024-02-04 07:07] LABS: BUN Creatinine Ratio 17.9 (10-20); Calcium 8.2 mg/dl (8.6-10.3); Creatinine Clr Calc Pharmacy 79.6 ml/min; Est GFR (African American) 82.8 ml/min; Est GFR (Non-African American) 71.4 ml/min
[2024-02-04 07:19] LABS: Estimated Average Glucose 117 mg/dl; Hemoglobin A1C 5.7 % (4.5-5.6)
[2024-02-04 07:38] LABS: Hematocrit (blood only) 31.6 % (37.0-47.0); Hemoglobin 11.1 g/dl (12.0-16.0); Mean Corpuscular Hemoglobin 31.9 pg (25.0-34.0); Mean Corpuscular Hgb Conc 35.1 g/dL (32.0-36.0); Mean Corpuscular Volume 90.8 fL (80.0-100.0); Mean Platelet Volume 11.3 fL (9.4-12.4); Platelet Count 273 K/uL (130-400); RDW Coefficient of Variation 12.5 % (11.5-14.5); RDW Standard Deviation 40.9 fL (36.4-46.3); Red Blood Count 3.48 M/uL (4.20-5.40); White Blood Count 18.97 K/ul (4.8-10.8)
[2024-02-04 07:39] LABS: Basophils # (auto) 0.03 K/uL (0.00-0.20); Basophils % (auto) 0.2 %; Immature Granulocytes # (auto) 0.09 K/uL (0.01-0.20); Immature Granulocytes % (auto) 0.5 %; Lymphocytes # (auto) 1.12 K/uL (1.20-3.40); Lymphocytes % (auto) 5.9 %; Monocytes # (auto) 1.07 K/uL (0.11-0.59); Monocytes % (auto) 5.6 %; Neutrophils # (auto) 16.66 K/uL (1.40-6.50); Neutrophils % (auto) 87.8 %; RBC Morphology Unremarkable
[2024-02-04] MEDS: ACETAMINOPHEN 1,000 MG/100 ML VIAL IV PRN (08:45)
[2024-02-04] MEDS: VALSARTAN 80 MG TAB PO SCH (08:50)
[2024-02-04] MEDS: MULTIVITAMIN TAB PO SCH (08:50)
[2024-02-04] MEDS: METOPROLOL SUCC 25MG EXT REL TAB PO SCH (08:50)
[2024-02-04] MEDS: PANTOprazole 40 MG TAB PO SCH (08:50)
[2024-02-04] MEDS: dexAMETHasone 6 MG in SYRINGE 0 ML IV SCH (08:50)
[2024-02-04] MEDS ORDERED: FUROSEMIDE 40 MG TAB PO SCH (09:00)
[2024-02-04] MEDS ORDERED: SPIRONOLACTONE 25 MG TAB PO SCH (09:00)
[2024-02-04] MEDS ORDERED: buPROPion XL 150 MG TABCR PO SCH (09:00)
[2024-02-04] MEDS ORDERED: POTASSIUM CHLORIDE 10 MEQ TABCR PO SCH (09:00)
[2024-02-04] MEDS ORDERED: DULoxetine HCL 60 MG CAP PO SCH (09:00)
--- NOTE | 2024-02-04 10:05 | Orthopedic Progress Note ---
Date of Service February 04, 2024 Assessment & Plan (1) Neurogenic claudication due to lumbar spinal stenosis: Plan: This time initiate physical therapy monitor SERG output. Determine if she is a rehab candidate versus discharge home most likely Tuesday. Admission and Anticipated Discharge Date Admission Date: February 03, 2024 Subjective Back pain controlled leg symptoms improved Physical Exam Physical Exam: Patient is currently in bed. She is comfortable. Is good strength testing. Results & Data Vital Signs (Past 12 Hours) Vital Signs Temp Pulse Pulse Resp BP Pulse Ox O2 Del Method 02/04/24 07:25 37.0 C 101 H 16 123/72 95 Nasal Cannula 02/04/24 02:46 36.5 C 92 H 16 136/81 92 Nasal Cannula 02/03/24 23:32 36.6 C 96 H 16 128/78 93 CPAP 02/03/24 23:27 95 H 12 93 O2 Flow Rate 02/04/24 07:25 2 02/04/24 02:46 2 02/03/24 23:32 2 02/03/24 23:27 1 Queries Orthopedic Spine Acute Posthemorrhagic Anemia: Yes Obesity: Yes
--- NOTE | 2024-02-04 13:41 | Hospitalist Progress Note ---
Date of Service February 04, 2024 Assessment & Plan (1) S/P spinal surgery: (2) Neurogenic claudication due to lumbar spinal stenosis: Plan: S/P removal posterior instrumentation L4-L5, decompression & fusion T11-L4 by Dr Delarosa on 02/03/2024 [id number]#[id number] Pain is reasonably controlled with current medications Management as per Ortho PT/OT as appropriate DVT prophylaxis per ortho Incentive spirometry Clinically stable with unremarkable labs Will monitor CBC and PRP (3) HTN (hypertension): Plan: BP stable Continue valsartan, metoprolol succinate with holding parameters Blood pressure remains on the lower side at 103/63 (4) Chronic heart failure with preserved ejection fraction: Plan: 10/06/23 Echo: EF: 55-59%, grade I diastolic dysfunction, mild aortic sclerosis without stenosis Appears euvolemic Hold hold Lasix and spironolactone, KCl supplement and and reassess volume status tomorrow Continue metoprolol succinate, valsartan with holding parameters No signs and or symptoms of fluid overload or shortness of breath (5) Chronic obstructive pulmonary disease: Plan: No sign acute exacerbation Chronic clear productive cough at baseline and intermittent wheezing. Denies increased cough or sputum production. Reports prior history of being on daily maintenance inhaler however reports insurance and affordability issues so uses albuterol TID as "preventative" Continue albuterol prn No wheezing and no shortness of breath (6) Anxiety and depression: Plan: Continue home medications (7) SHAN (obstructive sleep apnea): Plan: CPAP HS (8) Prediabetes: Plan: A1c: 6.0 on 07/01/2023 Diet controlled Monitor glucose on am labs A1c in AM (9) Tobacco use: Plan: Smoking cessation encouraged Nicotine patch DVT Prophylaxis SCDs per ortho Disposition per primary service Follows with Dr Pedraza for routine care Admission and Anticipated Discharge Date Admission Date: February 03, 2024 Subjective 02/04/2024 The patient was seen and examined in medical floor She is status post T11-L4 decompression and fusion Minimal pain at the back Numbness in the legs are better Has been getting physical therapy and denies any other significant symptoms Review of Systems Review of Systems: All systems reviewed and are unremarkable except as noted below Physical Exam Physical Exam: Sitting on a chair without any acute distress Constitutional: well developed, well nourished and + obese; not ill appearing Eyes: PERRL, conjunctivae normal, anicteric sclerae ENMT: external ear and nose normal, oropharynx normal Neck: trachea midline, no thyromegaly Respiratory: no respiratory distress Auscultation: lungs clear to auscultation bilaterally Cardiovascular: Rate/Rhythm: regular rate and regular rhythm; not tachycardic Heart Sounds: normal S1 and normal S2; no murmur Extremities: + edema (Trace edema bilaterally) Gastrointestinal (Abdomen): Inspection/Auscultation: + abdomen distended and normal bowel sounds Percussion/Palpation: abdomen soft; abdomen nontender Musculoskeletal: Back pain with tenderness. No acute arthritis involving any of the joint Neurologic: normal touch/pain/proprioception and moves all extremities; no focal motor deficits Psychiatric: A+Ox3, euthymic affect Lymphatic: no cervical or axillary lymphadenopathy Results & Data Results & Data Vital Signs (Past 12 Hours) Vital Signs Temp Pulse Resp BP Pulse Ox O2 Del Method O2 Flow Rate 02/04/24 11:19 36.9 C 94 H 18 103/63 93 Room Air 02/04/24 08:00 Nasal Cannula 2 02/04/24 07:25 37.0 C 101 H 16 123/72 95 Nasal Cannula 2 02/04/24 02:46 36.5 C 92 H 16 136/81 92 Nasal Cannula 2 Laboratory Results Short CBC 02/04/24 Range/Units 06:30 WBC 18.97 H (4.8-10.8) K/ul Hgb 11.1 L (12.0-16.0) g/dl Hct 31.6 L (37.0-47.0) % Plt Count 273 (130-400) K/uL BMP 02/04/24 06:30 Sodium 140 Potassium 4.0 Chloride 102 Carbon Dioxide 29 BUN 15 Creatinine 0.84 Glucose 155 H Calcium 8.2 L Medications Administered Current Inpatient Medications Acetaminophen (Acetaminophen 500 Mg Tab) 1,000 mg PO Q8H PRN PRN Reason: MILD Pain Scale 1,2,3 & Pre PT Stop: 03/04/24 17:37 Al Hydrox/Mg Hydrox/Simethicone (Aluminum/Magnesium Susp 30 Ml Udc) 30 ml PO Q6H PRN PRN Reason: Dyspepsia Stop: 03/04/24 17:37 Albuterol (Albuterol Hfa 8 Gm Inhaler) 2 puffs INH QID PRN PRN Reason: sob Stop: 03/04/24 17:37 Atorvastatin Calcium (Atorvastatin 40 Mg Tab) 40 mg PO HS [facility] Stop: 03/04/24 20:59 Last Admin: 02/03/24 20:56 Dose: 40 mg Bisacodyl (Bisacodyl 10 Mg Supp) 10 mg [place] DAILY PRN PRN Reason: Constipation Stop: 03/04/24 17:37 Diphenhydramine HCl (Diphenhydramine Capsule 25 Mg Cap) 25 mg PO Q6H PRN PRN Reason: Allergic Rhinitis/Insomnia Stop: 03/04/24 17:37 Duloxetine HCl (Duloxetine Hcl 30 Mg Cap) 30 mg PO PM [facility] Stop: 03/04/24 20:59 Last Admin: 02/03/24 20:57 Dose: 30 mg Duloxetine HCl (Duloxetine Hcl 60 Mg Cap) 60 mg PO BID [facility] Stop: 03/04/24 20:59 Last Admin: 02/04/24 08:50 Dose: 60 mg Famotidine (Famotidine 20 Mg Tab) 20 mg PO Q12H PRN PRN Reason: Dyspepsia Stop: 03/04/24 17:37 Hydromorphone HCl (Hydromorphone Inj 0.5 Mg/0.5 Ml Syr) 0.5 mg IV Q3H PRN PRN Reason: MODERATE Pain (Scale 4,5,6) & Pre PT Stop: 02/17/24 17:37 Last Admin: 02/04/24 05:54 Dose: 0.5 mg Hydromorphone HCl (Hydromorphone Inj 1 Mg/Ml Syringe) 1 mg IV Q3H PRN PRN Reason: SEVERE Pain (Scale 7,8,9,10) Stop: 02/17/24 17:37 Last Admin: 02/04/24 03:03 Dose: 1 mg Hydroxyzine HCl (Hydroxyzine Hcl 25 Mg Tab) 25 mg PO Q8H PRN PRN Reason: Anxiety Stop: 03/04/24 17:37 Promethazine HCl 12.5 mg/ (Sodium Chloride) 50.5 mls @ 202 mls/hr IV Q6H PRN PRN Reason: Nausea &/or Vomiting Stop: 03/04/24 17:37 Last Infusion: 02/04/24 04:37 Dose: Infused Acetaminophen (Ofirmev) 1,000 mg in 100 mls @ 400 mls/hr IV Q8H PRN PRN Reason: Pain Rating 1-3 & Pre PT Stop: 02/04/24 17:38 Last Infusion: 02/04/24 09:09 Dose: Infused Lorazepam 0.5 mg/ Syringe 0.5 mls @ 2 mls/min IV Q8H PRN; Protocol PRN Reason: Sedation/Anxiety Stop: 03/04/24 17:37 Dexamethasone 6 mg/ Syringe 1.5 mls @ 1 mls/min IV DAILY [facility] Stop: 02/06/24 09:02 Last Admin: 02/04/24 08:50 Dose: 1 mls/min Influenza Virus Vaccine Quadrival (Do Not Administer Flu Vaccine) 1 each N/A PRN PRN PRN Reason: Notification Stop: 03/04/24 17:37 Lorazepam (Lorazepam 0.5 Mg Tab) 0.5 mg PO Q8H PRN PRN Reason: Sedation/Anxiety Stop: 03/04/24 17:37 Magnesium Hydroxide (Magnesium Hydroxide Susp 30 Ml Udc) 30 ml PO Q24H PRN PRN Reason: Constipation Stop: 03/04/24 17:37 Metoprolol Succinate (Metoprolol Succ 25mg Ext Rel Tab) 25 mg PO DAILY [facility] Stop: 03/05/24 08:59 Last Admin: 02/04/24 08:50 Dose: 25 mg Miscellaneous (Remove Nicoderm Patch) 1 each N/A DAILY@0859 [facility] Stop: 03/04/24 19:58 Last Admin: 02/04/24 03:15 Dose: 1 each Multivitamins (Multivitamin Tab) 1 tab PO QAM [facility] Stop: 03/05/24 08:59 Last Admin: 02/04/24 08:50 Dose: 1 tab Naloxone HCl (Naloxone Hcl 0.4 Mg/1 Ml Vial/Carp) 0.1 mg IV Q5M PRN PRN Reason: Oversedation/Resp depression Stop: 03/04/24 17:37 Nicotine (Nicotine 21 Mg/24 Hr Tdsy) 1 patch TD QAM [facility] Stop: 03/04/24 19:59 Last Admin: 02/04/24 08:51 Dose: Not Given Ondansetron HCl (Ondansetron Inj 2 Mg/Ml 2 Ml Vial) 4 mg IV Q6H PRN PRN Reason: Nausea &/or Vomiting Stop: 03/04/24 17:37 Ondansetron HCl (Ondansetron 4 Mg Od Tab) 4 mg PO Q6H PRN PRN Reason: Nausea Stop: 03/04/24 17:37 Last Admin: 02/03/24 22:51 Dose: 4 mg Oxycodone HCl (Oxycodone Hcl Ir 5 Mg Tab (Immediate Release)) 5 - 10 mg PO Q4H PRN PRN Reason: Pain & Pre PT Stop: 02/17/24 17:37 Last Admin: 02/04/24 08:45 Dose: 10 mg Pantoprazole Sodium (Pantoprazole 40 Mg Tab) 40 mg PO QAM [facility] Stop: 03/05/24 08:59 Last Admin: 02/04/24 08:50 Dose: 40 mg Pneumococcal Polyvalent Vaccine (Do Not Administer Pneumococcal Vaccine) 1 each N/A PRN PRN PRN Reason: Notification Stop: 03/04/24 17:37 Polyethylene Glycol (Polyethylene (Miralax) 17 Gm Pack) 17 gm PO Q6 [facility] Stop: 03/05/24 05:59 Last Admin: 02/04/24 12:18 Dose: Not Given Potassium Chloride (Potassium Chloride 10 Meq Tabcr) 10 meq PO QAM [facility] Stop: 03/05/24 08:59 Senna/Docusate Sodium (Docusate Sodium/Senna 50/8.6mg Tab) 2 tab PO HS [facility] Stop: 03/04/24 20:59 Last Admin: 02/03/24 20:56 Dose: 2 tab Sodium Biphosphate/Sodium Phosphate (Sod Phosphate/Sod Biphosphate Enema 132 Ml Btl) 132 ml NE ONE PRN PRN Reason: Constipation Stop: 03/04/24 17:37 Spironolactone (Spironolactone 25 Mg Tab) 25 mg PO QAM [facility] Stop: 03/05/24 08:59 Tramadol HCl (Tramadol Hcl 50 Mg Tablet) 50 - 100 mg PO Q4H PRN PRN Reason: Moderate-Severe pain & Pre PT Stop: 03/04/24 17:37 Valsartan (Valsartan 80 Mg Tab) 80 mg PO QAM [facility] Stop: 03/05/24 08:59 Last Admin: 02/04/24 08:50 Dose: 80 mg
--- NOTE | 2024-02-05 07:49 | Orthopedic Progress Note ---
Date of Service February 05, 2024 Assessment & Plan (1) Neurogenic claudication due to lumbar spinal stenosis: Plan: Opal is postoperative day 2 status post T11-L4 decompression and fusion. Will continue with physical therapy today. Maintain SERG drain. Continue with pain control. DVT prophylaxis is in the form teds and SCDs. Continue with aggressive bowel regimen. I have consulted case management to discuss home versus rehab options. Admission and Anticipated Discharge Date Admission Date: February 03, 2024 Subjective Opal is postoperative day 2 status post T11-L4 decompression and fusion. She has complaints of back pain today. No radicular leg pain. SERG drain output last shift was 130 cc. Yesterday in physical therapy ambulating 15 feet. Review of Systems Review of Systems: All systems reviewed & are unremarkable except as noted in HPI & below Physical Exam Physical Exam: Laying in bed in no acute distress Alert and oriented x 3 Dressing is clean dry and intact Calf soft nontender bilaterally strength intact bilateral lower extremities Results & Data Vital Signs (Past 12 Hours) Vital Signs Temp Pulse Resp BP Pulse Ox O2 Del Method 02/05/24 07:39 36.6 C 96 H 16 127/73 92 Room Air 02/04/24 20:05 36.5 C 96 H 20 112/68 95 Room Air Queries Orthopedic Spine Acute Posthemorrhagic Anemia: Yes Obesity: Yes
[2024-02-05] MEDS: ACETAMINOPHEN 500 MG TAB PO PRN (08:00)
[2024-02-05 12:03] LABS: Basophils # (auto) 0.01 K/uL (0.00-0.20); Basophils % (auto) 0.1 %; Eosinophils # (auto) 0.01 K/uL (0.00-0.50); Eosinophils % (auto) 0.1 %; Hematocrit (blood only) 26.7 % (37.0-47.0); Hemoglobin 9.5 g/dl (12.0-16.0); Immature Granulocytes # (auto) 0.13 K/uL (0.01-0.20); Immature Granulocytes % (auto) 0.7 %; Lymphocytes # (auto) 1.29 K/uL (1.20-3.40); Lymphocytes % (auto) 7.1 %; Mean Corpuscular Hemoglobin 32.1 pg (25.0-34.0); Mean Corpuscular Hgb Conc 35.6 g/dL (32.0-36.0); Mean Corpuscular Volume 90.2 fL (80.0-100.0); Monocytes # (auto) 1.32 K/uL (0.11-0.59); Monocytes % (auto) 7.2 %; Neutrophils # (auto) 15.47 K/uL (1.40-6.50); Neutrophils % (auto) 84.8 %; Platelet Count 235 K/uL (130-400); RDW Coefficient of Variation 12.6 % (11.5-14.5); RDW Standard Deviation 41.1 fL (36.4-46.3); Red Blood Count 2.96 M/uL (4.20-5.40); White Blood Count 18.23 K/ul (4.8-10.8)
[2024-02-05 12:16] LABS: BUN Creatinine Ratio 22.6 (10-20); Calcium 8.4 mg/dl (8.6-10.3); Creatinine Clr Calc Pharmacy 79.6 ml/min; Est GFR (African American) 82.8 ml/min; Est GFR (Non-African American) 71.4 ml/min; Magnesium 1.4 mg/dl (1.7-2.4); Potassium 3.8 mmol/L (3.5-5.1)
--- NOTE | 2024-02-05 13:09 | Hospitalist Progress Note ---
Date of Service February 05, 2024 Assessment & Plan (1) S/P spinal surgery: (2) Neurogenic claudication due to lumbar spinal stenosis: Plan: S/P removal posterior instrumentation L4-L5, decompression & fusion T11-L4 by Dr Delarosa on 02/03/2024 [id number]#[id number] Pain is reasonably controlled with current medications Management as per Ortho PT/OT as appropriate DVT prophylaxis per ortho Incentive spirometry Clinically stable with unremarkable labs Will need rehab on discharge Left foot pain History of injury to the left mid lateral foot as a child No acute pain back on examination Advised to see an orthopedic surgeon in the outpatient (3) HTN (hypertension): Plan: BP stable Continue valsartan, metoprolol succinate with holding parameters Blood pressure remains on the lower side at 103/63 (4) Chronic heart failure with preserved ejection fraction: Plan: 10/06/23 Echo: EF: 55-59%, grade I diastolic dysfunction, mild aortic sclerosis without stenosis Appears euvolemic Hold hold Lasix and spironolactone, KCl supplement and and reassess volume status tomorrow Continue metoprolol succinate, valsartan with holding parameters No signs and or symptoms of fluid overload or shortness of breath Denies any cardiac symptoms (5) Chronic obstructive pulmonary disease: Plan: No sign acute exacerbation Chronic clear productive cough at baseline and intermittent wheezing. Denies increased cough or sputum production. Reports prior history of being on daily maintenance inhaler however reports insurance and affordability issues so uses albuterol TID as "preventative" Continue albuterol prn No wheezing and no shortness of breath (6) Anxiety and depression: Plan: Continue home medications (7) SHAN (obstructive sleep apnea): Plan: CPAP HS (8) Prediabetes: Plan: A1c: 6.0 on 07/01/2023 Diet controlled Monitor glucose on am labs A1c in AM (9) Tobacco use: Plan: Smoking cessation encouraged Nicotine patch DVT Prophylaxis SCDs per ortho Disposition per primary service Follows with Dr Pedraza for routine care Admission and Anticipated Discharge Date Admission Date: February 03, 2024 Subjective 02/04/2024 The patient was seen and examined in medical floor She is status post T11-L4 decompression and fusion Minimal pain at the back Numbness in the legs are better Has been getting physical therapy and denies any other significant symptoms 02/05/2024 The patient was seen and examined in medical floor He has been complaining of some pain in the left foot-he had an injury as a child on the left lateral midfoot Pain is worse today at the back Will need rehab and likely to be discharged tomorrow or day after Review of Systems Review of Systems: All systems reviewed and are unremarkable except as noted below Physical Exam Physical Exam: Sitting on a chair without any acute distress Constitutional: well developed, well nourished and + obese; not ill appearing Eyes: PERRL, conjunctivae normal, anicteric sclerae ENMT: external ear and nose normal, oropharynx normal Neck: trachea midline, no thyromegaly Respiratory: no respiratory distress Auscultation: lungs clear to auscultation bilaterally Cardiovascular: Rate/Rhythm: regular rate and regular rhythm; not tachycardic Heart Sounds: normal S1 and normal S2; no murmur Extremities: + edema (Trace edema bilaterally) Gastrointestinal (Abdomen): Inspection/Auscultation: + abdomen distended and normal bowel sounds Percussion/Palpation: abdomen soft; abdomen nontender Neurologic: normal touch/pain/proprioception and moves all extremities; no focal motor deficits Psychiatric: A+Ox3, euthymic affect Lymphatic: no cervical or axillary lymphadenopathy Results & Data Results & Data Vital Signs (Past 12 Hours) Vital Signs Temp Pulse Resp BP Pulse Ox O2 Del Method 02/05/24 11:00 36.8 C 86 18 108/68 96 Room Air 02/05/24 07:39 36.6 C 96 H 16 127/73 92 Room Air Laboratory Results Short CBC 02/05/24 Range/Units 11:22 WBC 18.23 H (4.8-10.8) K/ul Hgb 9.5 L (12.0-16.0) g/dl Hct 26.7 L (37.0-47.0) % Plt Count 235 (130-400) K/uL BMP 02/05/24 11:22 Sodium 135 L Potassium 3.8 Chloride 101 Carbon Dioxide 29 BUN 19 Creatinine 0.84 Glucose 136 H Calcium 8.4 L Medications Administered Current Inpatient Medications Acetaminophen (Acetaminophen 500 Mg Tab) 1,000 mg PO Q8H PRN PRN Reason: MILD Pain Scale 1,2,3 & Pre PT Stop: 03/04/24 17:37 Last Admin: 02/05/24 08:00 Dose: 1,000 mg Al Hydrox/Mg Hydrox/Simethicone (Aluminum/Magnesium Susp 30 Ml Udc) 30 ml PO Q6H PRN PRN Reason: Dyspepsia Stop: 03/04/24 17:37 Albuterol (Albuterol Hfa 8 Gm Inhaler) 2 puffs INH QID PRN PRN Reason: sob Stop: 03/04/24 17:37 Atorvastatin Calcium (Atorvastatin 40 Mg Tab) 40 mg PO HS [facility] Stop: 03/04/24 20:59 Last Admin: 02/04/24 20:10 Dose: 40 mg Bisacodyl (Bisacodyl 10 Mg Supp) 10 mg [place] DAILY PRN PRN Reason: Constipation Stop: 03/04/24 17:37 Diphenhydramine HCl (Diphenhydramine Capsule 25 Mg Cap) 25 mg PO Q6H PRN PRN Reason: Allergic Rhinitis/Insomnia Stop: 03/04/24 17:37 Duloxetine HCl (Duloxetine Hcl 30 Mg Cap) 30 mg PO PM [facility] Stop: 03/04/24 20:59 Last Admin: 02/04/24 20:11 Dose: 30 mg Duloxetine HCl (Duloxetine Hcl 60 Mg Cap) 60 mg PO BID [facility] Stop: 03/04/24 20:59 Last Admin: 02/05/24 08:01 Dose: 60 mg Famotidine (Famotidine 20 Mg Tab) 20 mg PO Q12H PRN PRN Reason: Dyspepsia Stop: 03/04/24 17:37 Hydromorphone HCl (Hydromorphone Inj 0.5 Mg/0.5 Ml Syr) 0.5 mg IV Q3H PRN PRN Reason: MODERATE Pain (Scale 4,5,6) & Pre PT Stop: 02/17/24 17:37 Last Admin: 02/05/24 08:55 Dose: 0.5 mg Hydromorphone HCl (Hydromorphone Inj 1 Mg/Ml Syringe) 1 mg IV Q3H PRN PRN Reason: SEVERE Pain (Scale 7,8,9,10) Stop: 02/17/24 17:37 Last Admin: 02/05/24 04:48 Dose: 1 mg Hydroxyzine HCl (Hydroxyzine Hcl 25 Mg Tab) 25 mg PO Q8H PRN PRN Reason: Anxiety Stop: 03/04/24 17:37 Promethazine HCl 12.5 mg/ (Sodium Chloride) 50.5 mls @ 202 mls/hr IV Q6H PRN PRN Reason: Nausea &/or Vomiting Stop: 03/04/24 17:37 Last Infusion: 02/04/24 04:37 Dose: Infused Lorazepam 0.5 mg/ Syringe 0.5 mls @ 2 mls/min IV Q8H PRN; Protocol PRN Reason: Sedation/Anxiety Stop: 03/04/24 17:37 Dexamethasone 6 mg/ Syringe 1.5 mls @ 1 mls/min IV DAILY [facility] Stop: 02/06/24 09:02 Last Admin: 02/05/24 08:00 Dose: 1 mls/min Influenza Virus Vaccine Quadrival (Do Not Administer Flu Vaccine) 1 each N/A PRN PRN PRN Reason: Notification Stop: 03/04/24 17:37 Lorazepam (Lorazepam 0.5 Mg Tab) 0.5 mg PO Q8H PRN PRN Reason: Sedation/Anxiety Stop: 03/04/24 17:37 Magnesium Hydroxide (Magnesium Hydroxide Susp 30 Ml Udc) 30 ml PO Q24H PRN PRN Reason: Constipation Stop: 03/04/24 17:37 Metoprolol Succinate (Metoprolol Succ 25mg Ext Rel Tab) 25 mg PO DAILY [facility] Stop: 03/05/24 08:59 Last Admin: 02/05/24 08:01 Dose: 25 mg Miscellaneous (Remove Nicoderm Patch) 1 each N/A DAILY@0859 [facility] Stop: 03/04/24 19:58 Last Admin: 02/05/24 07:53 Dose: Not Given Multivitamins (Multivitamin Tab) 1 tab PO QAM [facility] Stop: 03/05/24 08:59 Last Admin: 02/05/24 08:01 Dose: 1 tab Naloxone HCl (Naloxone Hcl 0.4 Mg/1 Ml Vial/Carp) 0.1 mg IV Q5M PRN PRN Reason: Oversedation/Resp depression Stop: 03/04/24 17:37 Nicotine (Nicotine 21 Mg/24 Hr Tdsy) 1 patch TD QAM [facility] Stop: 03/04/24 19:59 Last Admin: 02/05/24 07:57 Dose: Not Given Ondansetron HCl (Ondansetron Inj 2 Mg/Ml 2 Ml Vial) 4 mg IV Q6H PRN PRN Reason: Nausea &/or Vomiting Stop: 03/04/24 17:37 Ondansetron HCl (Ondansetron 4 Mg Od Tab) 4 mg PO Q6H PRN PRN Reason: Nausea Stop: 03/04/24 17:37 Last Admin: 02/03/24 22:51 Dose: 4 mg Oxycodone HCl (Oxycodone Hcl Ir 5 Mg Tab (Immediate Release)) 5 - 10 mg PO Q4H PRN PRN Reason: Pain & Pre PT Stop: 02/17/24 17:37 Last Admin: 02/05/24 08:00 Dose: 10 mg Pantoprazole Sodium (Pantoprazole 40 Mg Tab) 40 mg PO QAM [facility] Stop: 03/05/24 08:59 Last Admin: 02/05/24 08:01 Dose: 40 mg Pneumococcal Polyvalent Vaccine (Do Not Administer Pneumococcal Vaccine) 1 each N/A PRN PRN PRN Reason: Notification Stop: 03/04/24 17:37 Polyethylene Glycol (Polyethylene (Miralax) 17 Gm Pack) 17 gm PO Q6 [facility] Stop: 03/05/24 05:59 Last Admin: 02/05/24 11:40 Dose: 17 gm Potassium Chloride (Potassium Chloride 10 Meq Tabcr) 10 meq PO QAM [facility] Stop: 03/05/24 08:59 Senna/Docusate Sodium (Docusate Sodium/Senna 50/8.6mg Tab) 2 tab PO HS [facility] Stop: 03/04/24 20:59 Last Admin: 02/04/24 20:12 Dose: 2 tab Sodium Biphosphate/Sodium Phosphate (Sod Phosphate/Sod Biphosphate Enema 132 Ml Btl) 132 ml [place] ONE PRN PRN Reason: Constipation Stop: 03/04/24 17:37 Spironolactone (Spironolactone 25 Mg Tab) 25 mg PO QAM [facility] Stop: 03/05/24 08:59 Tramadol HCl (Tramadol Hcl 50 Mg Tablet) 50 - 100 mg PO Q4H PRN PRN Reason: Moderate-Severe pain & Pre PT Stop: 03/04/24 17:37 Valsartan (Valsartan 80 Mg Tab) 80 mg PO QAM [facility] Stop: 03/05/24 08:59 Last Admin: 02/05/24 08:01 Dose: 80 mg
[2024-02-05] MEDS: ONDANSETRON INJ 2 MG/ML 2 ML VIAL IV PRN (21:55)
[2024-02-06 05:54] LABS: Basophils # (auto) 0.03 K/uL (0.00-0.20); Basophils % (auto) 0.2 %; Eosinophils # (auto) 0.02 K/uL (0.00-0.50); Eosinophils % (auto) 0.1 %; Hematocrit (blood only) 30.4 % (37.0-47.0); Hemoglobin 10.6 g/dl (12.0-16.0); Immature Granulocytes # (auto) 0.13 K/uL (0.01-0.20); Immature Granulocytes % (auto) 0.7 %; Lymphocytes # (auto) 3.36 K/uL (1.20-3.40); Lymphocytes % (auto) 17.5 %; Mean Corpuscular Hemoglobin 31.9 pg (25.0-34.0); Mean Corpuscular Hgb Conc 34.9 g/dL (32.0-36.0); Mean Corpuscular Volume 91.6 fL (80.0-100.0); Mean Platelet Volume 10.5 fL (9.4-12.4); Monocytes # (auto) 1.58 K/uL (0.11-0.59); Monocytes % (auto) 8.2 %; Neutrophils # (auto) 14.06 K/uL (1.40-6.50); Neutrophils % (auto) 73.3 %; Platelet Count 291 K/uL (130-400); RDW Coefficient of Variation 12.6 % (11.5-14.5); RDW Standard Deviation 41.5 fL (36.4-46.3); Red Blood Count 3.32 M/uL (4.20-5.40); White Blood Count 19.18 K/ul (4.8-10.8)
[2024-02-06 06:09] LABS: BUN Creatinine Ratio 21.6 (10-20); Calcium 9.2 mg/dl (8.6-10.3); Creatinine Clr Calc Pharmacy 90.4 ml/min; Est GFR (African American) 96.5 ml/min; Est GFR (Non-African American) 83.2 ml/min; Potassium 3.9 mmol/L (3.5-5.1)
--- NOTE | 2024-02-06 09:45 | Orthopedic Progress Note ---
Date of Service February 06, 2024 Assessment & Plan (1) Neurogenic claudication due to lumbar spinal stenosis: Plan: This time we will continue physical therapy. Hope for rehab placement today or tomorrow. Admission and Anticipated Discharge Date Admission Date: February 03, 2024 Subjective Back pain controlled Physical Exam Physical Exam: Patient is up in chair. She has good strength testing. She is following tolerating physical therapy. Results & Data Vital Signs (Past 12 Hours) Vital Signs Temp Pulse Resp BP Pulse Ox O2 Del Method 02/06/24 07:02 36.5 C 86 18 125/70 96 Room Air 02/05/24 22:57 Room Air Queries Orthopedic Spine Acute Posthemorrhagic Anemia: Yes Obesity: Yes
[2024-02-06] MEDS: traMADol HCL 50 MG TABLET PO PRN (09:59)
--- NOTE | 2024-02-06 13:04 | Hospitalist Progress Note ---
Date of Service February 06, 2024 Assessment & Plan (1) S/P spinal surgery: (2) Neurogenic claudication due to lumbar spinal stenosis: Plan: S/P removal posterior instrumentation L4-L5, decompression & fusion T11-L4 by Dr Delarosa on 02/03/2024 [id number] Pain is reasonably controlled with current medications Management as per Ortho PT/OT as appropriate DVT prophylaxis per ortho Incentive spirometry Clinically stable with unremarkable labs Has been getting physical therapy and medically stable to be discharged Awaiting placement and likely be discharged at the end of the day today or tomorrow Left foot pain History of injury to the left mid lateral foot as a child No acute pain back on examination Advised to see an orthopedic surgeon in the outpatient Denies any more pain today (3) HTN (hypertension): Plan: BP stable Continue valsartan, metoprolol succinate with holding parameters Blood pressure remains on the lower side at 103/63 (4) Chronic heart failure with preserved ejection fraction: Plan: 10/06/23 Echo: EF: 55-59%, grade I diastolic dysfunction, mild aortic sclerosis without stenosis Appears euvolemic Hold hold Lasix and spironolactone, KCl supplement and and reassess volume status tomorrow Continue metoprolol succinate, valsartan with holding parameters No signs and or symptoms of fluid overload or shortness of breath Denies any cardiac symptoms She was advised to take her usual medications that she has been taking at home (5) Chronic obstructive pulmonary disease: Plan: No sign acute exacerbation Chronic clear productive cough at baseline and intermittent wheezing. Denies increased cough or sputum production. Reports prior history of being on daily maintenance inhaler however reports insurance and affordability issues so uses albuterol TID as "preventative" Continue albuterol prn No wheezing and no shortness of breath (6) Anxiety and depression: Plan: Continue home medications (7) SHAN (obstructive sleep apnea): Plan: CPAP HS (8) Prediabetes: Plan: A1c: 6.0 on 07/01/2023 Diet controlled Monitor glucose on am labs A1c in AM (9) Tobacco use: Plan: Smoking cessation encouraged Nicotine patch DVT Prophylaxis SCDs per ortho Disposition per primary service Follows with Dr Pedraza for routine care Admission and Anticipated Discharge Date Admission Date: February 03, 2024 Subjective 02/04/2024 The patient was seen and examined in medical floor She is status post T11-L4 decompression and fusion Minimal pain at the back Numbness in the legs are better Has been getting physical therapy and denies any other significant symptoms 02/05/2024 The patient was seen and examined in medical floor He has been complaining of some pain in the left foot-he had an injury as a child on the left lateral midfoot Pain is worse today at the back Will need rehab and likely to be discharged tomorrow or day after 02/06/2024 The patient was seen and examined in medical floor She has been feeling much better Awaiting placement Review of Systems Review of Systems: All systems reviewed and are unremarkable except as noted below Physical Exam Physical Exam: Sitting on a chair without any acute distress Constitutional: well developed, well nourished and + obese; not ill appearing Eyes: PERRL, conjunctivae normal, anicteric sclerae ENMT: external ear and nose normal, oropharynx normal Neck: trachea midline, no thyromegaly Respiratory: no respiratory distress Auscultation: lungs clear to auscultation bilaterally Cardiovascular: Rate/Rhythm: regular rate and regular rhythm; not tachycardic Heart Sounds: normal S1 and normal S2; no murmur Extremities: + edema (Trace edema bilaterally) Gastrointestinal (Abdomen): Inspection/Auscultation: + abdomen distended and normal bowel sounds Percussion/Palpation: abdomen soft; abdomen nontender Neurologic: normal touch/pain/proprioception and moves all extremities; no foc al motor deficits Psychiatric: A+Ox3, euthymic affect Lymphatic: no cervical or axillary lymphadenopathy Results & Data Results & Data Vital Signs (Past 12 Hours) Vital Signs Temp Pulse Resp BP Pulse Ox O2 Del Method 02/06/24 07:35 Room Air 02/06/24 07:02 36.5 C 86 18 125/70 96 Room Air Laboratory Results Short CBC 02/06/24 Range/Units 05:31 WBC 19.18 H (4.8-10.8) K/ul Hgb 10.6 L (12.0-16.0) g/dl Hct 30.4 L (37.0-47.0) % Plt Count 291 (130-400) K/uL BMP 02/06/24 05:31 Sodium 139 Potassium 3.9 Chloride 103 Carbon Dioxide 29 BUN 16 Creatinine 0.74 Glucose 125 H Calcium 9.2 Medications Administered Current Inpatient Medications Acetaminophen (Acetaminophen 500 Mg Tab) 1,000 mg PO Q8H PRN PRN Reason: MILD Pain Scale 1,2,3 & Pre PT Stop: 03/04/24 17:37 Last Admin: 02/05/24 08:00 Dose: 1,000 mg Al Hydrox/Mg Hydrox/Simethicone (Aluminum/Magnesium Susp 30 Ml Udc) 30 ml PO Q6H PRN PRN Reason: Dyspepsia Stop: 03/04/24 17:37 Albuterol (Albuterol Hfa 8 Gm Inhaler) 2 puffs INH QID PRN PRN Reason: sob Stop: 03/04/24 17:37 Atorvastatin Calcium (Atorvastatin 40 Mg Tab) 40 mg PO HS MONY Stop: 03/04/24 20:59 Last Admin: 02/05/24 20:17 Dose: 40 mg Bisacodyl (Bisacodyl 10 Mg Supp) 10 mg GA DAILY PRN PRN Reason: Constipation Stop: 03/04/24 17:37 Diphenhydramine HCl (Diphenhydramine Capsule 25 Mg Cap) 25 mg PO Q6H PRN PRN Reason: Allergic Rhinitis/Insomnia Stop: 03/04/24 17:37 Duloxetine HCl (Duloxetine Hcl 30 Mg Cap) 30 mg PO PM MONY Stop: 03/04/24 20:59 Last Admin: 02/05/24 20:17 Dose: 30 mg Duloxetine HCl (Duloxetine Hcl 60 Mg Cap) 60 mg PO BID MONY Stop: 03/04/24 20:59 Last Admin: 02/06/24 09:50 Dose: 60 mg Famotidine (Famotidine 20 Mg Tab) 20 mg PO Q12H PRN PRN Reason: Dyspepsia Stop: 03/04/24 17:37 Hydromorphone HCl (Hydromorphone Inj 0.5 Mg/0.5 Ml Syr) 0.5 mg IV Q3H PRN PRN Reason: MODERATE Pain (Scale 4,5,6) & Pre PT Stop: 02/17/24 17:37 Last Admin: 02/06/24 11:14 Dose: 0.5 mg Hydromorphone HCl (Hydromorphone Inj 1 Mg/Ml Syringe) 1 mg IV Q3H PRN PRN Reason: SEVERE Pain (Scale 7,8,9,10) Stop: 02/17/24 17:37 Last Admin: 02/06/24 02:56 Dose: 1 mg Hydroxyzine HCl (Hydroxyzine Hcl 25 Mg Tab) 25 mg PO Q8H PRN PRN Reason: Anxiety Stop: 03/04/24 17:37 Promethazine HCl 12.5 mg/ (Sodium Chloride) 50.5 mls @ 202 mls/hr IV Q6H PRN PRN Reason: Nausea &/or Vomiting Stop: 03/04/24 17:37 Last Infusion: 02/04/24 04:37 Dose: Infused Lorazepam 0.5 mg/ Syringe 0.5 mls @ 2 mls/min IV Q8H PRN; Protocol PRN Reason: Sedation/Anxiety Stop: 03/04/24 17:37 Influenza Virus Vaccine Quadrival (Do Not Administer Flu Vaccine) 1 each N/A PRN PRN PRN Reason: Notification Stop: 03/04/24 17:37 Lorazepam (Lorazepam 0.5 Mg Tab) 0.5 mg PO Q8H PRN PRN Reason: Sedation/Anxiety Stop: 03/04/24 17:37 Magnesium Hydroxide (Magnesium Hydroxide Susp 30 Ml Udc) 30 ml PO Q24H PRN PRN Reason: Constipation Stop: 03/04/24 17:37 Metoprolol Succinate (Metoprolol Succ 25mg Ext Rel Tab) 25 mg PO DAILY [facility] Stop: 03/05/24 08:59 Last Admin: 02/06/24 09:50 Dose: 25 mg Miscellaneous (Remove Nicoderm Patch) 1 each N/A DAILY@0859 [facility] Stop: 03/04/24 19:58 Last Admin: 02/06/24 09:51 Dose: 1 each Multivitamins (Multivitamin Tab) 1 tab PO QAM [facility] Stop: 03/05/24 08:59 Last Admin: 02/06/24 09:50 Dose: 1 tab Naloxone HCl (Naloxone Hcl 0.4 Mg/1 Ml Vial/Carp) 0.1 mg IV Q5M PRN PRN Reason: Oversedation/Resp depression Stop: 03/04/24 17:37 Nicotine (Nicotine 21 Mg/24 Hr Tdsy) 1 patch TD QAM [facility] Stop: 03/04/24 19:59 Last Admin: 02/06/24 09:51 Dose: Not Given Ondansetron HCl (Ondansetron Inj 2 Mg/Ml 2 Ml Vial) 4 mg IV Q6H PRN PRN Reason: Nausea &/or Vomiting Stop: 03/04/24 17:37 Ondansetron HCl (Ondansetron 4 Mg Od Tab) 4 mg PO Q6H PRN PRN Reason: Nausea Stop: 03/04/24 17:37 Last Admin: 02/05/24 21:59 Dose: 4 mg Oxycodone HCl (Oxycodone Hcl Ir 5 Mg Tab (Immediate Release)) 5 - 10 mg PO Q4H PRN PRN Reason: Pain & Pre PT Stop: 02/17/24 17:37 Last Admin: 02/06/24 07:38 Dose: 10 mg Pantoprazole Sodium (Pantoprazole 40 Mg Tab) [facility] [place]: 03/05/24 08:59 Last Admin: 02/06/24 09:50 Dose: 40 mg Pneumococcal Polyvalent Vaccine (Do Not Administer Pneumococcal Vaccine) 1 each N/A PRN PRN PRN Reason: Notification Stop: 03/04/24 17:37 Polyethylene Glycol (Polyethylene (Miralax) 17 Gm Pack) 17 gm PO Q6 MONY Stop: 03/05/24 05:59 Last Admin: 02/06/24 11:11 Dose: 17 gm Potassium Chloride (Potassium Chloride 10 Meq Tabcr) 10 meq PO QAM [facility] Stop: 03/05/24 08:59 Senna/Docusate Sodium (Docusate Sodium/Senna 50/8.6mg Tab) 2 tab PO HS [facility] Stop: 03/04/24 20:59 Last Admin: 02/05/24 20:17 Dose: 2 tab Sodium Biphosphate/Sodium Phosphate (Sod Phosphate/Sod Biphosphate Enema 132 Ml Btl) 132 ml GA ONE PRN PRN Reason: Constipation Stop: 03/04/24 17:37 Spironolactone (Spironolactone 25 Mg Tab) 25 mg PO QAM [facility] Stop: 03/05/24 08:59 Tramadol HCl (Tramadol Hcl 50 Mg Tablet) 50 - 100 mg PO Q4H PRN PRN Reason: Moderate-Severe pain & Pre PT Stop: 03/04/24 17:37 Last Admin: 02/06/24 09:59 Dose: 100 mg Valsartan (Valsartan 80 Mg Tab) 80 mg PO QAM [facility] Stop: 03/05/24 08:59 Last Admin: 02/06/24 09:49 Dose: 80 mg
[2024-02-06] MEDS: bisacodyL 10 MG SUPP PR PRN (14:43)
[2024-02-06] MEDS: NICOTINE 7 MG/24 HR TDSY TD SCH (16:29)
[2024-02-07] MEDS: ALUMINUM/MAGNESIUM SUSP 30 ML UDC PO PRN (05:47)
--- NOTE | 2024-02-07 08:08 | Orthopedic Progress Note ---
Date of Service February 07, 2024 Assessment & Plan (1) Neurogenic claudication due to lumbar spinal stenosis: Plan: At this time we will continue physical therapy. Will discontinue her MiraLAX. If no bowel movement this morning we will move forward with a fleets enema. We are awaiting placement versus home health. Admission and Anticipated Discharge Date Admission Date: February 03, 2024 Subjective Back pain is controlled leg pain improved. Patient is struggling with nausea this morning. She has not had significant bowel movement since admission. Physical Exam Physical Exam: Patient is seen with the bedside. She is good strength testing. Results & Data Vital Signs (Past 12 Hours) Vital Signs Temp Pulse Resp BP Pulse Ox O2 Del Method 02/07/24 07:49 94 Room Air 02/07/24 07:23 36.9 C 91 H 16 149/78 H 92 Room Air Queries Orthopedic Spine Acute Posthemorrhagic Anemia: Yes Obesity: Yes
[2024-02-07] MEDS: MAGNESIUM HYDROXIDE SUSP 30 ML UDC PO PRN (12:04)
[2024-02-08] MEDS: MAGNESIUM CHLORIDE W/CALCIUM 64MG DELAYED REL TAB PO SCH (10:54)
--- NOTE | 2024-02-08 11:51 | Discharge Summary ---
Date of Service February 08, 2024 Admission HPI Per Admitting Provider This is a 68-year-old female presents with chronic persistent back and leg pain after an extensive course of nonoperative care is here for surgical invention. Admission Exam (Per Admitting) Constitutional WD/WN, vitals as above Eyes normal visual bender by confrontation ENMT external ear and nose normal, oropharynx normal Neck normal visual inspection Respiratory normal respiratory effort Cardiovascular Extremities: normal capillary refill Gastrointestinal (Abdomen) Inspection/Auscultation: abdomen normal to inspection Musculoskeletal Spine: + pain with thoraco-lumbar ROM Extremities: extremities normal to inspection and strength 5/5 throughout Skin no rashes, warm and dry Neurologic normal touch/pain/proprioception and moves all extremities Psychiatric A+Ox3, euthymic affect Discharge Data Consultations 02/03/24 17:38 Consult Hospitalist Routine Procedures Performed Operation Date: 02/03/24 10:25 Actual Procedures p T11-L4 Decompression and Fusion, Spinal Cord Monitoring(Not Applicable) - Herbert Delarosa DO s L4-L5 Hardware Removal,(Not Applicable) - Herbert Delarosa DO Hospital Course (1) Neurogenic claudication due to lumbar spinal stenosis: Opal underwent a T11 L4 decompression and fusion with hardware removal L4-5 Dr. Delarosa on February 02. She is being discharged home today February 07 postop day 5 with home health services. She has made progression on a daily basis. This includes improving with physical therapy. She had a bowel movement. Lower extremities feel stronger. Lab values have been stable throughout her postoperative course Discharge Instructions ACTIVITY RECOMMENDATIONS: SELF CARE INSTRUCTIONS AFTER THORACIC/LUMBAR FUSIONS 1. You may walk to your tolerance. It is good exercise for your legs and back. Expect some back and intermittent leg aches and pains. 2. You may perform "counter-top" level activities (make a sandwich, fidel with a project, etc.). 3. No bending or lifting of more than 10 pounds or back twisting of any nature (roll like a log when turning in bed). 4. You may ride in a car for 20-30 minutes at a time. No driving until after your first visit with your doctor. 5. Frequent changes of position and restricting sitting to 30 minutes at a time will help limit the amount of back spasms and stiffness you may experience. 6. You may discontinue the use of ambulatory aids (cane, crutches, etc.) once your strength and confidence allow. 7. You may data warehouse administrator the shower and let water strike your incision when you arrive home at least once daily. Do not take a tub bath, sit in a hot tub or go into a swimming pool until after your first recheck in the office. SPECIAL CARE INSTRUCTIONS: VERY IMPORTANT TO READ AND REVIEW A. Your surgical incision has been closed with a cosmetic suture under the skin that will dissolve in about 6 weeks. In 14 days, you can use a pair of clean scissors and cut the suture that is left outside of the skin at the ends of your incision. 1. The small skin tapes can be removed 7 days after surgery if they have not fallen off by that point. 2. You may keep the wound open to air as much as possible to promote healing after post-op day number 5 unless told otherwise by your doctor. 3. If you think the wound looks like it is becoming infected (redness or worsening drainage) and/or you are experiencing fever, chill or worsening back pain and muscle spasms, contact the office so that we may evaluate you as soon as possible. B. Complications are uncommon, but please contact us if you have any signs or symptoms of: 1. wound infection (fever higher than 102.5 degrees F, redness, separation of wound, drainage, or increasing pain from the incision) 2. blood clots in legs (pain, swelling, redness and warmth in legs) 3. urinary tract infection (fever higher than 102.5 degrees F, burning upon urination or increased frequency of urination) 4. nerve problems (inability to walk on your toes or heels, numbness, loss of bowel or bladder control) 5. any other symptoms that concern you C. Please call the office at if you have any concerns or questions about your operation or recovery. D. No smoking! Smoking drastically decreases the chance of a solid fusion. E. Do not take any anti-inflammatory medications (Indocin, Advil, Motrin, Aspirin, Naprosyn, etc.) as these may inhibit the chance of a solid fusion. Tylenol is okay to take for pain. MANAGING PAIN AFTER SPINAL SURGERY 1. Narcotic medication is intended for short-term use and will be provided for surgical pain. Surgical pain usually lasts for a period of 4-6 weeks. Narcotic medication includes Percocet, Vicodin, Darvocet, Tylenol #3 or Lortab. 2. Longer-term pain is more appropriately treated with non-narcotic medication such as Tylenol ES. 3. Muscle spasm is not appropriately treated with narcotics. Muscle relaxers such as Soma, Flexeril or Skelaxin can be used along with Tylenol ES. 4. Remember that we all live with some "aches and pains". This is not unusual or uncommon after an injury or as we get older. a. Back pain is expected and may include muscle spasms for 4 to 6 weeks after surgery. The pain should gradually improve. If the pain worsens for no apparent reason, please contact the office. b. Intermittent leg pain may also be experienced and should not be concerned about unless it worsens for no apparent reason. If so, please contact the office. 5. We will provide appropriate medication within the normal guidelines of their prescribed use. We will also be very cautious and aware of potential abuse and extended duration of patients' medication needs. a. Pain medications are for your comfort and to assist with sleep and rest so that the tissue can heal. They are not provided in order to return to normal activity and should not be used through the day. To do so or worsening pain at night can result from ongoing tissue damage and development of tolerance to the prescribed medicine. 6. Please allow 2-3 days to process refills. Prescriptions will not be mailed but must be picked up at the office. FOLLOW UP VISIT: Keep your scheduled follow-up appointment. Any questions, please call the office at .
--- NOTE | 2024-02-08 13:33 | Hospitalist Progress Note ---
Date of Service February 08, 2024 Assessment & Plan (1) S/P spinal surgery: (2) Neurogenic claudication due to lumbar spinal stenosis: Plan: Lumbar spinal stenosis with neurogenic claudication S/P removal posterior instrumentation L4-L5, decompression & fusion T11-L4 by Dr Delarosa on 02/03/2024 Postoperative acute blood loss anemia Wound care, activity, DVT prophylaxis as per orthopedics Continue bowel regimen to prevent constipation Pain control Monitor CBC Advised to follow-up with PCP in 1 week upon discharge Leukocytosis Likely reactive secondary to above No obvious source of infection Monitor CBC Left foot pain History of injury to the left mid lateral foot as a child No acute pain back on examination Advised to see an orthopedic surgeon in the outpatient Denies any pain currently (3) HTN (hypertension): Plan: Continue valsartan, metoprolol succinate Monitor BP (4) Chronic heart failure with preserved ejection fraction: Plan: 10/06/23 Echo: EF: 55-59%, grade I diastolic dysfunction, mild aortic sclerosis without stenosis Appears euvolemic Continue metoprolol succinate, valsartan Resume home diuretics on discharge (5) Chronic obstructive pulmonary disease: Plan: Reports prior history of being on daily maintenance inhaler however reports insurance and affordability issues so uses albuterol TID as "preventative" Continue albuterol prn No signs of acute exacerbation (6) Anxiety and depression: Plan: Continue home medications (7) SHAN (obstructive sleep apnea): Plan: CPAP HS (8) Prediabetes: Plan: Diet controlled HbA1c 5.7 Monitor BGs (9) Tobacco use: Plan: Smoking cessation encouraged Nicotine patch Morbid obesity BMI 43 DVT Prophylaxis SCDs per ortho CODE STATUS Full code Admission and Anticipated Discharge Date Admission Date: February 03, 2024 Subjective Patient is seen and examined at bedside States having back pain, controlled with medications Had transient nausea this morning resolved after having bowel movement today Offers no other complaints Denies any chest pain, dyspnea, dizziness, abdominal pain Eager to get discharged home today Review of Systems Review of Systems: All systems reviewed & are unremarkable except as noted in Subjective Physical Exam Physical Exam: Physical Exam: Vitals signs as noted above General Appearance:Obese, no apparent distress Head: normocephalic, Atraumatic Eyes: normal inspection, EOMI Neck: supple, Trachea midline Respiratory/Chest: Normal breath sounds, CTA, No accessory muscle use Cardiovascular: S1, S2, No murmur Abdomen/GI:Soft, Non tender, Bowel sounds present Extremities/Musculoskeletal:normal inspection, Trace pedal edema Neurologic/Psych:AAOX3, grossly no focal neurological deficits Skin: normal color, warm Results & Data Results & Data Vital Signs (Past 12 Hours) Vital Signs Temp Pulse Resp BP Pulse Ox O2 Del Method 02/08/24 07:44 36.8 C 95 H 16 109/57 L 94 Room Air
== END 2024-02-08 13:36 | disposition home health service (06) | DRG 460 ==
LOC: ASU 09:02 → 3E 15:20